=== PATIENT | male | born 1945 | race Caucasian/White ===

== ENCOUNTER → 2016-09-07 | Outpatient (CLI) | payer BC ==
[2016-09-07 10:56] LABS: Basophils # (auto) 0 uL; Basophils % (auto) 0.5 % (0.0-2.0); Eosinophils # (auto) 0.2 uL; Eosinophils % (auto) 2.1 % (0.0-7.0); Hematocrit 34.3 % (41.0-53.0); Hemoglobin 10.9 g/dL (13.5-17.5); Lymphocytes # (auto) 1.2 uL; Lymphocytes % (auto) 13.6 % (10.0-50.0); Mean Corpuscular Hemoglobin 29.8 pg (28.0-32.0); Mean Corpuscular Hgb Conc. 31.8 g/dL (32.0-36.0); Mean Corpuscular Volume 93.5 fL (80.0-100.0); Monocytes # (auto) 0.5 uL; Monocytes % (auto) 5.3 % (0.0-12.0); Neutrophils # (auto) 6.8 uL; Neutrophils % (auto) 78.5 % (37.0-80.0); Platelet Count (auto) 260 10^3/uL (140-450); Red Cell Distribution Width 14.1 % (11.6-16.0); White Blood Cell 8.6 10^3/uL (4.4-10.8)
[2016-09-07 11:59] LABS: Urine Bilirubin Negative (Negative); Urine Blood Negative /uL (Negative); Urine Color Yellow (Yellow); Urine Ketone Negative (Negative); Urine Nitrite Negative (Negative); Urine RBC <1 /hpf (0 - 3); Urine Squamous Epithelial Cell FEW /hpf (<5); Urine Urobilinogen Normal (Negative)
[2016-09-07 12:01] LABS: Urine Glucose 4+ mg/dL (Normal)
[2016-09-07 14:17] LABS: Cholesterol 160 mg/dL (<200); HDL Cholesterol 39 mg/dL (40-59); LDL Cholesterol 118 mg/dL (<100); Triglycerides 103 mg/dL (<150)
[2016-09-07 14:48] LABS: Albumin 3.8 g/dL (3.4-5.0); BUN/Creatinine Ratio 21.4; Bilirubin, Total 0.4 mg/dL (0.2-1.0); Calcium 9.1 mg/dL (8.5-10.1); Potassium 4.3 mmol/L (3.5-5.1); Total Protein 8.1 g/dL (6.4-8.2)
== END | disposition home or self-care (01) ==
LOC: LAB 08:57
DX: E11.21 Type 2 diabetes mellitus with diabetic nephropathy (principal); Z12.5 Encounter for screening for malignant neoplasm of prostate; E55.9 Vitamin D deficiency, unspecified
CPT/HCPCS: 36415; 80053; 80061; 81001; 82043; 82270; 82306; 83036; 84153; 84443; 85025

== ENCOUNTER → 2016-12-20 | Outpatient (CLI) | payer BC ==
[2016-12-20 10:07] LABS: Basophils # (auto) 0 uL; Basophils % (auto) 0.5 % (0.0-2.0); Eosinophils # (auto) 0.2 uL; Eosinophils % (auto) 2.2 % (0.0-7.0); Hematocrit 33.2 % (41.0-53.0); Hemoglobin 11.1 g/dL (13.5-17.5); Lymphocytes # (auto) 1.1 uL; Lymphocytes % (auto) 13.8 % (10.0-50.0); Mean Corpuscular Hemoglobin 31.4 pg (28.0-32.0); Mean Corpuscular Hgb Conc. 33.3 g/dL (32.0-36.0); Mean Corpuscular Volume 94.2 fL (80.0-100.0); Mean Platelet Volume 9.1 fL (7.4-10.4); Monocytes # (auto) 0.4 uL; Monocytes % (auto) 5.4 % (0.0-12.0); Neutrophils # (auto) 6.5 uL; Neutrophils % (auto) 78.1 % (37.0-80.0); Platelet Count (auto) 298 10^3/uL (140-450); Red Cell Distribution Width 13.7 % (11.6-16.0); White Blood Cell 8.3 10^3/uL (4.4-10.8)
[2016-12-20 10:34] LABS: Albumin 3.5 g/dL (3.4-5.0); BUN/Creatinine Ratio 17.5; Bilirubin, Total 0.5 mg/dL (0.2-1.0); Calcium 8.5 mg/dL (8.5-10.1); Magnesium 2.3 mg/dL (1.6-2.6); Phosphorus 3.1 mg/dL (2.5-4.90); Potassium 3.7 mmol/L (3.5-5.1); Total Protein 7.9 g/dL (6.4-8.2); Uric Acid 8.2 mg/dL (3.5-7.2)
[2016-12-20 11:42] LABS: Urine Bilirubin Negative (Negative); Urine Blood Negative /uL (Negative); Urine Color Yellow (Yellow); Urine Granular Cast FEW /lpf (0); Urine Ketone Negative (Negative); Urine Nitrite Negative (Negative); Urine RBC <1 /hpf (0 - 3); Urine Squamous Epithelial Cell FEW /hpf (<5); Urine Urobilinogen Normal (Negative); Urine pH 5.5 (5.0-8.0)
[2016-12-20 11:45] LABS: Urine Glucose 4+ mg/dL (Normal)
[2016-12-20 11:48] LABS: Urine Protein/Creatinine Ratio 0.61
== END | disposition home or self-care (01) ==
LOC: LAB 09:18
PROVIDERS: ATTEND Internal Medicine Nephrology
DX: N18.3 Chronic kidney disease, stage 3 (moderate) (principal); E83.39 Other disorders of phosphorus metabolism; E27.3 Drug-induced adrenocortical insufficiency; E83.2 Disorders of zinc metabolism; M10.9 Gout, unspecified; R97.20 Elevated prostate specific antigen [PSA]; R80.9 Proteinuria, unspecified; E55.9 Vitamin D deficiency, unspecified; E11.21 Type 2 diabetes mellitus with diabetic nephropathy
CPT/HCPCS: 36415; 80053; 80061; 81001; 82043; 82306; 82570; 83036; 83735; 83970; 84100; 84153; 84156; 84443; 84550; 85025

== ENCOUNTER 2017-02-06 07:47 | Day surgery (SDC) | payer BC ==
[2017-02-02 09:42] LABS: Basophils # (auto) 0 uL; CONDITION Y; Eosinophils # (auto) 0.2 uL; Eosinophils % (auto) 1.8 % (0.0-7.0); Hematocrit 32.7 % (41.0-53.0); Hemoglobin 10.8 g/dL (13.5-17.5); Lymphocytes % (auto) 11.3 % (10.0-50.0); Mean Platelet Volume 8.2 fL (7.4-10.4); Monocytes # (auto) 0.6 uL; Neutrophils # (auto) 7.3 uL; Neutrophils % (auto) 79.9 % (37.0-80.0); Platelet Count (auto) 275 10^3/uL (140-450); Red Cell Distribution Width 13.9 % (11.6-16.0); White Blood Cell 9.1 10^3/uL (4.4-10.8)
[2017-02-02 09:57] LABS: Urine Bilirubin Negative (Negative); Urine Blood Negative /uL (Negative); Urine Color Yellow (Yellow); Urine Ketone Negative (Negative); Urine Nitrite Negative (Negative); Urine RBC <1 /hpf (0 - 3); Urine Squamous Epithelial Cell FEW /hpf (<5); Urine Urobilinogen Normal (Negative); Urine pH 5.5 (5.0-8.0)
[2017-02-02 10:04] LABS: Urine Glucose 4+ mg/dL (Normal)
[2017-02-02 10:06] LABS: Albumin 3.4 g/dL (3.4-5.0); BUN/Creatinine Ratio 19.1; Bilirubin, Total 0.3 mg/dL (0.2-1.0); Calcium 8.5 mg/dL (8.5-10.1); Potassium 4.2 mmol/L (3.5-5.1); Total Protein 7.3 g/dL (6.4-8.2)
[2017-02-02 10:07] LABS: INR 0.92 (0.9-1.15); Partial Thromboplastin Time 26.6 sec (22.64-33.71)
[~2017-02-06] VITALS: Ht 167.6 cm; Wt 93.0 kg
[~2017-02-06 07:47] MED LIST: CANA300T OR; EXENINJ SC; GLIP-115 PO; TERA5CAP42 PO
[2017-02-06] MEDS ORDERED: ceFAZolin 1GM/50ML D5W 50 ML IV ONE (08:58)
[2017-02-06] MEDS ORDERED: PROPOFOL 10 MG/ML 20 ML IV ONE (09:55)
[2017-02-06] MEDS ORDERED: fentaNYL CITRATE 100 MCG/2 ML VL ONE (09:55)
[2017-02-06] MEDS ORDERED: HYDROCORTISONE SOD SUCC 100 MG/2ML INJ VIAL ONE (10:18)
[2017-02-06] MEDS ORDERED: ePHEDrine SULFATE 50 MG/ML AMP IV PRN (11:00)
[2017-02-06] MEDS ORDERED: ONDANSETRON HCL 4 MG/2 ML VIAL IV ONE (11:00)
[2017-02-06] MEDS ORDERED: hydrALAZINE HCL 20 MG/ML VL IV PRN (11:00)
[2017-02-06] MEDS ORDERED: fentaNYL CITRATE 100 MCG/2 ML VL IV ONE (11:00)
[2017-02-06 12:00] VITALS: BP 168/78
== END 2017-02-06 12:00 | disposition home or self-care (01) ==
LOC: SUR 07:47
PROVIDERS: ATTEND Urology
DX: N20.0 Calculus of kidney (principal); E11.22 Type 2 diabetes mellitus with diabetic chronic kidney disease; N18.3 Chronic kidney disease, stage 3 (moderate); E66.9 Obesity, unspecified
CPT/HCPCS: 36415; 50590; 80053; 81001; 82962; 85025; 85610; 85730; J0690; J1720; J2704; J3010

== ENCOUNTER → 2017-04-10 | Outpatient (CLI) | payer BC ==
[2017-04-10 17:16] LABS: BUN/Creatinine Ratio 20.7; Calcium 8.5 mg/dL (8.5-10.1); Potassium 3.9 mmol/L (3.5-5.1)
== END | disposition home or self-care (01) ==
LOC: LAB 15:44
PROVIDERS: ATTEND Family Medicine
DX: E11.22 Type 2 diabetes mellitus with diabetic chronic kidney disease (principal); N18.3 Chronic kidney disease, stage 3 (moderate)
CPT/HCPCS: 36415; 80048; 83036

== ENCOUNTER → 2017-10-17 | Outpatient (CLI) | payer BC | END | disposition home or self-care (01) | LOC: LAB 07:52 | PROVIDERS: ATTEND Family Medicine | DX: E11.22 Type 2 diabetes mellitus with diabetic chronic kidney disease (principal); N18.3 Chronic kidney disease, stage 3 (moderate) | CPT/HCPCS: 36415; 83036 ==

== ENCOUNTER → 2018-01-24 | Outpatient (CLI) | payer BC ==
[2018-01-24 09:08] LABS: Basophils # (auto) 0.1 uL; Basophils % (auto) 0.7 % (0.0-2.0); Eosinophils # (auto) 0.1 uL; Hematocrit 32.8 % (41.0-53.0); Hemoglobin 10.6 g/dL (13.5-17.5); Lymphocytes % (auto) 13.4 % (10.0-50.0); Mean Corpuscular Hemoglobin 30.5 pg (28.0-32.0); Mean Corpuscular Hgb Conc. 32.5 g/dL (32.0-36.0); Monocytes # (auto) 0.5 uL; Monocytes % (auto) 6.5 % (0.0-12.0); Neutrophils # (auto) 5.7 uL; Neutrophils % (auto) 77.4 % (37.0-80.0); Platelet Count (auto) 218 10^3/uL (140-450); Red Blood Cells 3.48 10^6/uL (4.5-5.90); Red Cell Distribution Width 14.9 % (11.8-14.3); White Blood Cell 7.3 10^3/uL (4.4-10.8)
[2018-01-24 09:17] LABS: Urine Bacteria NONE SEEN /hpf (None Seen); Urine Blood TRACE /uL (Negative); Urine Specific Gravity 1.023 (1.001-1.035); Urine WBC 3 /hpf (0 - 3)
[2018-01-24 09:41] LABS: Albumin 3.3 g/dL (3.4-5.0); BUN/Creatinine Ratio 20.5; Bilirubin, Total 0.4 mg/dL (0.2-1.0); Calcium 8.4 mg/dL (8.5-10.1); Potassium 4.5 mmol/L (3.5-5.1); Total Protein 7.4 g/dL (6.4-8.2)
== END | disposition home or self-care (01) ==
LOC: LAB 08:54
PROVIDERS: ATTEND Family Medicine
DX: I12.9 Hypertensive chronic kidney disease with stage 1 through stage 4 chronic kidney disease, or unspecified chronic kidney disease (principal); E11.22 Type 2 diabetes mellitus with diabetic chronic kidney disease; N18.3 Chronic kidney disease, stage 3 (moderate); E11.21 Type 2 diabetes mellitus with diabetic nephropathy; E78.00 Pure hypercholesterolemia, unspecified
CPT/HCPCS: 36415; 80053; 80061; 81001; 82043; 82306; 83036; 84153; 85025

== ENCOUNTER → 2019-02-20 | Outpatient (CLI) | payer BC ==
[~2019-02-20] MED LIST changes: -GLIP-115 PO; +GLIP5TAB12 PO
[2019-02-20 09:03] LABS: Basophils # (auto) 0.1 uL; Basophils % (auto) 0.5 % (0.0-2.0); Eosinophils # (auto) 0.2 uL; Eosinophils % (auto) 2.2 % (0.0-7.0); Hematocrit 29.4 % (41.0-53.0); Hemoglobin 9.5 g/dL (13.5-17.5); Lymphocytes # (auto) 1.2 uL; Mean Corpuscular Hemoglobin 31.1 pg (28.0-32.0); Mean Corpuscular Hgb Conc. 32.4 g/dL (32.0-36.0); Mean Corpuscular Volume 95.9 fL (80.0-100.0); Monocytes # (auto) 0.6 uL; Monocytes % (auto) 6.2 % (0.0-12.0); Neutrophils # (auto) 7.8 uL; Neutrophils % (auto) 79.1 % (37.0-80.0); Nucleated Red Blood Cells % 0.1 %; Platelet Count (auto) 263 10^3/uL (140-450); Red Blood Cells 3.07 10^6/uL (4.5-5.90); Red Cell Distribution Width 14.5 % (11.8-14.3); White Blood Cell 9.9 10^3/uL (4.4-10.8)
[2019-02-20 09:07] LABS: Urine Bacteria NONE SEEN /hpf (None Seen); Urine Blood Negative /uL (Negative); Urine Specific Gravity 1.015 (1.001-1.035); Urine WBC 1 /hpf (0 - 3)
[2019-02-20 10:25] LABS: Potassium 4.3 mmol/L (3.5-5.1)
[2019-02-20 10:36] LABS: Albumin 3.1 g/dL (3.4-5.0); BUN/Creatinine Ratio 25.3; Bilirubin, Total 0.2 mg/dL (0.2-1.0); Total Protein 7.7 g/dL (6.4-8.2); Uric Acid 9.2 mg/dL (3.5-7.2)
== END | disposition home or self-care (01) ==
LOC: LAB 08:39
PROVIDERS: ATTEND Nurse Practitioner
DX: E78.5 Hyperlipidemia, unspecified (principal); E11.9 Type 2 diabetes mellitus without complications
CPT/HCPCS: 36415; 80053; 80061; 81001; 82306; 83036; 84153; 84443; 84550; 85025

== ENCOUNTER → 2019-07-29 | Outpatient (CLI) | payer BC ==
[2019-07-29 10:48] LABS: Albumin 2.6 g/dL (3.4-5.0); Calcium 8.3 mg/dL (8.5-10.1); Potassium 3.9 mmol/L (3.5-5.1)
[2019-07-29 10:50] LABS: Urine Bacteria NONE SEEN /hpf (None Seen); Urine Blood Negative /uL (Negative); Urine Specific Gravity 1.016 (1.001-1.035); Urine WBC 2 /hpf (0 - 3)
[2019-07-29 10:54] LABS: Bilirubin, Total 0.2 mg/dL (0.2-1.0); Total Protein 6.8 g/dL (6.4-8.2)
== END | disposition home or self-care (01) ==
LOC: LAB 09:49
PROVIDERS: ATTEND Nurse Practitioner
DX: Z00.00 Encounter for general adult medical examination without abnormal findings (principal); E78.5 Hyperlipidemia, unspecified; E11.9 Type 2 diabetes mellitus without complications
CPT/HCPCS: 36415; 80053; 80061; 81001; 82043; 83036; 84443

== ENCOUNTER → 2019-08-21 | Outpatient (CLI) | payer BC | END | disposition home or self-care (01) | LOC: LAB 07:06 | PROVIDERS: ATTEND Nurse Practitioner | DX: L03.311 Cellulitis of abdominal wall (principal) | CPT/HCPCS: 87077; 87186; 87205 ==

== ENCOUNTER → 2019-09-02 | Day surgery (SDC) | payer BC ==
[2019-08-29 10:58] LABS: Basophils # (auto) 0 uL; Eosinophils # (auto) 0.1 uL; Mean Corpuscular Volume 88.8 fL (80.0-100.0); Monocytes # (auto) 0.5 uL; Monocytes % (auto) 4.3 % (0.0-12.0)
[2019-08-29 11:00] LABS: Basophils % (auto) 0.4 % (0.0-2.0); Eosinophils % (auto) 0.6 % (0.0-7.0); Hematocrit 25.9 % (41.0-53.0); Hemoglobin 8.1 g/dL (13.5-17.5); Lymphocytes % (auto) 8.9 % (10.0-50.0); Mean Corpuscular Hemoglobin 27.7 pg (28.0-32.0); Mean Corpuscular Hgb Conc. 31.2 g/dL (32.0-36.0); Neutrophils # (auto) 9.4 uL; Neutrophils % (auto) 85.8 % (37.0-80.0); Platelet Count (auto) 374 10^3/uL (140-450); Red Blood Cells 2.92 10^6/uL (4.5-5.90); Red Cell Distribution Width 15.2 % (11.8-14.3); White Blood Cell 10.9 10^3/uL (4.4-10.8)
[2019-08-29 11:12] LABS: INR 0.99 (0.9-1.15); Partial Thromboplastin Time 27.2 sec (23.64-32.05)
[~2019-09-02] VITALS: Ht 167.6 cm; Wt 90.7 kg
[~2019-09-02] MED LIST changes: -CANA300T OR; -EXENINJ SC; +METF-370 PO; +SODIUM CHLORIDE LOCK 10 ML ONE; -TERA5CAP42 PO; +diphenhdrAMINE HCL 50 MG/1 ML VL ONE
[2019-09-02] MEDS: MIDAZOLAM HCL 5 MG/ML-1ML VIAL ONE ×2 (12:37→12:41)
[2019-09-02] MEDS: fentaNYL CITRATE 100 MCG/2 ML VL ONE ×2 (12:37→12:41)
[2019-09-02 13:29] VITALS: BP 144/59
== END | disposition home or self-care (01) ==
LOC: GI 11:07
PROVIDERS: ATTEND Internal Medicine Gastroenterology
DX: Z12.11 Encounter for screening for malignant neoplasm of colon (principal); K63.89 Other specified diseases of intestine; K52.89 Other specified noninfective gastroenteritis and colitis; K57.30 Diverticulosis of large intestine without perforation or abscess without bleeding; E11.9 Type 2 diabetes mellitus without complications; Z79.899 Other long term (current) drug therapy; Z79.84 Long term (current) use of oral hypoglycemic drugs
CPT/HCPCS: 36415; 45380; 82962; 85025; 85610; 85730; 88305; J1200; J2250; J3010; J7030; 99152; 99153

== ENCOUNTER → 2019-11-06 | Outpatient (CLI) | payer BC ==
[~2019-11-06] MED LIST changes: -SODIUM CHLORIDE LOCK 10 ML ONE; -diphenhdrAMINE HCL 50 MG/1 ML VL ONE
[2019-11-06 11:06] LABS: Basophils # (auto) 0 10 ^3/uL (0-0.2); Monocytes # (auto) 0.5 10 ^3/uL (0-1.3); Platelet Count (auto) 297 10^3/uL (140-450)
[2019-11-06 11:08] LABS: Basophils % (auto) 0.4 % (0.0-2.0); Eosinophils # (auto) 0.2 10 ^3/uL (0-0.8); Eosinophils % (auto) 2.1 % (0.0-7.0); Hematocrit 21.3 % (41.0-53.0); Lymphocytes # (auto) 0.9 10 ^3/uL (0.4-5.4); Lymphocytes % (auto) 10.6 % (10.0-50.0); Mean Corpuscular Hemoglobin 28.3 pg (28.0-32.0); Mean Corpuscular Hgb Conc. 32.3 g/dL (32.0-36.0); Mean Corpuscular Volume 87.7 fL (80.0-100.0); Neutrophils # (auto) 6.9 10 ^3/uL (1.6-8.6); Neutrophils % (auto) 80.9 % (37.0-80.0); Red Blood Cells 2.42 10^6/uL (4.5-5.90); White Blood Cell 8.5 10^3/uL (4.4-10.8)
[2019-11-06 11:20] LABS: Hemoglobin 6.9 g/dL (13.5-17.5)
[2019-11-06 11:24] LABS: Albumin 2.4 g/dL (3.4-5.0); Calcium 7.6 mg/dL (8.5-10.1)
[2019-11-06 11:31] LABS: BUN/Creatinine Ratio 14.4; Bilirubin, Total 0.1 mg/dL (0.2-1.0); Total Protein 6.3 g/dL (6.4-8.2)
[2019-11-06 11:38] LABS: Urine Bacteria NONE SEEN /hpf (None Seen); Urine Blood Negative /uL (Negative); Urine Mucus FEW (None Seen); Urine Specific Gravity 1.018 (1.001-1.035); Urine WBC 16 /hpf (0 - 3)
== END | disposition home or self-care (01) ==
LOC: LAB 10:50
PROVIDERS: ATTEND Nurse Practitioner
DX: E11.9 Type 2 diabetes mellitus without complications (principal); E78.5 Hyperlipidemia, unspecified
CPT/HCPCS: 36415; 80053; 80061; 81001; 83036; 85025

== ENCOUNTER → 2019-11-11 | Outpatient (CLI) | payer BC ==
[2019-11-11 10:41] LABS: Eosinophils # (auto) 0.1 10 ^3/uL (0-0.8); Hemoglobin 7.5 g/dL (13.5-17.5); Lymphocytes # (auto) 0.9 10 ^3/uL (0.4-5.4); Mean Corpuscular Volume 88.5 fL (80.0-100.0); Monocytes # (auto) 0.5 10 ^3/uL (0-1.3); Monocytes % (auto) 5.1 % (0.0-12.0); Neutrophils # (auto) 8.8 10 ^3/uL (1.6-8.6)
[2019-11-11 10:43] LABS: Basophils # (auto) 0.1 10 ^3/uL (0-0.2); Basophils % (auto) 0.6 % (0.0-2.0); Eosinophils % (auto) 0.8 % (0.0-7.0); Hematocrit 24.1 % (41.0-53.0); Mean Corpuscular Hemoglobin 27.7 pg (28.0-32.0); Mean Corpuscular Hgb Conc. 31.3 g/dL (32.0-36.0); Neutrophils % (auto) 84.5 % (37.0-80.0); Platelet Count (auto) 366 10^3/uL (140-450); Red Blood Cells 2.72 10^6/uL (4.5-5.90); Red Cell Distribution Width 17.7 % (11.8-14.3); White Blood Cell 10.5 10^3/uL (4.4-10.8)
[2019-11-11 11:00] LABS: INR 1.01 (0.9-1.15)
[2019-11-11 11:43] LABS: % Iron Saturation 5.3 % (20-55)
== END | disposition home or self-care (01) ==
LOC: LAB 10:29
PROVIDERS: ATTEND Nurse Practitioner
DX: D64.9 Anemia, unspecified (principal)
CPT/HCPCS: 36415; 82270; 83540; 83550; 85025; 85610; 85730

== ENCOUNTER 2019-12-12 13:21 | Inpatient (IN) | payer BC ==
[~2019-12-12] VITALS: Ht 167.6 cm; Wt 85.2 kg
[2019-12-12 20:00] VITALS: BP 167/68
--- NOTE | 2019-12-12 20:00 | NUR ---
PT HERE FROM [facility];DIRECT ADMIT.
[2019-12-12] MEDS: SODIUM CHLORIDE 0.9% 1,000 ML IV SCH (20:42)
[2019-12-12] MEDS ORDERED: DEXTROSE (50%) 50ML SYRG IV PRN (20:45)
[2019-12-12] MEDS ORDERED: ONDANSETRON HCL 4 MG/2 ML VIAL IV PRN (20:45)
[2019-12-12] MEDS ORDERED: HYDROcodone-ACET 5/325MG TAB PO PRN (20:45)
[2019-12-12] MEDS ORDERED: MORPHINE SULF INJ 2 MG/ML SYRINGE 1ML IV PRN (20:45)
[2019-12-12] MEDS ORDERED: DOCUSATE SOD 100 MG CAP PO PRN (20:45)
--- NOTE | 2019-12-12 21:30 | NUR ---
PATIENT UNABLE TO PROVIDE COMPLETE MEDICATION RECONCILIATION. PATIENT DID NOT BRING LIST. WILL INFORM RN.
[2019-12-12 22:00] VITALS: BP 167/68
[2019-12-12 22:00] LABS: Basophils # (auto) 0 10 ^3/uL (0-0.2); Basophils % (auto) 0.5 % (0.0-2.0); Eosinophils # (auto) 0.2 10 ^3/uL (0-0.8); Lymphocytes # (auto) 0.9 10 ^3/uL (0.4-5.4); Monocytes # (auto) 0.8 10 ^3/uL (0-1.3); Monocytes % (auto) 8.8 % (0.0-12.0); Neutrophils # (auto) 7.1 10 ^3/uL (1.6-8.6); Red Cell Distribution Width 16.2 % (11.8-14.3); White Blood Cell 9.1 10^3/uL (4.4-10.8)
[2019-12-12 22:01] LABS: Eosinophils % (auto) 1.8 % (0.0-7.0); Hematocrit 26.4 % (41.0-53.0); Hemoglobin 8.4 g/dL (13.5-17.5); Lymphocytes % (auto) 10.4 % (10.0-50.0); Mean Corpuscular Hgb Conc. 31.8 g/dL (32.0-36.0); Mean Corpuscular Volume 87.9 fL (80.0-100.0); Neutrophils % (auto) 78.5 % (37.0-80.0); Platelet Count (auto) 375 10^3/uL (140-450)
--- NOTE | 2019-12-12 22:03 | NUR ---
PT BACK FROM RADIOLOGY.
[2019-12-12] MEDS ORDERED: VANCOMYCIN 1GM/250ML 250 ML IV ONE (22:30)
--- NOTE | 2019-12-12 23:09 | NUR ---
PT MEDICATED WITH TYLENOL FOR HEADACHE-PAIN OF 4.
[2019-12-12] MEDS: CLINDAMYCIN 600MG IV 50 ML IV SCH (23:18)
[2019-12-12] MEDS: ACETAMINOPHEN 325 MG TAB PO PRN (23:19)
--- NOTE | 2019-12-12 23:38 | NUR ---
PHOTOS TAKEN OF UPPER CHEST INFECTED FASCIA AND LOWER ABDOMINAL CELLULITIS.
[2019-12-12 23:40] LABS: BUN/Creatinine Ratio 18.8; Calcium 7.8 mg/dL (8.5-10.1)
[2019-12-13] MEDS: InsuLIN REG 1unit/0.01ml Soln (100units/ml) SC SCH ×6 (04:00→22:18)
[2019-12-13] MEDS: ACCU-CHEK COMFORT CURVE STRIP VI SCH ×6 (04:00→22:17)
[2019-12-13 05:00] VITALS: BP 134/62
[2019-12-13] MEDS: CLINDAMYCIN 600MG IV 50 ML IV SCH (05:07)
--- NOTE | 2019-12-13 05:45 | NUR ---
IV LEFT HAND LEAKING;20 GAUGE INSERTED IN LEFT RADIAL AREA-LEFT WRIST. PT TOLERATED WELL.
[2019-12-13] MEDS: SODIUM CHLORIDE 0.9% 1,000 ML IV SCH ×2 (06:42→16:42)
--- NOTE | 2019-12-13 07:41 | NUR ---
RE: MRSA MRSA collected by CECY RINCON.
--- NOTE | 2019-12-13 08:00 | NUR ---
Morning note Patient resting in bed with even and unlabored respirations, no distress noted. Patient denies blood in the stool, black stool, blood in the urine or sputum with blood in it. Patient states "Just a few days okay the doctor told me my kidney function was about 30% and that it may not be producing the stuff to make the blood." Instructed patient on POC, fall precautions and to call for assistance as needed. patient verbalized understanding. Fall precautions in place with call light within reach.
[2019-12-13 08:41] VITALS: BP 141/73
--- NOTE | 2019-12-13 09:00 | NUR ---
RE: Insulin administration Medication held due to patient having a low POC glucose reading after administration of previous dose of insulin per sliding scale order. Patient to be reassessed at next scheduled time.
--- NOTE | 2019-12-13 09:47 | NUR ---
RE: surgical consult - spoke with Dr. Burrows Hospitalist to determine reason for anemia and then reconsult surgical after, if needed, per Dr. Burrows.
[2019-12-13] MEDS ORDERED: VANCOMYCIN 1GM/250ML 250 ML IV SCH (11:00)
--- NOTE | 2019-12-13 11:00 | NUR ---
WOUND CARE NOTE: Wound care in to see patient per wound care request regarding wounds that are noted present on admission. Bedside nurse took photograph of patient's wounds upon admission for reference. Patient is 74 years old male with admitting diagnosis of CVA, Anemia. Patient is resting in bed in Rm. 216B. Patient is awake, alert and oriented. He's denies any pain at this time. He's self turning and repositioning and his Jay score is 21. Noted patient's upper chest (5x4.5x0.3cm) and lower abdomen (7x28x1.5cm) has open full thickness wound. Wound beds are red with pink and bright red genaro wound. Chest wound has minimal serosanguineous drainage. Lower abdominal wound has moderate serous drainage. No odor noted on wounds. Patient reported he has had the wounds "for over six months". He added that abdominal wounds started with "insulin injections". He continues further that some pocket of pus developed, opened and drain. Wound culture specimen taken and sent to lab for processing. Cleansed wounds with wound cleanser, patted dry with gauze. Fill open wound cavity to Rt lateral aspect of abdominal wound with alginate rope. Covered wound beds with Thera honey gauze. Covered chest wound with Opti foam gentle dressing. Covered abdominal wound with abd pads and secured with Medipore tape per MD order. Patent tolerated well and denies any other wound. RECOMMENDATION: Nursing to continue with dressing changes to chest and lower abdominal wounds per MD order, Dietary consult, surgical consult, redistribute pressure points with pillows, continue monitoring by wound care while patient is hospitalized. Addendum: 12/13/19 at 1530 by Kristy Correa RN Amended: Links added.
[2019-12-13] MEDS: ACETAMINOPHEN 325 MG TAB PO PRN ×2 (11:09→22:05)
[2019-12-13] MEDS ORDERED: DEXTROSE (50%) 50ML SYRG IV PRN (12:15)
[2019-12-13] MEDS ORDERED: VANCOMYCIN PER PHARMACY 0 MG IV SCH (12:15)
--- NOTE | 2019-12-13 12:15 | NUR ---
MD was at bedside - notified MD RE: BP Dr. Ryan Huffman was at bedside. POC discussed with the patient and this RN. Notified MD of elevated BP. MD verbalized understanding. Home medications refilled from external me history. Orders received and read back to verify.
[2019-12-13 12:24] VITALS: BP_SYST 147; BP_SYST 159; BP_DIAS 59; BP_DIAS 73
[2019-12-13] MEDS: PIPERACILLIN-TAZOB 2.25GM 50 ML IV SCH ×2 (13:56→18:26)
[2019-12-13] MEDS ORDERED: PIPERACILLIN-TAZOB 3.375GM 100 ML IV SCH (14:00)
[2019-12-13 16:22] VITALS: BP 130/59
[2019-12-13] MEDS: FERROUS SULFATE 325 MG TAB PO SCH (18:26)
--- NOTE | 2019-12-13 18:35 | NUR ---
Closing note patient resting in bed with even and unlabored respirations, no distress noted. Fall precautions in place with call light within reach.
--- NOTE | 2019-12-13 19:29 | NUR ---
Care endorsed SERGEY Samuels.
--- NOTE | 2019-12-13 19:30 | NUR ---
Opening Shift Note Assumed care of patient, awake and alert watching TV. No S/S of distress/SOB or pain. Instructed on POC and pt VU; he will call for assist PRN. This RN will continue to monitor for changes Q1hr and PRN. Bed is in low position with HOB in Woodard's position. Nurse call light at pt's side.
[2019-12-13 22:00] VITALS: BP 129/63
[2019-12-13] MEDS: ATORVASTATIN 20 MG TAB PO SCH (22:00)
[2019-12-13] MEDS: TERAZOSIN HCL 5 MG CAP PO SCH (22:01)
[2019-12-13 23:36] LABS: Urine Bacteria FEW /hpf (None Seen); Urine Blood TRACE /uL (Negative); Urine Specific Gravity 1.015 (1.001-1.035); Urine Sperm PRESENT /hpf (None Seen); Urine WBC 10 /hpf (0 - 3)
[2019-12-14 05:00] VITALS: BP 126/60
[2019-12-14 05:57] LABS: Basophils # (auto) 0.1 10 ^3/uL (0-0.2); Basophils % (auto) 0.6 % (0.0-2.0); Eosinophils # (auto) 0.3 10 ^3/uL (0-0.8); Eosinophils % (auto) 2.7 % (0.0-7.0); Hematocrit 27.1 % (41.0-53.0); Hemoglobin 8.7 g/dL (13.5-17.5); Lymphocytes % (auto) 9.5 % (10.0-50.0); Mean Corpuscular Hemoglobin 28.4 pg (28.0-32.0); Mean Corpuscular Hgb Conc. 32.2 g/dL (32.0-36.0); Monocytes # (auto) 0.8 10 ^3/uL (0-1.3); Neutrophils # (auto) 8.2 10 ^3/uL (1.6-8.6); Neutrophils % (auto) 79.2 % (37.0-80.0); Nucleated Red Blood Cells % 0.1 %; Platelet Count (auto) 349 10^3/uL (140-450); Red Blood Cells 3.08 10^6/uL (4.5-5.90); Red Cell Distribution Width 16.4 % (11.8-14.3); White Blood Cell 10.3 10^3/uL (4.4-10.8)
[2019-12-14] MEDS: ACCU-CHEK COMFORT CURVE STRIP VI SCH ×4 (06:07→21:13)
[2019-12-14] MEDS: InsuLIN REG 1unit/0.01ml Soln (100units/ml) SC SCH ×4 (06:08→21:17)
[2019-12-14] MEDS: PIPERACILLIN-TAZOB 2.25GM 50 ML IV SCH ×5 (06:09→23:58)
[2019-12-14 06:16] LABS: INR 1.03 (0.9-1.15); Partial Thromboplastin Time 28.3 sec (23.64-32.05)
[2019-12-14 06:26] LABS: Potassium 3.9 mmol/L (3.5-5.1)
[2019-12-14 06:31] LABS: Calcium 7.8 mg/dL (8.5-10.1)
[2019-12-14 08:51] VITALS: BP 126/76
[2019-12-14] MEDS ORDERED: HCTZ 25 MG TAB PO SCH (10:00)
[2019-12-14] MEDS: SODIUM CHLORIDE 0.9% 1,000 ML IV SCH ×3 (11:15→22:42)
[2019-12-14] MEDS: PANTOPRAZOLE 40 MG/10 ML VIAL INJ IV SCH (11:40)
[2019-12-14] MEDS: FERROUS SULFATE 325 MG TAB PO SCH ×2 (11:40→17:54)
[2019-12-14] MEDS: CITALOPRAM HYDROBR 20 MG TAB PO SCH (11:41)
[2019-12-14 12:25] VITALS: BP 165/69
--- NOTE | 2019-12-14 12:42 | NUR ---
Nutrition Assessment Notes Please refer to link for full assessment notes. Est Energy needs: [address] kcals (20-23 kcal/kgBW) Est Protein needs: 66-74 gms/day (0.8-0.9 gm/kgBW) d/t GFR (Stg 4) Will continue to monitor and reassess prn. Addendum: 12/14/19 at [address] Amended: Links added.
[2019-12-14] MEDS ORDERED: VANCOMYCIN 500 MG in D5W 5% 100 ML IV ONE (16:00)
[2019-12-14 16:33] VITALS: BP 154/59
--- NOTE | 2019-12-14 19:30 | NUR ---
Opening Shift Note Assumed care of patient, AOX4. No S/S of distress/SOB. Fall and safety precautions in place. Call light within reach and able to use. Instructed on plan of care and to call for assist PRN, patient verbalized understanding and in agreement. Will continue to monitor for changes Q1hr and PRN.
[2019-12-14] MEDS: ACETAMINOPHEN 325 MG TAB PO PRN (20:34)
[2019-12-14] MEDS: ATORVASTATIN 20 MG TAB PO SCH (21:13)
[2019-12-14] MEDS: TERAZOSIN HCL 5 MG CAP PO SCH (21:13)
[2019-12-14 22:45] VITALS: BP 124/51
[2019-12-14 22:50] VITALS: BP 156/71
--- NOTE | 2019-12-15 | NUR ---
NPO Explained to patient purpose/indication of NPO status for procedure. Patient verbalized understanding and in agreement. Will continue to monitor.
--- NOTE | 2019-12-15 01:34 | NUR ---
EKG OBTAINED AND PLACED IN CHART
[2019-12-15 05:15] LABS: Basophils # (auto) 0.1 10 ^3/uL (0-0.2); Basophils % (auto) 0.5 % (0.0-2.0); Eosinophils # (auto) 0.3 10 ^3/uL (0-0.8); Eosinophils % (auto) 2.7 % (0.0-7.0); Hematocrit 27.6 % (41.0-53.0); Hemoglobin 8.9 g/dL (13.5-17.5); Lymphocytes # (auto) 0.9 10 ^3/uL (0.4-5.4); Lymphocytes % (auto) 8.7 % (10.0-50.0); Mean Corpuscular Hemoglobin 27.8 pg (28.0-32.0); Mean Corpuscular Hgb Conc. 32.1 g/dL (32.0-36.0); Mean Corpuscular Volume 86.7 fL (80.0-100.0); Monocytes # (auto) 0.7 10 ^3/uL (0-1.3); Monocytes % (auto) 7.4 % (0.0-12.0); Neutrophils # (auto) 8.1 10 ^3/uL (1.6-8.6); Neutrophils % (auto) 80.7 % (37.0-80.0); Platelet Count (auto) 344 10^3/uL (140-450); Red Blood Cells 3.18 10^6/uL (4.5-5.90); Red Cell Distribution Width 16.2 % (11.8-14.3); White Blood Cell 10.1 10^3/uL (4.4-10.8)
[2019-12-15] MEDS: PIPERACILLIN-TAZOB 2.25GM 50 ML IV SCH ×3 (05:32→17:28)
[2019-12-15 05:33] LABS: BUN/Creatinine Ratio 18.5; Calcium 7.8 mg/dL (8.5-10.1); Potassium 4.3 mmol/L (3.5-5.1)
[2019-12-15 05:36] VITALS: BP 143/69
[2019-12-15] MEDS: ACCU-CHEK COMFORT CURVE STRIP VI SCH ×4 (06:19→21:13)
[2019-12-15] MEDS: InsuLIN REG 1unit/0.01ml Soln (100units/ml) SC SCH ×4 (06:20→21:15)
--- NOTE | 2019-12-15 07:21 | NUR ---
Opening Shift Note Assumed care of patient, awake and alert. No S/S of distress/SOB or pain. Instructed on POC and to call for assist PRN, will continue to monitor for changes Q1hr and PRN. Bed is set in lowest locked position with side rails up x 2 for safety and call light is within reach.
[2019-12-15 08:00] VITALS: BP 122/71
[2019-12-15] MEDS: FERROUS SULFATE 325 MG TAB PO SCH ×3 (08:00→17:29)
[2019-12-15 08:37] VITALS: BP 122/71
[2019-12-15] MEDS: SODIUM CHLORIDE 0.9% 1,000 ML IV SCH ×2 (09:10→17:48)
[2019-12-15] MEDS: CITALOPRAM HYDROBR 20 MG TAB PO SCH (10:00)
[2019-12-15] MEDS: PANTOPRAZOLE 40 MG/10 ML VIAL INJ IV SCH ×2 (10:07→21:13)
--- NOTE | 2019-12-15 10:57 | NUR ---
MD Sanchez at bedside for hematology consultation
--- NOTE | 2019-12-15 11:05 | NUR ---
Patient off unit Taken down to pre-op for procedure. IV flushed and is intact/patent. No distress noted upon departure.
[2019-12-15] MEDS ORDERED: LIDOCAINE VISCOUS 2% 15ML UD ONE (11:09)
[2019-12-15] MEDS ORDERED: SODIUM CHLORIDE LOCK 10 ML ONE (11:09)
[2019-12-15] MEDS: MIDAZOLAM HCL 5 MG/ML-1ML VIAL ONE ×2 (11:30→11:33)
[2019-12-15] MEDS: fentaNYL CITRATE 100 MCG/2 ML VL ONE ×3 (11:30→11:35)
[2019-12-15 13:00] VITALS: BP 146/61
--- NOTE | 2019-12-15 13:00 | NUR ---
Patient returned to unit Patient is currently resting in bed with eyes closed, no distress noted, breaths are even and unlabored. Will continue to monitor.
--- NOTE | 2019-12-15 15:00 | NUR ---
Wound care performed per orders Patient tolerated well. Will continue to monitor site.
[2019-12-15 17:00] VITALS: BP 149/64
[2019-12-15] MEDS: SUCRALFATE 1 GM/10 ML ORAL SUSP PO SCH ×2 (17:28→21:13)
--- NOTE | 2019-12-15 19:13 | NUR ---
Care endorsed to NOC RN.
[2019-12-15] MEDS: TERAZOSIN HCL 5 MG CAP PO SCH (21:13)
[2019-12-15] MEDS: ATORVASTATIN 20 MG TAB PO SCH (21:14)
[2019-12-15 22:00] VITALS: BP 155/74
[2019-12-16] MEDS: PIPERACILLIN-TAZOB 2.25GM 50 ML IV SCH ×5 (00:23→23:47)
[2019-12-16] MEDS: SODIUM CHLORIDE 0.9% 1,000 ML IV SCH ×2 (04:42→15:05)
[2019-12-16 05:00] VITALS: BP 140/56
--- NOTE | 2019-12-16 05:20 | NUR ---
PAIN PATIENT SPECIFICALLY REQUESTS TYLENOL FOR ACHING 7/10 PAIN TO HEAD. SEE EMAR FOR ADMINISTRATION. WILL CONTINUE TO MONITOR.
[2019-12-16] MEDS: ACETAMINOPHEN 325 MG TAB PO PRN ×2 (05:28→21:45)
[2019-12-16] MEDS: SUCRALFATE 1 GM/10 ML ORAL SUSP PO SCH ×4 (06:09→21:32)
[2019-12-16] MEDS: ACCU-CHEK COMFORT CURVE STRIP VI SCH ×4 (06:10→21:33)
[2019-12-16] MEDS: InsuLIN REG 1unit/0.01ml Soln (100units/ml) SC SCH ×4 (06:12→21:43)
[2019-12-16 06:27] LABS: Basophils # (auto) 0.1 10 ^3/uL (0-0.2); Basophils % (auto) 0.8 % (0.0-2.0); Eosinophils # (auto) 0.3 10 ^3/uL (0-0.8); Eosinophils % (auto) 2.7 % (0.0-7.0); Hematocrit 28.5 % (41.0-53.0); Hemoglobin 9.1 g/dL (13.5-17.5); Lymphocytes % (auto) 10.1 % (10.0-50.0); Mean Corpuscular Hemoglobin 28.1 pg (28.0-32.0); Mean Corpuscular Volume 87.6 fL (80.0-100.0); Monocytes # (auto) 0.8 10 ^3/uL (0-1.3); Monocytes % (auto) 7.8 % (0.0-12.0); Neutrophils # (auto) 7.6 10 ^3/uL (1.6-8.6); Neutrophils % (auto) 78.6 % (37.0-80.0); Platelet Count (auto) 347 10^3/uL (140-450); Red Blood Cells 3.25 10^6/uL (4.5-5.90); Red Cell Distribution Width 16.2 % (11.8-14.3); White Blood Cell 9.7 10^3/uL (4.4-10.8)
[2019-12-16 06:38] LABS: Potassium 4.3 mmol/L (3.5-5.1)
[2019-12-16 06:40] LABS: BUN/Creatinine Ratio 14.7
--- NOTE | 2019-12-16 07:15 | NUR ---
Opening Shift Note Assumed care of patient, resting in bed with eyes closed. No S/S of distress/SOB or pain. Will continue to monitor for changes Q1hr and PRN. Bed is set in lowest locked position with side rails up x 2 for safety and call light is within reach.
[2019-12-16 08:00] VITALS: BP 148/75
--- NOTE | 2019-12-16 08:04 | NUR ---
Pagekalpana Acevedo in regards to patient's diet Awaiting call back.
[2019-12-16 09:00] VITALS: BP 148/75
[2019-12-16] MEDS: CITALOPRAM HYDROBR 20 MG TAB PO SCH (09:22)
[2019-12-16] MEDS: PANTOPRAZOLE 40 MG/10 ML VIAL INJ IV SCH ×2 (09:22→21:31)
[2019-12-16] MEDS: FERROUS SULFATE 325 MG TAB PO SCH ×4 (09:22→17:33)
--- NOTE | 2019-12-16 11:25 | NUR ---
Consents obtained and placed in patient's hard chart
[2019-12-16 13:00] VITALS: BP 137/55
[2019-12-16 16:39] VITALS: BP 154/71
--- NOTE | 2019-12-16 17:30 | NUR ---
Wound care performed per orders Patient tolerated well. Will continue to monitor site.
[2019-12-16 21:30] VITALS: BP 156/70
[2019-12-16] MEDS: TERAZOSIN HCL 5 MG CAP PO SCH (21:32)
[2019-12-16] MEDS: ATORVASTATIN 20 MG TAB PO SCH (21:32)
[2019-12-17] MEDS: SODIUM CHLORIDE 0.9% 1,000 ML IV SCH ×3 (00:42→20:42)
--- NOTE | 2019-12-17 04:34 | NUR ---
PATIENT WAS COMPLAINING THAT IV SITE FELT WET. UPON INSPECTION THE IV WAS STILL INSERTED BUT PART OF CATHETER WAS HANGING OUT. I INSERTED CATHETER FULLY AND REDRESSED THE IV SITE. IV SITE FLUSHED WELL WITH NO PAIN OR DISCOMFORT NOTED.
[2019-12-17 05:00] VITALS: BP 154/64
[2019-12-17] MEDS: SUCRALFATE 1 GM/10 ML ORAL SUSP PO SCH ×4 (05:36→21:43)
[2019-12-17] MEDS: PIPERACILLIN-TAZOB 2.25GM 50 ML IV SCH (05:38)
[2019-12-17 05:43] LABS: Basophils # (auto) 0.1 10 ^3/uL (0-0.2); Basophils % (auto) 0.8 % (0.0-2.0); Eosinophils # (auto) 0.2 10 ^3/uL (0-0.8); Eosinophils % (auto) 2.6 % (0.0-7.0); Hemoglobin 8.5 g/dL (13.5-17.5); Lymphocytes % (auto) 12.2 % (10.0-50.0); Mean Corpuscular Hemoglobin 28.7 pg (28.0-32.0); Mean Corpuscular Hgb Conc. 32.8 g/dL (32.0-36.0); Mean Corpuscular Volume 87.4 fL (80.0-100.0); Monocytes # (auto) 0.7 10 ^3/uL (0-1.3); Monocytes % (auto) 8.5 % (0.0-12.0); Neutrophils # (auto) 6.2 10 ^3/uL (1.6-8.6); Neutrophils % (auto) 75.9 % (37.0-80.0); Nucleated Red Blood Cells % 0.1 %; Platelet Count (auto) 315 10^3/uL (140-450); Red Blood Cells 2.97 10^6/uL (4.5-5.90); Red Cell Distribution Width 15.8 % (11.8-14.3); White Blood Cell 8.2 10^3/uL (4.4-10.8)
[2019-12-17 06:00] LABS: INR 1.07 (0.9-1.15); Partial Thromboplastin Time 29.5 sec (23.64-32.05)
[2019-12-17 06:03] LABS: Potassium 4.1 mmol/L (3.5-5.1)
[2019-12-17 06:08] LABS: BUN/Creatinine Ratio 14.2; Calcium 7.9 mg/dL (8.5-10.1)
[2019-12-17] MEDS: InsuLIN REG 1unit/0.01ml Soln (100units/ml) SC SCH ×4 (06:46→21:45)
[2019-12-17] MEDS: ACCU-CHEK COMFORT CURVE STRIP VI SCH ×4 (06:46→21:44)
--- NOTE | 2019-12-17 07:30 | NUR ---
Opening Shift Note Assumed care of patient, awake and alert. No S/S of distress/SOB or pain. Instructed on POC and to call for assist PRN, will continue to monitor for changes Q1hr and PRN.
[2019-12-17] MEDS: FERROUS SULFATE 325 MG TAB PO SCH ×4 (08:00→18:00)
[2019-12-17 08:29] VITALS: BP 142/59
[2019-12-17] MEDS: CITALOPRAM HYDROBR 20 MG TAB PO SCH (10:00)
[2019-12-17] MEDS: LINEZOLID 600MG/300ML 300 ML IV SCH ×2 (10:00→21:43)
[2019-12-17] MEDS: PANTOPRAZOLE 40 MG/10 ML VIAL INJ IV SCH ×2 (10:00→21:43)
--- NOTE | 2019-12-17 12:23 | NUR ---
Assessment Patient is a 74-year-old male who is alert and oriented. Prior to admission patient lived with family and functioned independently. Patient can care for his own ADLs. Patient informed me he does not have any medical equipment and does not need any now. Per patient he will return to his prior living arrangements post discharge and family will transport patient home. Advised patient there is a Social Service consult for home health wound care. Per patient he has been receiving wound care and physical therapy as an outpatient at [facility] three times a week address: [facility] [place] . [address] [place] [phone] and would like to continue going to facility as an outpatient. Informed patient I will notify provider. Informed patient he has the right to participate in all discharge planning. Patient verbalized understanding and agreed to discharge plan home. Addendum: 12/17/19 at 1223 by BRENDAN BUSCH SS Amended: Links added.
[2019-12-17 12:30] VITALS: BP 147/91
[2019-12-17] MEDS ORDERED: ceFAZolin 1GM VL ONE (13:06)
[2019-12-17] MEDS ORDERED: LIDOCAINE 1% (LOCAL ANESTH.) PF 5ml SDV ONE (13:15)
[2019-12-17] MEDS ORDERED: PROPOFOL 10 MG/ML 20 ML IV ONE (13:15)
[2019-12-17] MEDS ORDERED: MIDAZOLAM HCL 1MG/1ML-2 ML VIAL ONE (13:15)
[2019-12-17] MEDS ORDERED: diphenhdrAMINE HCL 50 MG/1 ML VL ONE (13:17)
[2019-12-17] MEDS ORDERED: METOCLOPRAMIDE HCL 5MG/ml INJ 2ml VIAL ONE (13:17)
[2019-12-17] MEDS ORDERED: GLYCOPYRROLATE 0.2 MG/ML 1ML VIAL ONE (13:17)
[2019-12-17] MEDS ORDERED: NALOXONE HCL 0.4 MG/ML VIAL IV PRN (13:30)
[2019-12-17] MEDS ORDERED: ONDANSETRON HCL 4 MG/2 ML VIAL IV PRN (13:30)
[2019-12-17] MEDS ORDERED: hydrALAZINE HCL 20 MG/ML VL IV PRN (13:30)
[2019-12-17] MEDS ORDERED: ACCU-CHEK COMFORT CURVE STRIP VI ONE (13:30)
[2019-12-17] MEDS ORDERED: HYDROmorphone HCL 2 MG/ML VL IV PRN ×2 (13:30)
--- NOTE | 2019-12-17 14:24 | NUR ---
Nutrition Followup Notes WT: 84.7 kg Pt was off the floor when rounded this am. per RN pt in sx for abdominal wound. pt is currently NPO for procedure Est Energy needs: [address] kcals (20-23 kcal/kgBW), Est Protein needs: 66-74 gms/day (0.8-0.9 gm/kgBW) d/t GFR (Stg 4). Will continue to monitor and reassess prn. LABS: GLU 123 H, CA 7.9 L, BUN 37 H, CREAT 2.6 H GI: Pt had 1 BM today per RN doc. BS: 21 low risk. Please refer to wound assessment report for full details. PES: Altered nutrition related lab values r.t current chronic medical condition aeb hyperchloremia, elev RFTs, hyperglycemia, hypocalcemia Rec: 1) resume diet as medically feiasble.. 2) Consider a daily MVI with 500 mg Vit C BID 30 Continue current plan of care. 4) F/u high 2-3 days
--- NOTE | 2019-12-17 16:32 | NUR ---
WOUND CARE NOTE: Wound care in to see patient per Dr. Burrows's order to apply wound vac to patient's abdominal wound. Patient is resting in bed in Rm. 216B. Patient is awake, alert and oriented. He's denies any pain at this time. Patient is s/p Debridement of Abdominal wall panniculitis by Dr. Burrows. Patient's nurse, SERGEY Reynoso at bedside assisted with abdominal wound dressing. Removed patient's abdominal wound dressing. Patient's Lt abdominal wound measuring 1.5x5.5x1cm and to his Rt abdomen, wound measuring [id number]. Wound bed is red with yellow adipose tissue. Livia wound is pink, moderate amount of sanguinous drainage noted. SERGEY Reynoso is applying sterile NS moistened gauze and abd pad for pressure dressing . Unable to apply Ulta vac effectively as wound has moderate sanguinous drainage, unable to maintain seal even after trouble shooting. About 50mL sanguinous drainage noted in canister within 30 minute period since wound vac started and also leaking at side, unable to maintain seal. Removed wound vacc dressing. Cleansed wounds wit NS, packed wound cavity with one piece Betadine moistened sterile gauze roll, covered with two large abd pad, secured with foam tape, applied abdominal binder. Patient tolerated well. SERGEY Reynoso at bedside.
--- NOTE | 2019-12-17 16:40 | NUR ---
CALL: Call Dr. Burrows, no answer, message left and call back number given. Addendum: 12/17/19 at 1709 by Kristy Correa RN [phone] Burrows again. made aware the attempt to apply wound vac and failure to maintain seal, inform of bleeding and intervention as ordered. Per , "try again tomorrow". MD also order to place social service consult for home wound vac and abdominal wound vac dressing change Q 3 days while patient is in hospital. Order noted and carried out.
[2019-12-17 17:00] VITALS: BP 87/36
--- NOTE | 2019-12-17 17:23 | NUR ---
HOME WOUND VAC REQUEST FORM: Paper works for home wound vac request filled up and placed in chart for MD's signature
[2019-12-17 18:52] LABS: Hemoglobin 7.9 g/dL (13.5-17.5)
[2019-12-17] MEDS: TERAZOSIN HCL 5 MG CAP PO SCH (21:43)
[2019-12-17 22:00] VITALS: BP 133/95
[2019-12-17] MEDS: ATORVASTATIN 20 MG TAB PO SCH (22:06)
--- NOTE | 2019-12-18 00:15 | NUR ---
IV removal IV DC'd with sterile technique, catheter fully intact. Pressure dressing applied to site. Patient tolerated procedure well.
--- NOTE | 2019-12-18 00:20 | NUR ---
IV insertion IV access obtained, via clean sterile technique by inserting 20 gauge catheter at left wrist after 1 attempt. IV secured properly. No trauma to site. Patient tolerated procedure well.
[2019-12-18] MEDS: SODIUM CHLORIDE 0.9% 1,000 ML IV SCH (00:46)
[2019-12-18 05:00] VITALS: BP 132/74
[2019-12-18] MEDS: SUCRALFATE 1 GM/10 ML ORAL SUSP PO SCH ×2 (06:43→11:21)
[2019-12-18] MEDS: InsuLIN REG 1unit/0.01ml Soln (100units/ml) SC SCH ×2 (06:43→11:30)
[2019-12-18] MEDS: ACCU-CHEK COMFORT CURVE STRIP VI SCH ×2 (06:43→11:30)
[2019-12-18] MEDS ORDERED: SODIUM CHLORIDE 0.9% 1,000 ML IV SCH (08:15)
[2019-12-18] MEDS: FERROUS SULFATE 325 MG TAB PO SCH (08:44)
--- NOTE | 2019-12-18 08:58 | NUR ---
WOUND CARE NOTE: Wound care in to see patient. Patient is resting in bed in Rm. 216B. Patient is awake, alert and oriented. He's denies any pain at this time. Patient's abdominal dressing is intact. Patient reported "I did well during the night" no sign of active bleeding. "My BP is fine" Patient informed of Dr. Burrows's order to try applying wound vac again. Reeducated patient with NPWT. Patient address concerns and "inconvenience of having machine attached to me". Informed patient of benefits and other's concerns, trouble shooting and resources available for help in trouble shooting. Patient verbalized understanding but states he still prefers the traditional dressing changes of packing the wounds. SERGEY mccoy made aware of conversation and patient's concern, will inform MD.
[2019-12-18 09:00] VITALS: BP 146/61
[2019-12-18 09:31] LABS: BUN/Creatinine Ratio 13.3; Calcium 7.8 mg/dL (8.5-10.1); Potassium 4.1 mmol/L (3.5-5.1)
[2019-12-18] MEDS: PANTOPRAZOLE 40 MG/10 ML VIAL INJ IV SCH (09:50)
[2019-12-18] MEDS: CITALOPRAM HYDROBR 20 MG TAB PO SCH (09:51)
[2019-12-18] MEDS: LINEZOLID 600MG/300ML 300 ML IV SCH (10:10)
--- NOTE | 2019-12-18 10:12 | NUR ---
MD CALL: Called Dr. Burrows at [phone], No answer, left message and return number given. Called [facility].R. Spoke with Dr Cam Hobbs in OR having procedure, will follow up later. Addendum: 12/18/19 at 1106 by Kristy Correa RN [phone] Received call back from Dr. Burrows, made aware of patient's refusal of wound vac application. Per Dr. Burrows's he has no other wound care recommendation but wound vac, he states "He doesn't like it, have him sign AMA for wound vac". SEREGY Patterson made aware of telephone conversation with Dr. Burrows.
[2019-12-18 13:00] VITALS: BP 154/73
--- NOTE | 2019-12-18 14:48 | NUR ---
INFORMED PT THAT HIS PRIMARY PHYSICIAN WILL NEED TO REFER HIM TO THE GI CLINIC SO HE CAN FOLLOW-UP WITH DR Luisana ALMEIDA, PER DR Javier ALMEIDA'S LAST MODEL MAKER.
[2019-12-18 17:00] VITALS: BP 141/56
--- NOTE | 2019-12-18 17:00 | NUR ---
AMA FOR WOUND VAC REFUSAL SIGNED.
--- NOTE | 2019-12-18 17:30 | NUR ---
ABDOMINAL DRESSING PRESSURE DRESSING IN PLACE. NO BLEEDING NOTED. DRESSING CLEAN, DRY AND INTACT. PT VERBALIZED THAT DRESSING FEELS COMFORTABLE AND SECURE.
[2019-12-18] MEDS ORDERED: LINEZOLID 600MG TABLET PO SCH (22:00)
== END 2019-12-18 17:30 | disposition left against medical advice (07) | DRG 853 ==
LOC: TELE-CENTR 20:15 → CENTRAL 12-13 11:38
PROVIDERS: ADMIT Internal Medicine; ATTEND Family Medicine
PROC: 0DB88ZX Excision of Small Intestine, Via Natural or Artificial Opening Endoscopic, Diagnostic (ICD-10-PCS; 2019-12-15)
PROC: 0DB68ZX Excision of Stomach, Via Natural or Artificial Opening Endoscopic, Diagnostic (ICD-10-PCS; principal; 2019-12-15 11:27)
PROC: 0JB80ZZ Excision of Abdomen Subcutaneous Tissue and Fascia, Open Approach (ICD-10-PCS; 2019-12-17)
DX: A41.9 Sepsis, unspecified organism (principal); K25.4 Chronic or unspecified gastric ulcer with hemorrhage; K26.4 Chronic or unspecified duodenal ulcer with hemorrhage; N17.9 Acute kidney failure, unspecified; L03.311 Cellulitis of abdominal wall; N18.4 Chronic kidney disease, stage 4 (severe); D50.0 Iron deficiency anemia secondary to blood loss (chronic); E11.22 Type 2 diabetes mellitus with diabetic chronic kidney disease; E78.00 Pure hypercholesterolemia, unspecified; F32.9 Major depressive disorder, single episode, unspecified; I12.9 Hypertensive chronic kidney disease with stage 1 through stage 4 chronic kidney disease, or unspecified chronic kidney disease; K29.70 Gastritis, unspecified, without bleeding; K29.80 Duodenitis without bleeding; K44.9 Diaphragmatic hernia without obstruction or gangrene; F41.9 Anxiety disorder, unspecified; M79.3 Panniculitis, unspecified; D63.8 Anemia in other chronic diseases classified elsewhere; N40.0 Benign prostatic hyperplasia without lower urinary tract symptoms; Z80.1 Family history of malignant neoplasm of trachea, bronchus and lung; Z82.5 Family history of asthma and other chronic lower respiratory diseases; Z79.899 Other long term (current) drug therapy; Z53.29 Procedure and treatment not carried out because of patient's decision for other reasons; E11.51 Type 2 diabetes mellitus with diabetic peripheral angiopathy without gangrene; K21.9 Gastro-esophageal reflux disease without esophagitis; I25.10 Atherosclerotic heart disease of native coronary artery without angina pectoris
CPT/HCPCS: 36415; 43239; 71045; 71250; 74176; 80048; 80061; 80202; 81001; 82270; 82962; 83036; 83615; 85014; 85018; 85025; 85045; 85610; 85730; 86850; 86880; 86900; 86901; 87077; 87081; 87186; 87205; C9113; G0378; J0690; J1815; J2250; J2543; J2704; J3490; J7060

== ENCOUNTER → 2019-12-29 | Outpatient (CLI) | payer BC ==
[2019-12-29 10:24] LABS: Basophils # (auto) 0.1 10 ^3/uL (0-0.2); Eosinophils # (auto) 0.1 10 ^3/uL (0-0.8); Lymphocytes # (auto) 0.9 10 ^3/uL (0.4-5.4); Neutrophils # (auto) 6.5 10 ^3/uL (1.6-8.6)
[2019-12-29 10:26] LABS: Basophils % (auto) 0.9 % (0.0-2.0); Eosinophils % (auto) 1.5 % (0.0-7.0); Hemoglobin 7.4 g/dL (13.5-17.5); Mean Corpuscular Hemoglobin 30.1 pg (28.0-32.0); Mean Corpuscular Hgb Conc. 33.8 g/dL (32.0-36.0); Monocytes # (auto) 0.4 10 ^3/uL (0-1.3); Monocytes % (auto) 5.3 % (0.0-12.0); Neutrophils % (auto) 81.3 % (37.0-80.0); Platelet Count (auto) 355 10^3/uL (140-450); Red Blood Cells 2.47 10^6/uL (4.5-5.90)
[2019-12-29 10:51] LABS: BUN/Creatinine Ratio 16.3; Calcium 8.2 mg/dL (8.5-10.1); Potassium 4.4 mmol/L (3.5-5.1)
== END | disposition home or self-care (01) ==
LOC: LAB 09:54
PROVIDERS: ATTEND Internal Medicine Gastroenterology
DX: D64.9 Anemia, unspecified (principal); K26.3 Acute duodenal ulcer without hemorrhage or perforation
CPT/HCPCS: 36415; 80048; 82784; 83516; 85025; 86255

== ENCOUNTER 2020-01-08 12:41 | Inpatient (IN) | payer BC ==
[~2020-01-08] VITALS: Ht 167.6 cm; Wt 38.4 kg
[2020-01-08 13:20] LABS: Eosinophils # (auto) 0.1 10 ^3/uL (0-0.8); Eosinophils % (auto) 1.3 % (0.0-7.0); Neutrophils # (auto) 6.3 10 ^3/uL (1.6-8.6); White Blood Cell 7.9 10^3/uL (4.4-10.8)
[2020-01-08 13:22] LABS: Basophils # (auto) 0.1 10 ^3/uL (0-0.2); Basophils % (auto) 0.7 % (0.0-2.0); Hematocrit 19.7 % (41.0-53.0); Lymphocytes % (auto) 12.6 % (10.0-50.0); Mean Corpuscular Hemoglobin 28.3 pg (28.0-32.0); Mean Corpuscular Hgb Conc. 32.1 g/dL (32.0-36.0); Monocytes # (auto) 0.4 10 ^3/uL (0-1.3); Monocytes % (auto) 5.4 % (0.0-12.0); Platelet Count (auto) 168 10^3/uL (140-450); Red Blood Cells 2.24 10^6/uL (4.5-5.90); Red Cell Distribution Width 15.8 % (11.8-14.3)
[2020-01-08 13:29] LABS: Hemoglobin 6.3 g/dL (13.5-17.5)
[2020-01-08 13:38] LABS: Alanine Aminotransferase 25 U/L (16-61); Albumin 2.6 g/dL (3.4-5.0); Anion Gap 7 (5-15); Aspartate Aminotransferase 14 U/L (15-37); BUN/Creatinine Ratio 19.4; Blood Urea Nitrogen 62 mg/dL (7-18); Calcium 7.8 mg/dL (8.5-10.1); Carbon Dioxide 19 mmol/L (21-32); Chloride 113 mmol/L (98-107); GFR African American 25 mL/min; GFR Non-African American 20 mL/min; Glucose 77 mg/dL (74-106); Magnesium 2.2 mg/dL (1.6-2.6); Potassium 4.3 mmol/L (3.5-5.1); Sodium 139 mmol/L (136-145)
[2020-01-08 13:44] LABS: Alkaline Phosphatase 86 U/L (45-117); Bilirubin, Total 0.2 mg/dL (0.2-1.0)
[2020-01-08] MEDS ORDERED: SODIUM CHLORIDE 0.9% 500 ML IV ONE (13:59)
[2020-01-08] MEDS: SODIUM CHLORIDE 0.9% 1,000 ML IV SCH ×2 (14:26→22:28)
[2020-01-08] MEDS ORDERED: NITROGLYCERIN 0.4 MG SL TAB SL PRN (14:30)
[2020-01-08] MEDS ORDERED: DEXTROSE (50%) 50ML SYRG IV PRN (14:30)
[2020-01-08] MEDS ORDERED: traMADol HCL 50 MG TAB PO PRN ×2 (14:30→15:00)
[2020-01-08] MEDS ORDERED: MORPHINE SULF INJ 2 MG/ML SYRINGE 1ML IV PRN (14:30)
[2020-01-08] MEDS ORDERED: TEMAZEPAM 15 MG CAP PO PRN (14:30)
[2020-01-08] MEDS ORDERED: PROMETHAZINE HCL 25 MG/ML 1ML IV PRN (14:30)
[2020-01-08] MEDS ORDERED: PANTOPRAZOLE 40 MG/10 ML VIAL INJ IV ONE (14:30)
[2020-01-08 15:30] LABS: INR 1.02 (0.9-1.15); Partial Thromboplastin Time 34.8 sec (23.64-32.05)
[2020-01-08] MEDS: ACETAMINOPHEN 500 MG TAB PO PRN ×2 (16:08→22:38)
[2020-01-08 16:45] VITALS: BP 164/64
[2020-01-08 17:00] VITALS: BP 148/65
[2020-01-08] MEDS: InsuLIN REG 1unit/0.01ml Soln (100units/ml) SC SCH ×2 (17:00→22:00)
[2020-01-08] MEDS: ACCU-CHEK COMFORT CURVE STRIP VI SCH ×2 (17:00→22:28)
[2020-01-08 18:05] VITALS: BP 160/77
--- NOTE | 2020-01-08 18:05 | NUR ---
Telemetry admit from ER KING DAVIS admitted to Telemetry unit after SBAR received. Patient oriented to Monica De La Rosa, primary RN, unit, room, bed, and unit policies regarding patient care and visiting hours. Patient now on continuous telemetry monitoring, tele box # 22 and telemetry reading on arrival to unit is . Patient placed on bedside oxygen, weighed by bedscale and encouraged to call if they need something. All questions and concerns addressed, patient verbalized understanding. Note:
--- NOTE | 2020-01-08 18:10 | NUR ---
ASSESSMENT NOTE PT IS ALERT ORIENTED X4, ARRIVED FROM ER VIA GURNEY TO ROOM 250A, BLOOD TRANSFUSION CONTINUE INFUSING, NO SHORTNESS OF BREATH NOTED, PAIN 0/10, WAS ABLE TO AMBULATE TO HIS BED, AND GET IN, SKIN IS WARM TO TOUCH, NO DEFICIT NOTED, OXYGEN 2 L NC, PT HAS LARGE WOUND AT THE LOWER PART OF THE ABDOMEN AREA, WOUND BED IS PINK, NO FOUL ODOR NOTED, NO SIGNS OR SYMPTOMS OF INFECTION NOTED, ROOM ORIENTATION GIVEN TO PT, CALL LIGHT WITHIN REACH
[2020-01-08 18:15] VITALS: BP 160/77
--- NOTE | 2020-01-08 18:30 | NUR ---
PT IS EATING CLEAR LIQUID DIET, BLOOD SUGAR IS 45, REPEATED AGAIN WAS 65, PT CONTINUE STABLE, NO DISTRESS NOTED
--- NOTE | 2020-01-08 19:05 | NUR ---
PT TOLERATED BLOOD TRANSFUSION WELL, NO REACTION NOTED, VS ARE STABLE
[2020-01-08 19:10] VITALS: BP 152/74
--- NOTE | 2020-01-08 19:30 | NUR ---
REPORT GIVEN TO KISHORE RINCON, CONTINUE CARE
--- NOTE | 2020-01-08 19:50 | NUR ---
Opening Shift Note Assumed care of patient, awake and alert. No S/S of distress/SOB or pain. Instructed on POC and to call for assist PRN, will continue to monitor for changes. Patient in semi fowlers position, bed in lowest locked position, bed rails up x2, call light within reach. All questions and concerns answered, patient verbalized understanding.
[2020-01-08 21:30] VITALS: BP 166/70
[2020-01-08 22:17] LABS: Hematocrit 21.4 % (41.0-53.0)
[2020-01-08 22:20] LABS: Hemoglobin 7.6 g/dL (13.5-17.5)
[2020-01-08] MEDS: PANTOPRAZOLE 40 MG TAB PO SCH (22:27)
[2020-01-08] MEDS: SUCRALFATE 1 GM/10 ML ORAL SUSP PO SCH (22:27)
[2020-01-09 01:12] LABS: Hematocrit 21.5 % (41.0-53.0)
--- NOTE | 2020-01-09 02:01 | NUR ---
Received critical lab Hgb 7.0, hospitalist paged regarding lab.
--- NOTE | 2020-01-09 02:26 | NUR ---
Hospitalist returned page. Hospitalist was made aware of hbg 7.0. No new orders received, states to wait for 0600 H&H draw.
[2020-01-09 04:30] VITALS: BP 155/75
[2020-01-09] MEDS: ACETAMINOPHEN 500 MG TAB PO PRN ×3 (05:55→21:52)
[2020-01-09] MEDS: ACCU-CHEK COMFORT CURVE STRIP VI SCH ×4 (06:11→21:51)
[2020-01-09] MEDS: InsuLIN REG 1unit/0.01ml Soln (100units/ml) SC SCH ×4 (06:11→21:54)
[2020-01-09] MEDS: SUCRALFATE 1 GM/10 ML ORAL SUSP PO SCH ×4 (06:24→21:51)
[2020-01-09] MEDS: SODIUM CHLORIDE 0.9% 1,000 ML IV SCH ×3 (06:25→23:18)
[2020-01-09 06:35] LABS: Hematocrit 23.5 % (41.0-53.0); Hemoglobin 7.6 g/dL (13.5-17.5)
--- NOTE | 2020-01-09 07:00 | NUR ---
Opening Shift Note Received report on the patient. Awake laying in bed. Patient shows no signs of distress at this time. Discussed plan of care with the patient. Bed in lowest position, side rails up x2, and the call light is within reach.
[2020-01-09 09:00] VITALS: BP 159/68
--- NOTE | 2020-01-09 11:15 | NUR ---
WOUND CARE NOTE: IN TO SEE PATIENT AT THIS TIME PER WOUND CARE CONSULT REQUEST. PATIENT RECENTLY ADMITTED TO [facility] WITH DIAGNOSIS OF SEVERE ANEMIA. PATIENT HAS CURRENT GIGI SCORE OF 21. PATIENT IS FULLY AMBULATORY. HE STATES THAT HE UNDERWENT AN EXCISIONAL DEBRIDEMENT OF ABDOMINAL ABSCESS APPROXIMATELY [address] FITCH. HE HAS BEEN RECEIVING HOME HEALTHCARE FOR DRESSING CHANGE. WOUND IS CLEAN, WITH RED GRANULATION NOTED IN 100 PERCENT OF THE WOUND BED. THERE IS A LIGHT GREEN DRAINAGE NOTED ON DRESSING, WITH NO ODOR DETECTED. WOUND CULTURE TAKEN AT THIS TIME UTILIZING FALL TECHNIQUE, SENT OFF TO LAB FOR PROCESSING. CLEANSED WOUND WITH WOUND CLEANSER, PATTED DRY WITH STERILE GAUZE. APPLIED THERAHONEY GAUZE. COVERED WITH ABD PAD, MEDIPORE TAPE. PATIENT TOLERATED DRESSING CHANGE WELL, NOTING NO PAIN BY PATIENT. RECOMMEND: DAILY DRESSING CHANGE PER MD ORDER, DIETARY CONSULT, SKIN/WOUND CARE PLAN FOR WOUND, CONTINUED MONITORING BY WOUND CARE TEAM. Addendum: 01/09/20 at 1519 by Gissel Owusu RN Amended: Links added.
[2020-01-09] MEDS: PANTOPRAZOLE 40 MG TAB PO SCH ×2 (11:31→21:51)
[2020-01-09 13:00] VITALS: BP 161/68
[2020-01-09] MEDS ORDERED: HCTZ 25 MG TAB PO ONE (13:15)
--- NOTE | 2020-01-09 16:38 | NUR ---
Paged Dr. Huffman regarding the patient's blood pressure of 166/79. New orders received.
[2020-01-09 17:00] VITALS: BP 166/79
[2020-01-09] MEDS: cloNIDine HCL 0.1 MG TAB PO PRN (17:00)
--- NOTE | 2020-01-09 19:12 | NUR ---
Closing Shift Note Endorsed care to RN Stephen. Patient shows no signs of distress at this time.
[2020-01-09] MEDS: HCTZ 25 MG TAB PO SCH (21:53)
[2020-01-09 22:00] VITALS: BP 148/68
--- NOTE | 2020-01-09 22:00 | NUR ---
Patient stated he wants to receive Tylenol for headache pain 5/10.
[2020-01-10] VITALS (8 sets, daily range): BP systolic 132–193; BP diastolic 65–83
[2020-01-10] MEDS: ACETAMINOPHEN 500 MG TAB PO PRN (06:02)
[2020-01-10 06:03] LABS: Basophils # (auto) 0 10 ^3/uL (0-0.2); Basophils % (auto) 0.4 % (0.0-2.0); Eosinophils # (auto) 0.2 10 ^3/uL (0-0.8); Hemoglobin 7.5 g/dL (13.5-17.5); Lymphocytes # (auto) 0.8 10 ^3/uL (0.4-5.4); Monocytes # (auto) 0.6 10 ^3/uL (0-1.3); White Blood Cell 8.4 10^3/uL (4.4-10.8)
[2020-01-10 06:05] LABS: Eosinophils % (auto) 2.2 % (0.0-7.0); Hematocrit 22.6 % (41.0-53.0); Lymphocytes % (auto) 9.9 % (10.0-50.0); Mean Corpuscular Hemoglobin 29.4 pg (28.0-32.0); Mean Corpuscular Hgb Conc. 33.2 g/dL (32.0-36.0); Mean Corpuscular Volume 88.5 fL (80.0-100.0); Monocytes % (auto) 7.2 % (0.0-12.0); Neutrophils # (auto) 6.8 10 ^3/uL (1.6-8.6); Neutrophils % (auto) 80.3 % (37.0-80.0); Platelet Count (auto) 149 10^3/uL (140-450); Red Blood Cells 2.55 10^6/uL (4.5-5.90); Red Cell Distribution Width 15.3 % (11.8-14.3)
[2020-01-10] MEDS: SUCRALFATE 1 GM/10 ML ORAL SUSP PO SCH ×3 (06:05→17:41)
[2020-01-10] MEDS: ACCU-CHEK COMFORT CURVE STRIP VI SCH ×3 (06:06→17:41)
[2020-01-10] MEDS: InsuLIN REG 1unit/0.01ml Soln (100units/ml) SC SCH ×3 (06:06→17:00)
[2020-01-10] MEDS: SODIUM CHLORIDE 0.9% 1,000 ML IV SCH ×2 (06:06→14:26)
--- NOTE | 2020-01-10 07:30 | NUR ---
Opening Shift Note Assumed care of patient, awake and alert. No S/S of distress/SOB or pain. Instructed on POC and to call for assist PRN, will continue to monitor for changes Q1hr and PRN.
[2020-01-10] MEDS ORDERED: HCTZ 25 MG TAB PO SCH (10:00)
[2020-01-10] MEDS: PANTOPRAZOLE 40 MG TAB PO SCH (10:03)
[2020-01-10] MEDS: HCTZ 25 MG TAB PO SCH (10:03)
--- NOTE | 2020-01-10 11:28 | NUR ---
Blood Transfusion begin. starting rate is at 50ml/hr baseline vital signs at 98.5 temp, 67 hr, 16 rr, 152/83 patient is resting comfortably and not experiencing any distress.
--- NOTE | 2020-01-10 11:43 | NUR ---
15min Post Blood transfusion start. Patient is tolerating transfusion well. no signs of any reactions. vital signs within baseline. will continue to monitor blood transfusion.
[2020-01-10] MEDS: cloNIDine HCL 0.1 MG TAB PO PRN (13:46)
--- NOTE | 2020-01-10 15:14 | NUR ---
Blood Transfusion end. patient tolerated transfusion without complication. no signs of transfusion reactions. vital signs within baseline.
[2020-01-10] MEDS ORDERED: traMADol HCL 50 MG TAB PO PRN (15:30)
[2020-01-10 16:59] LABS: Basophils # (auto) 0 10 ^3/uL (0-0.2); Basophils % (auto) 0.5 % (0.0-2.0); Eosinophils # (auto) 0.2 10 ^3/uL (0-0.8); Hematocrit 27.4 % (41.0-53.0); Hemoglobin 9.1 g/dL (13.5-17.5); Lymphocytes # (auto) 0.7 10 ^3/uL (0.4-5.4); Lymphocytes % (auto) 7.5 % (10.0-50.0); Mean Corpuscular Hemoglobin 29.4 pg (28.0-32.0); Mean Corpuscular Hgb Conc. 33.3 g/dL (32.0-36.0); Mean Corpuscular Volume 88.1 fL (80.0-100.0); Monocytes # (auto) 0.7 10 ^3/uL (0-1.3); Monocytes % (auto) 7.7 % (0.0-12.0); Neutrophils % (auto) 82.3 % (37.0-80.0); Platelet Count (auto) 163 10^3/uL (140-450); Red Blood Cells 3.11 10^6/uL (4.5-5.90); Red Cell Distribution Width 15.3 % (11.8-14.3); White Blood Cell 9.7 10^3/uL (4.4-10.8)
--- NOTE | 2020-01-10 17:50 | NUR ---
Discharge instructions given as ordered. Encourage to follow up with PMD as instructed. All questions and concerns addressed. Patient verbalized understanding. IV removed with catheter intact, pressure dressing applied and wound photos taken. Telemetry unit returned to ICU. Patient ambulated to vehicle via with all personal belongings. No distress noted at time of departure.
== END 2020-01-10 17:50 | disposition home or self-care (01) | DRG 811 ==
LOC: ER 12:41 → TELE 12:42 → TELE-EAST 18:14
PROVIDERS: ADMIT Internal Medicine; ATTEND Family Medicine
PROC: 30230N1 Transfusion of Nonautologous Red Blood Cells into Peripheral Vein, Open Approach (ICD-10-PCS; principal; 2020-01-08)
DX: D64.9 Anemia, unspecified (principal); N18.6 End stage renal disease; I12.0 Hypertensive chronic kidney disease with stage 5 chronic kidney disease or end stage renal disease; K57.90 Diverticulosis of intestine, part unspecified, without perforation or abscess without bleeding; E79.0 Hyperuricemia without signs of inflammatory arthritis and tophaceous disease; E11.22 Type 2 diabetes mellitus with diabetic chronic kidney disease; E78.00 Pure hypercholesterolemia, unspecified; F32.9 Major depressive disorder, single episode, unspecified; N40.0 Benign prostatic hyperplasia without lower urinary tract symptoms; Z87.11 Personal history of peptic ulcer disease
CPT/HCPCS: 36415; 80053; 82378; 82565; 82962; 83036; 83735; 84484; 85014; 85018; 85025; 85045; 85610; 85652; 85730; 86141; 86850; 86900; 86901; 86920; 87077; 87081; 87186; 87205; 93005; C9113; G0378

== ENCOUNTER → 2020-01-08 | Outpatient (CLI) | payer BC ==
[2020-01-08 10:22] LABS: Basophils # (auto) 0 10 ^3/uL (0-0.2); Eosinophils # (auto) 0.1 10 ^3/uL (0-0.8); Monocytes # (auto) 0.4 10 ^3/uL (0-1.3); Platelet Count (auto) 156 10^3/uL (140-450); Red Blood Cells 2.22 10^6/uL (4.5-5.90)
[2020-01-08 10:23] LABS: Basophils % (auto) 0.6 % (0.0-2.0); Eosinophils % (auto) 1.1 % (0.0-7.0); Hematocrit 19.7 % (41.0-53.0); Lymphocytes # (auto) 0.8 10 ^3/uL (0.4-5.4); Lymphocytes % (auto) 9.2 % (10.0-50.0); Mean Corpuscular Hemoglobin 28.7 pg (28.0-32.0); Mean Corpuscular Hgb Conc. 32.3 g/dL (32.0-36.0); Mean Corpuscular Volume 88.8 fL (80.0-100.0); Monocytes % (auto) 4.7 % (0.0-12.0); Neutrophils # (auto) 7.1 10 ^3/uL (1.6-8.6); Neutrophils % (auto) 84.4 % (37.0-80.0); Red Cell Distribution Width 16.2 % (11.8-14.3); White Blood Cell 8.4 10^3/uL (4.4-10.8)
[2020-01-08 10:32] LABS: Hemoglobin 6.4 g/dL (13.5-17.5)
[2020-01-08 11:08] LABS: Albumin 2.5 g/dL (3.4-5.0)
[2020-01-08 11:10] LABS: BUN/Creatinine Ratio 19.3
[2020-01-08 11:15] LABS: Bilirubin, Total 0.1 mg/dL (0.2-1.0); Potassium 4.7 mmol/L (3.5-5.1); Total Protein 6.7 g/dL (6.4-8.2)
== END | disposition home or self-care (01) ==
LOC: LAB 09:54
PROVIDERS: ATTEND Nurse Practitioner
DX: D64.9 Anemia, unspecified (principal)
CPT/HCPCS: 36415; 80053; 85025

== ENCOUNTER → 2020-01-27 | Outpatient (CLI) | payer BC ==
[2020-01-27 10:48] LABS: Hematocrit 27.6 % (41.0-53.0); Hemoglobin 8.6 g/dL (13.5-17.5); Mean Corpuscular Hemoglobin 28.1 pg (28.0-32.0); Mean Corpuscular Hgb Conc. 31.1 g/dL (32.0-36.0); Mean Corpuscular Volume 90.2 fL (80.0-100.0); Platelet Count (auto) 375 10^3/uL (140-450); Red Blood Cells 3.06 10^6/uL (4.5-5.90); White Blood Cell 9.8 10^3/uL (4.4-10.8)
[2020-01-27 10:53] LABS: Basophils % (manual) 0 (0.0-2.0); Blast Cells 0; Eosinophils % (manual) 0 (0-7); Metamyelocytes % 0; Promyelocytes % 0; Reactive Lymphocytes 0
[2020-01-27 11:17] LABS: Band Neutrophils % (manual) 1; Lymphocytes % (manual) 9 (10.0-50.0); Monocytes % (manual) 6 (0-12); Myelocytes % 3
[2020-01-27 13:29] LABS: % Iron Saturation 14.9 % (20-55)
== END | disposition home or self-care (01) ==
LOC: LAB 10:24
PROVIDERS: ATTEND Nurse Practitioner
DX: E11.21 Type 2 diabetes mellitus with diabetic nephropathy (principal); D64.9 Anemia, unspecified
CPT/HCPCS: 36415; 82270; 83540; 83550; 85007; 85027

== ENCOUNTER 2020-02-10 09:39 | Emergency (ER) | payer BC, OTHER ==
[~2020-02-10] VITALS: Ht 167.6 cm; Wt 77.1 kg
[2020-02-10] MEDS ORDERED: SODIUM CHLORIDE 0.9% 1,000 ML IV ONE ×2 (09:49)
[2020-02-10] MEDS ORDERED: FERROUS SULFATE 325 MG TAB PO ONE (10:00)
[2020-02-10 10:09] LABS: Hemoglobin 8.3 g/dL (13.5-17.5); Mean Corpuscular Hemoglobin 28.6 pg (28.0-32.0)
[2020-02-10 10:12] LABS: Hematocrit 26.1 % (41.0-53.0); Mean Corpuscular Hgb Conc. 31.6 g/dL (32.0-36.0); Mean Corpuscular Volume 90.5 fL (80.0-100.0); Platelet Count (auto) 380 10^3/uL (140-450); Red Blood Cells 2.88 10^6/uL (4.5-5.90); Red Cell Distribution Width 17.1 % (11.8-14.3); White Blood Cell 13.1 10^3/uL (4.4-10.8)
[2020-02-10 10:15] LABS: Basophils % (manual) 0 (0.0-2.0); Blast Cells 0; Eosinophils % (manual) 0 (0-7); Metamyelocytes % 0; Myelocytes % 0; Promyelocytes % 0; Reactive Lymphocytes 0
[2020-02-10 10:23] LABS: Chloride 114 mmol/L (98-107); Potassium 4.5 mmol/L (3.5-5.1); Sodium 140 mmol/L (136-145)
[2020-02-10 10:32] LABS: Alanine Aminotransferase 14 U/L (16-61); Albumin 2.3 g/dL (3.4-5.0); Alkaline Phosphatase 87 U/L (45-117); Anion Gap 7 (5-15); Aspartate Aminotransferase 7 U/L (15-37); BUN/Creatinine Ratio 23.5; Bilirubin, Total 0.3 mg/dL (0.2-1.0); Blood Urea Nitrogen 69 mg/dL (7-18); Calcium 8.3 mg/dL (8.5-10.1); Carbon Dioxide 19 mmol/L (21-32); GFR African American 27 mL/min; GFR Non-African American 23 mL/min; Glucose 244 mg/dL (74-106); Magnesium 2.5 mg/dL (1.6-2.6)
[2020-02-10 10:33] LABS: Band Neutrophils % (manual) 1; Lymphocytes % (manual) 4 (10.0-50.0); Monocytes % (manual) 2 (0-12)
[2020-02-10 13:21] VITALS: BP 148/72
== END 2020-02-10 13:30 | disposition home or self-care (01) ==
LOC: EDBD 09:39 → ER 09:39
DX: E86.0 Dehydration (principal); D72.829 Elevated white blood cell count, unspecified; E43 Unspecified severe protein-calorie malnutrition; D64.9 Anemia, unspecified
CPT/HCPCS: 36415; 70450; 71045; 80053; 83735; 84484; 85007; 85027; 96360; 96361; 99285; J7030

== ENCOUNTER → 2020-03-16 | Outpatient (CLI) | payer BC ==
[2020-03-16 14:23] LABS: Eosinophils # (auto) 0.3 10 ^3/uL (0-0.8); Eosinophils % (auto) 2.5 % (0.0-7.0); Hemoglobin 7.8 g/dL (13.5-17.5); Lymphocytes # (auto) 1.7 10 ^3/uL (0.4-5.4); Lymphocytes % (auto) 12.7 % (10.0-50.0)
[2020-03-16 14:25] LABS: Basophils # (auto) 0 10 ^3/uL (0-0.2); Basophils % (auto) 0.3 % (0.0-2.0); Mean Corpuscular Hemoglobin 30.1 pg (28.0-32.0); Mean Corpuscular Hgb Conc. 32.4 g/dL (32.0-36.0); Mean Corpuscular Volume 92.9 fL (80.0-100.0); Monocytes # (auto) 0.8 10 ^3/uL (0-1.3); Monocytes % (auto) 6.1 % (0.0-12.0); Neutrophils # (auto) 10.5 10 ^3/uL (1.6-8.6); Neutrophils % (auto) 78.4 % (37.0-80.0); Platelet Count (auto) 479 10^3/uL (140-450); Red Blood Cells 2.58 10^6/uL (4.5-5.90); Red Cell Distribution Width 17.8 % (11.8-14.3); White Blood Cell 13.4 10^3/uL (4.4-10.8)
[2020-03-16 14:34] LABS: Albumin 2.4 g/dL (3.4-5.0); Calcium 7.9 mg/dL (8.5-10.1); Potassium 4.7 mmol/L (3.5-5.1)
[2020-03-16 14:39] LABS: BUN/Creatinine Ratio 19.2; Bilirubin, Total 0.1 mg/dL (0.2-1.0); Total Protein 6.4 g/dL (6.4-8.2)
== END | disposition home or self-care (01) ==
LOC: LAB 14:05
PROVIDERS: ATTEND Nurse Practitioner
DX: D64.9 Anemia, unspecified (principal)
CPT/HCPCS: 36415; 80053; 85025

== ENCOUNTER 2020-03-24 10:19 | Inpatient (IN) | payer BC ==
[~2020-03-24] VITALS: Ht 167.6 cm; Wt 75.6 kg
[2020-03-24] VITALS (9 sets, daily range): BP systolic 129–166; BP diastolic 57–67
[~2020-03-24 10:19] MED LIST changes: -AMPI500C8 PO; -CANA100T PO; -CITA10TA70 PO; -CYAN100T7 PO; -FERR-7 PO; -LEVO750T8 PO; -LISI-646 PO; -MULT-928 PO; -PANT40TA2 PO; -TAM04C PO
[2020-03-24 10:46] LABS: Basophils # (auto) 0.1 10 ^3/uL (0-0.2); Eosinophils # (auto) 0 10 ^3/uL (0-0.8); Mean Corpuscular Hgb Conc. 31.9 g/dL (32.0-36.0); Monocytes # (auto) 0.3 10 ^3/uL (0-1.3)
[2020-03-24 10:48] LABS: Basophils % (auto) 0.5 % (0.0-2.0); Eosinophils % (auto) 0.2 % (0.0-7.0); Hematocrit 19.8 % (41.0-53.0); Lymphocytes # (auto) 0.9 10 ^3/uL (0.4-5.4); Lymphocytes % (auto) 5.4 % (10.0-50.0); Mean Corpuscular Hemoglobin 30.1 pg (28.0-32.0); Mean Corpuscular Volume 94.5 fL (80.0-100.0); Monocytes % (auto) 1.7 % (0.0-12.0); Neutrophils # (auto) 14.8 10 ^3/uL (1.6-8.6); Neutrophils % (auto) 92.2 % (37.0-80.0); Platelet Count (auto) 433 10^3/uL (140-450); Red Cell Distribution Width 18.2 % (11.8-14.3); White Blood Cell 16.1 10^3/uL (4.4-10.8)
[2020-03-24 10:51] LABS: Hemoglobin 6.3 g/dL (13.5-17.5)
[2020-03-24 11:06] LABS: Albumin 2.5 g/dL (3.4-5.0); Calcium 8.4 mg/dL (8.5-10.1)
[2020-03-24 11:10] LABS: Bilirubin, Total 0.2 mg/dL (0.2-1.0); Total Protein 6.7 g/dL (6.4-8.2)
[2020-03-24 11:46] LABS: Potassium 5.9 mmol/L (3.5-5.1)
[2020-03-24] MEDS ORDERED: InsuLIN REG 1unit/0.01ml Soln (100units/ml) IV ONE ×3 (13:30→14:30)
[2020-03-24] MEDS ORDERED: SODIUM CHLORIDE 0.9% 1,000 ML IV SCH (14:18)
[2020-03-24] MEDS ORDERED: HYDROcodone-ACET 5/325MG TAB PO PRN (14:30)
[2020-03-24] MEDS ORDERED: ONDANSETRON HCL 4 MG/2 ML VIAL IV PRN (14:30)
[2020-03-24] MEDS ORDERED: DOCUSATE SOD 100 MG CAP PO PRN (14:30)
[2020-03-24] MEDS ORDERED: ALBUTEROL SULF 2.5 MG/0.5ML(0.5%) NEB SOLN NEB ONE (14:30)
[2020-03-24] MEDS ORDERED: SODIUM ZIRCONIUM CYCL 10 GM PAK PO ONE (14:30)
[2020-03-24] MEDS ORDERED: FUROSEMIDE 100 MG/10ML VIAL IV ONE (14:30)
[2020-03-24] MEDS ORDERED: SODIUM BICARBONATE 8.4% INJ 50ML SYRINGE IV ONE (14:30)
[2020-03-24] MEDS ORDERED: NITROGLYCERIN 0.4 MG SL TAB SL PRN (14:30)
[2020-03-24] MEDS ORDERED: ALUM & MAG HYDROX-SIMETH LIQ(MAALOX) 30 ML PO ONE (14:30)
[2020-03-24] MEDS ORDERED: LORazepam 0.5 MG TAB PO PRN (14:30)
[2020-03-24] MEDS ORDERED: FAMOTIDINE 20 MG TAB PO ONE (14:30)
[2020-03-24] MEDS ORDERED: DONNATAL 5ml ORAL Elix (BELLADONNA ALK-PHENOBARB) PO ONE (14:30)
[2020-03-24] MEDS ORDERED: DEXTROSE (50%) 50ML SYRG IV PRN (14:30)
[2020-03-24] MEDS ORDERED: DEXTROSE (50%) 50ML SYRG IV ONE (14:30)
[2020-03-24] MEDS ORDERED: CALCIUM CHL 100MG/ML 1,000 MG in D5W 5% 100 ML IV ONE (14:30)
[2020-03-24] MEDS ORDERED: MORPHINE SULF INJ 2 MG/ML SYRINGE 1ML IV PRN ×2 (14:30)
[2020-03-24] MEDS ORDERED: ALUM & MAG HYDROX-SIMETH LIQ(MAALOX) 30 ML PO PRN (14:30)
[2020-03-24] MEDS ORDERED: CITA10TA70 PO (14:59)
[2020-03-24] MEDS ORDERED: LISI-646 PO (14:59)
[2020-03-24] MEDS ORDERED: CANA100T PO (14:59)
[2020-03-24] MEDS ORDERED: MULT-928 PO (15:00)
[2020-03-24] MEDS ORDERED: CYAN100T7 PO (15:01)
[2020-03-24] MEDS ORDERED: FERR-7 PO (15:03)
[2020-03-24 15:34] LABS: Cholesterol 110 mg/dL (< 200); HDL Cholesterol 29 mg/dL (40-59); LDL Cholesterol 59 mg/dL (< 100); Triglycerides 183 mg/dL (< 150)
[2020-03-24] MEDS: InsuLIN REG 1unit/0.01ml Soln (100units/ml) SC SCH ×2 (17:00→22:54)
[2020-03-24] MEDS: ACCU-CHEK COMFORT CURVE STRIP VI SCH ×2 (17:11→22:53)
[2020-03-24] MEDS ORDERED: FUROSEMIDE 40 MG/4 ML VIAL IV SCH (18:00)
--- NOTE | 2020-03-24 21:00 | NUR ---
pt got to floor with 1 unit of PRBC at bedside
--- NOTE | 2020-03-24 21:18 | NUR ---
started Blood transfusion,VS stable
[2020-03-24] MEDS: SODIUM ZIRCONIUM CYCL 10 GM PAK PO SCH (22:53)
--- NOTE | 2020-03-24 23:35 | NUR ---
ended blood transfusion, tolerated well. stable VS, denies distress
[2020-03-24] MEDS: ACETAMINOPHEN 325 MG TAB PO PRN (23:38)
[2020-03-25] VITALS (8 sets, daily range): BP systolic 105–171; BP diastolic 49–80
[2020-03-25] MEDS ORDERED: PANTOPRAZOLE 40 MG/10 ML VIAL INJ IV ONE (00:45)
[2020-03-25] MEDS ORDERED: SUCRALFATE 1 GM TAB PO ONE (00:45)
[2020-03-25] MEDS ORDERED: SODIUM FERR GLUC 62.5MG/5ML 125 MG in SODIUM CHL 0.9% 100 ML IV ONE (00:45)
[2020-03-25] MEDS ORDERED: hydrALAZINE HCL 25 MG TAB PO PRN (01:15)
[2020-03-25] MEDS: FUROSEMIDE 40 MG/4 ML VIAL IV SCH ×3 (01:25→17:45)
[2020-03-25] MEDS: SODIUM CHLORIDE 0.9% 1,000 ML IV SCH ×3 (01:25→21:00)
--- NOTE | 2020-03-25 01:30 | NUR ---
Ferrlicet IV not available even in ICU. Charge nurse made aware.will inform
[2020-03-25 01:55] LABS: Basophils # (auto) 0 10 ^3/uL (0-0.2); Basophils % (auto) 0.4 % (0.0-2.0); Eosinophils # (auto) 0 10 ^3/uL (0-0.8); Hematocrit 21.7 % (41.0-53.0); Hemoglobin 7.4 g/dL (13.5-17.5); Mean Corpuscular Hemoglobin 29.9 pg (28.0-32.0); Neutrophils # (auto) 7.8 10 ^3/uL (1.6-8.6); Neutrophils % (auto) 80.8 % (37.0-80.0); White Blood Cell 9.6 10^3/uL (4.4-10.8)
[2020-03-25 01:56] LABS: Eosinophils % (auto) 0.3 % (0.0-7.0); Lymphocytes # (auto) 1.2 10 ^3/uL (0.4-5.4); Mean Corpuscular Hgb Conc. 33.8 g/dL (32.0-36.0); Mean Corpuscular Volume 88.5 fL (80.0-100.0); Monocytes # (auto) 0.6 10 ^3/uL (0-1.3); Monocytes % (auto) 6.5 % (0.0-12.0); Platelet Count (auto) 339 10^3/uL (140-450); Red Blood Cells 2.46 10^6/uL (4.5-5.90); Red Cell Distribution Width 19.5 % (11.8-14.3)
--- NOTE | 2020-03-25 02:00 | NUR ---
paged hospitalist regarding Ferrlicet unavailability. will call pharmacy in the morning
[2020-03-25 02:14] LABS: BUN/Creatinine Ratio 23.3; Calcium 8.2 mg/dL (8.5-10.1); Potassium 4.3 mmol/L (3.5-5.1)
--- NOTE | 2020-03-25 03:14 | NUR ---
spoke with the hospitalist (dr. wall) informing unavailability of Ferrlicet IV, will call pharmacy in AM
[2020-03-25] MEDS: SUCRALFATE 1 GM TAB PO SCH ×4 (06:29→21:56)
[2020-03-25] MEDS: SODIUM ZIRCONIUM CYCL 10 GM PAK PO SCH ×3 (06:29→21:56)
--- NOTE | 2020-03-25 06:35 | NUR ---
spoke with the pharmacist regarding pt's Ferrlicet stated its not available and will change the brand and send it up
[2020-03-25] MEDS: ACCU-CHEK COMFORT CURVE STRIP VI SCH ×4 (06:43→21:56)
[2020-03-25] MEDS: InsuLIN REG 1unit/0.01ml Soln (100units/ml) SC SCH ×4 (06:43→22:00)
--- NOTE | 2020-03-25 06:45 | NUR ---
took pictures of wounds and changed dressing
[2020-03-25] MEDS: ACETAMINOPHEN 325 MG TAB PO PRN (06:59)
--- NOTE | 2020-03-25 08:43 | NUR ---
Opening Shift Note Assumed care of patient, awake and alert A/O x 4. No S/S of distress/SOB or pain. IV to Left AC intact and patent. No S/Sx of hyper/hypoglysemia noted. Lungs clear to bases. Instructed on POC and to call for assist PRN, will continue to monitor for changes Q1hr and PRN.
[2020-03-25] MEDS: cefTRIAXone 1GM/50ML D5W 50 ML IV SCH (09:32)
[2020-03-25] MEDS: PANTOPRAZOLE 40 MG/10 ML VIAL INJ IV SCH ×2 (09:32→21:55)
[2020-03-25] MEDS: CITALOPRAM HYDROBR 20 MG TAB PO SCH (09:33)
--- NOTE | 2020-03-25 11:16 | NUR ---
DR LEY AT BEDSIDE. NEW ORDERS RECEIVED.
[2020-03-25] MEDS: SODIUM FERR GLUC 125 MG in NS 100 ML IV SCH (11:56)
[2020-03-25] MEDS: CYANOCOBALAMIN 500 MCG TAB PO SCH (11:58)
[2020-03-25] MEDS ORDERED: IRON SUCROSE COMPLEX 200 MG in SODIUM CHL 0.9% 100 ML IV SCH (12:00)
--- NOTE | 2020-03-25 12:01 | NUR ---
DR TRAN AT BEDSIDE. PATIENT REFUSED EGD. NO NEW ORDERS RECEIVED.
--- NOTE | 2020-03-25 12:45 | NUR ---
WOUND CARE NOTE: IN TO SEE PATIENT AT THIS TIME PER WOUND CARE CONSULT REQUEST. PATIENT ADMITTED TO [facility] WITH DIAGNOSIS OF SEVERE ANEMIA, HYPERKALEMIA, CKD 4; CURRENT GIGI SCORE IS 18. PATIENT STATES HE UNDERWENT AN I&D ABSCESS TO THE ABDOMEN A FEW MONTHS AGO. WOUND WAS LEFT OPEN TO HEAL BY SECONDARY INTENTION. SURGEON WANTED PATIENT TO HAVE WOUND VAC, PATIENT REFUSED. WOUND REMAINS OPEN, WITH LARGE 5 X 25 X 0.3 CM FULL THICKNESS WOUND WOUND CULTURE DONE AT THIS TIME, SENT OFF TO LAB FOR PROCESSING. NO OVERT SIGNS OF INFECTION NOTED. APPLIED SILVASORB, THERAHONEY GAUZE, ABD PADS, MEDIPORE TAPE APPLIED. PATIENT ALSO HAS MULTIPLE SCABBED AND SCARRED AREAS TO THE CHEST, GROIN, AND LEFT UPPER THIGH. LEFT ALL OPEN TO AIR. ALL WOUNDS WERE PHOTOGRAPHED FOR REFERENCE BY BEDSIDE NURSE AT TIME OF ADMIT. SURGICAL CONSULT PENDING. RECOMMEND: DAILY/PRN DRESSING CHANGE TO ABD WOUND, SKIN/WOUND CARE PLAN, DIETARY CONSULT. WILL DEFER ALL OTHER WOUND RECOMMENDATIONS TO SURGEON AT THIS POINT. WOUND CARE TEAM WILL CONTINUE TO MONITOR. Addendum: 03/25/20 at 2058 by Gissel Owusu RN Amended: Links added.
--- NOTE | 2020-03-25 14:12 | NUR ---
Started blood transfusion patient tolerating well shows no signs of distress at this time. Will continue to monitor. Call light in reach.
--- NOTE | 2020-03-25 14:52 | NUR ---
Blood transfusion ended. Patient tolerated well. Patient shows no signs of distress at this time.
--- NOTE | 2020-03-25 17:19 | NUR ---
IV removal IV DC'd with clean sterile technique, catheter fully intact. Pressure dressing applied to site. Patient tolerated well. NOTE:
--- NOTE | 2020-03-25 19:30 | NUR ---
Opening Shift Note Assumed care of patient, awake and alert. No S/S of distress/SOB or pain. Instructed on POC and to call for assist PRN, will continue to monitor for changes Q1hr and PRN.
--- NOTE | 2020-03-25 19:39 | NUR ---
ENDORSED CARE TO SERGEY DRISCOLL. PATIENT SHOWS NO SIGNS OF DISTRESS AT THIS TIME.
[2020-03-25 20:23] LABS: Urine Bacteria NONE SEEN /hpf (None Seen); Urine Blood 1+ /uL (Negative); Urine Specific Gravity 1.013 (1.001-1.035); Urine WBC 1 /hpf (0 - 3)
[2020-03-25 20:32] LABS: Alcohol, Urine < 3.0 mg/dL (0-10); Amphetamine Screen, Urine NEGATIVE (NEGATIVE); Barbiturate Scree,Urine NEGATIVE (NEGATIVE); Benzodiazephine Screen, Urine NEGATIVE (NEGATIVE); Cannabinoid Screen, Urine NEGATIVE (NEGATIVE); Cocaine Screen, Urine NEGATIVE (NEGATIVE); Opiate Scree,Urine NEGATIVE (NEGATIVE); Phencyclidine Screen, Urine NEGATIVE (NEGATIVE)
[2020-03-26] MEDS: SODIUM CHLORIDE 0.9% 1,000 ML IV SCH (04:51)
[2020-03-26 05:03] VITALS: BP 147/65
[2020-03-26 05:55] LABS: Eosinophils # (auto) 0.2 10 ^3/uL (0-0.8); Lymphocytes # (auto) 1.2 10 ^3/uL (0.4-5.4); Monocytes # (auto) 0.5 10 ^3/uL (0-1.3); Neutrophils # (auto) 5.2 10 ^3/uL (1.6-8.6)
[2020-03-26 05:57] LABS: Basophils # (auto) 0.1 10 ^3/uL (0-0.2); Eosinophils % (auto) 3.2 % (0.0-7.0); Hematocrit 23.9 % (41.0-53.0); Hemoglobin 8.2 g/dL (13.5-17.5); Lymphocytes % (auto) 16.3 % (10.0-50.0); Mean Corpuscular Hemoglobin 29.9 pg (28.0-32.0); Mean Corpuscular Hgb Conc. 34.2 g/dL (32.0-36.0); Mean Corpuscular Volume 87.4 fL (80.0-100.0); Monocytes % (auto) 7.4 % (0.0-12.0); Neutrophils % (auto) 72.1 % (37.0-80.0); Platelet Count (auto) 318 10^3/uL (140-450); Red Blood Cells 2.74 10^6/uL (4.5-5.90); Red Cell Distribution Width 18.4 % (11.8-14.3); White Blood Cell 7.2 10^3/uL (4.4-10.8)
[2020-03-26] MEDS: SODIUM ZIRCONIUM CYCL 10 GM PAK PO SCH ×2 (06:12→11:43)
[2020-03-26] MEDS: SUCRALFATE 1 GM TAB PO SCH ×2 (06:12→12:16)
[2020-03-26] MEDS: FUROSEMIDE 40 MG/4 ML VIAL IV SCH (06:13)
[2020-03-26] MEDS: ACCU-CHEK COMFORT CURVE STRIP VI SCH ×2 (06:13→12:17)
[2020-03-26 06:17] LABS: Potassium 3.7 mmol/L (3.5-5.1)
[2020-03-26 06:23] LABS: Calcium 7.9 mg/dL (8.5-10.1); Magnesium 2.2 mg/dL (1.6-2.6)
[2020-03-26] MEDS: InsuLIN REG 1unit/0.01ml Soln (100units/ml) SC SCH ×2 (06:51→11:30)
--- NOTE | 2020-03-26 07:00 | NUR ---
OPENING SHIFT NOTE RECEIVED REPORT ON THE PATIENT. AWAKE LYING IN BED. PATIENT SHOWS NO SIGNS OF DISTRESS AT THIS TIME. DISCUSSED THE PLAN OF CARE WITH THE PATIENT. BED IN LOWEST POSITION, SIDE RAILS UP X2, AND THE CALL LIGHT IS WITHIN REACH.
[2020-03-26 09:00] VITALS: BP 163/75
--- NOTE | 2020-03-26 09:33 | NUR ---
DR LEY AT BEDSIDE. INFORMED MD OF RENAL US RESULTS AND STILL WAITING FOR SURGICAL CONSULT. NEW ORDERS RECEIVED.
[2020-03-26] MEDS: PANTOPRAZOLE 40 MG/10 ML VIAL INJ IV SCH (10:30)
[2020-03-26] MEDS: cefTRIAXone 1GM/50ML D5W 50 ML IV SCH (10:30)
[2020-03-26] MEDS: CYANOCOBALAMIN 500 MCG TAB PO SCH (10:30)
[2020-03-26] MEDS: CITALOPRAM HYDROBR 20 MG TAB PO SCH (10:30)
[2020-03-26 10:44] LABS: Phosphorus 3.4 mg/dL (2.5-4.90); Uric Acid 10.2 mg/dL (3.5-7.2)
--- NOTE | 2020-03-26 11:01 | NUR ---
DR FITCH AT BEDSIDE. NO NEW ORDERS RECEIVED.
--- NOTE | 2020-03-26 11:05 | NUR ---
DR FITCH AT BEDSIDE. NO NEW ORDERS RECEIVED.
--- NOTE | 2020-03-26 11:12 | NUR ---
DR TRAN AT BEDSIDE. NEW ORDERS RECEIVED.
--- NOTE | 2020-03-26 11:47 | NUR ---
Nutrition Assessment Notes please see attached link for complete assessment Est Energy needs BW 75 [id number] kcal (23-25kcal/kg BW), Est protein needs: 75-82 g (1.0-1.1g/kg BW r/t elev RFT wounds). Will reassess prn. Addendum: 03/26/20 at [address] Amended: Links added.
[2020-03-26] MEDS: SODIUM FERR GLUC 125 MG in NS 100 ML IV SCH (12:18)
[2020-03-26 13:00] VITALS: BP 154/68
[2020-03-26 13:23] VITALS: BP 161/72
[2020-03-26] MEDS ORDERED: PANTOPRAZOLE 40 MG TAB PO SCH (22:00)
== END 2020-03-26 15:11 | disposition home or self-care (01) | DRG 811 ==
LOC: ER 10:19 → TELE 10:20 → TELE-WESTW 20:35
PROVIDERS: ADMIT Hospitalist; ATTEND Internal Medicine
PROC: 30233N1 Transfusion of Nonautologous Red Blood Cells into Peripheral Vein, Percutaneous Approach (ICD-10-PCS; principal; 2020-03-24)
DX: D62 Acute posthemorrhagic anemia (principal); N18.6 End stage renal disease; E44.0 Moderate protein-calorie malnutrition; E87.2 Acidosis; I12.0 Hypertensive chronic kidney disease with stage 5 chronic kidney disease or end stage renal disease; N17.9 Acute kidney failure, unspecified; E11.22 Type 2 diabetes mellitus with diabetic chronic kidney disease; E78.5 Hyperlipidemia, unspecified; E87.5 Hyperkalemia; F32.9 Major depressive disorder, single episode, unspecified; K52.9 Noninfective gastroenteritis and colitis, unspecified; Z79.84 Long term (current) use of oral hypoglycemic drugs; Z79.899 Other long term (current) drug therapy; Z80.1 Family history of malignant neoplasm of trachea, bronchus and lung; Z82.5 Family history of asthma and other chronic lower respiratory diseases; Z85.118 Personal history of other malignant neoplasm of bronchus and lung; Z87.11 Personal history of peptic ulcer disease; Z68.26 Body mass index [BMI] 26.0-26.9, adult
CPT/HCPCS: 36415; 36430; 71046; 76775; 80048; 80053; 80061; 80307; 81001; 82306; 82962; 83036; 83735; 83970; 84100; 84484; 84550; 85025; 86850; 86900; 86901; 86920; 87040; 87077; 87086; 87186; 87205; 93005; 93306; 94644; 96361; 96365; 96375; C9113; G0378; J0696; J1756; J1815; J7060

== ENCOUNTER → 2020-03-24 | Outpatient (CLI) | payer BC ==
[~2020-03-24] MED LIST changes: +AMPI500C8 PO; +CANA100T PO; +CITA10TA70 PO; +CYAN100T7 PO; +FERR-7 PO; +LEVO750T8 PO; +LISI-646 PO; +MULT-928 PO; +PANT40TA2 PO; +TAM04C PO
[2020-03-24 08:41] LABS: Red Cell Distribution Width 17.8 % (11.8-14.3)
[2020-03-24 08:43] LABS: Hematocrit 20.9 % (41.0-53.0); Mean Corpuscular Hemoglobin 29.1 pg (28.0-32.0); Mean Corpuscular Hgb Conc. 30.5 g/dL (32.0-36.0); Mean Corpuscular Volume 95.5 fL (80.0-100.0); Platelet Count (auto) 480 10^3/uL (140-450); Red Blood Cells 2.19 10^6/uL (4.5-5.90); White Blood Cell 15.4 10^3/uL (4.4-10.8)
[2020-03-24 08:50] LABS: Albumin 2.5 g/dL (3.4-5.0); Calcium 8.2 mg/dL (8.5-10.1)
[2020-03-24 08:53] LABS: Bilirubin, Total 0.2 mg/dL (0.2-1.0); Total Protein 6.7 g/dL (6.4-8.2)
[2020-03-24 09:19] LABS: Hemoglobin 6.4 g/dL (13.5-17.5); Potassium 5.6 mmol/L (3.5-5.1)
[2020-03-24 09:21] LABS: Band Neutrophils % (manual) 0; Basophils % (manual) 0 (0.0-2.0); Blast Cells 0; Eosinophils % (manual) 0 (0-7); Monocytes % (manual) 0 (0-12); Myelocytes % 0; Promyelocytes % 0; Reactive Lymphocytes 0
[2020-03-24 09:53] LABS: Lymphocytes % (manual) 14 (10.0-50.0); Metamyelocytes % 1
== END | disposition home or self-care (01) ==
LOC: LAB 08:23
PROVIDERS: ATTEND Internal Medicine Gastroenterology
DX: D64.9 Anemia, unspecified (principal); R93.3 Abnormal findings on diagnostic imaging of other parts of digestive tract
CPT/HCPCS: 36415; 80053; 85007; 85027

== ENCOUNTER 2020-04-02 08:15 | Inpatient (IN) | payer BC ==
[~2020-04-02] VITALS: Ht 167.6 cm; Wt 79.4 kg
[~2020-04-02 08:15] MED LIST changes: -PANT40TA2 PO
[2020-04-02] MEDS ORDERED: SODIUM CHLORIDE 0.9% 1,000 ML IV ONE ×2 (08:43)
[2020-04-02] MEDS ORDERED: PIPERACILLIN-TAZOB 3.375GM 100 ML IV ONE (08:45)
[2020-04-02 09:34] LABS: Basophils # (auto) 0.1 10 ^3/uL (0-0.2); Basophils % (auto) 0.4 % (0.0-2.0); Eosinophils # (auto) 0 10 ^3/uL (0-0.8); Hemoglobin 8.7 g/dL (13.5-17.5); Neutrophils # (auto) 14.9 10 ^3/uL (1.6-8.6)
[2020-04-02 09:36] LABS: Eosinophils % (auto) 0.1 % (0.0-7.0); Hematocrit 26.4 % (41.0-53.0); Lymphocytes # (auto) 0.4 10 ^3/uL (0.4-5.4); Lymphocytes % (auto) 2.5 % (10.0-50.0); Mean Corpuscular Hemoglobin 29.9 pg (28.0-32.0); Mean Corpuscular Volume 90.8 fL (80.0-100.0); Monocytes # (auto) 0.5 10 ^3/uL (0-1.3); Monocytes % (auto) 2.9 % (0.0-12.0); Neutrophils % (auto) 94.1 % (37.0-80.0); Nucleated Red Blood Cells % 0.1 %; Platelet Count (auto) 489 10^3/uL (140-450); Red Blood Cells 2.91 10^6/uL (4.5-5.90); Red Cell Distribution Width 19.8 % (11.8-14.3); White Blood Cell 15.8 10^3/uL (4.4-10.8)
[2020-04-02 09:57] LABS: Albumin 2.2 g/dL (3.4-5.0); Anion Gap 12 (5-15); Blood Urea Nitrogen 58 mg/dL (7-18); Calcium 8.4 mg/dL (8.5-10.1); Carbon Dioxide 13 mmol/L (21-32); Chloride 116 mmol/L (98-107); Glucose 190 mg/dL (74-106); Potassium 4.1 mmol/L (3.5-5.1); Sodium 141 mmol/L (136-145)
[2020-04-02 10:06] LABS: Alanine Aminotransferase 14 U/L (16-61); Alkaline Phosphatase 92 U/L (45-117); Aspartate Aminotransferase 8 U/L (15-37); BUN/Creatinine Ratio 12.3; Bilirubin, Total 0.2 mg/dL (0.2-1.0); GFR African American 16 mL/min; GFR Non-African American 13 mL/min; INR 1.03 (0.9-1.15); Partial Thromboplastin Time 29.9 sec (23.0-31.2); Total Protein 6.7 g/dL (6.4-8.2)
[2020-04-02 12:28] LABS: Urine Bacteria NONE SEEN /hpf (None Seen); Urine Blood Negative /uL (Negative); Urine WBC 3 /hpf (0 - 3)
[2020-04-02] MEDS ORDERED: LORazepam 2MG/ML-1ML VIAL IV PRN (13:15)
[2020-04-02] MEDS ORDERED: DEXTROSE (50%) 50ML SYRG IV PRN (13:15)
[2020-04-02] MEDS ORDERED: KETOROLAC TROMETH 30 MG/ML 1ML VIAL IV ONE (13:15)
[2020-04-02] MEDS ORDERED: MORPHINE SULF INJ 2 MG/ML SYRINGE 1ML IV PRN ×2 (13:15)
[2020-04-02] MEDS ORDERED: NITROGLYCERIN 0.4 MG SL TAB SL PRN (13:15)
[2020-04-02] MEDS ORDERED: hydrALAZINE HCL 20 MG/ML VL IV PRN (13:15)
[2020-04-02] MEDS: D5W/SOD CHLO 0.9% 1,000 ML IV SCH (13:15)
[2020-04-02] MEDS ORDERED: PANT40TA2 PO (15:04)
[2020-04-02] MEDS ORDERED: fentaNYL CITRATE 100 MCG/2 ML VL ONE (17:47)
[2020-04-02] MEDS ORDERED: MIDAZOLAM HCL 1MG/1ML-2 ML VIAL ONE (17:48)
[2020-04-02] MEDS ORDERED: LIDOCAINE 2%HCL (LOCAL ANESTH.) INJ 20ML MDV ONE (18:00)
[2020-04-02] MEDS: InsuLIN REG 1unit/0.01ml Soln (100units/ml) SC SCH (18:00)
[2020-04-02] MEDS: ACCU-CHEK COMFORT CURVE STRIP VI SCH (18:00)
[2020-04-02] MEDS ORDERED: IOHEXOL 350 MG/ML 100ML IJ ONE (18:00)
--- NOTE | 2020-04-02 19:32 | NUR ---
Telemetry admit from procedure Patient admitted to Telemetry unit. Patient oriented to primary RN, unit, room, bed, and unit policies regarding patient care and visiting hours. Patient now on continuous telemetry monitoring, tele box # 25 and telemetry reading on arrival to unit is sinus rhythm. Patient weighed by bedscale and encouraged to call if they need something. All questions and concerns addressed, patient verbalized understanding. Patient has no s/s of distress or SOB.
[2020-04-02] MEDS ORDERED: PNEUMOCOCCAL VACC POLYS 25 MCG/0.5 ML VIAL IM ONE (20:15)
[2020-04-02 22:00] VITALS: BP 161/64
[2020-04-02] MEDS ORDERED: PIPERACILLIN-TAZOB 2.25GM 50 ML IV SCH (22:00)
[2020-04-02] MEDS: CLINDAMYCIN 300MG IV 50 ML IV SCH (22:00)
[2020-04-03] MEDS: ACCU-CHEK COMFORT CURVE STRIP VI SCH ×5 (00:16→23:37)
[2020-04-03] MEDS: InsuLIN REG 1unit/0.01ml Soln (100units/ml) SC SCH ×5 (00:19→23:31)
[2020-04-03 05:00] VITALS: BP 153/69
[2020-04-03] MEDS: CLINDAMYCIN 300MG IV 50 ML IV SCH ×3 (07:01→21:34)
[2020-04-03 07:19] LABS: Eosinophils # (auto) 0.2 10 ^3/uL (0-0.8); Hemoglobin 8.3 g/dL (13.5-17.5); Neutrophils # (auto) 7.6 10 ^3/uL (1.6-8.6); Red Blood Cells 2.73 10^6/uL (4.5-5.90)
[2020-04-03 07:21] LABS: Basophils # (auto) 0.1 10 ^3/uL (0-0.2); Basophils % (auto) 0.6 % (0.0-2.0); Hematocrit 24.8 % (41.0-53.0); Lymphocytes # (auto) 0.8 10 ^3/uL (0.4-5.4); Lymphocytes % (auto) 8.9 % (10.0-50.0); Mean Corpuscular Hemoglobin 30.4 pg (28.0-32.0); Mean Corpuscular Hgb Conc. 33.4 g/dL (32.0-36.0); Monocytes # (auto) 0.4 10 ^3/uL (0-1.3); Monocytes % (auto) 4.6 % (0.0-12.0); Neutrophils % (auto) 83.9 % (37.0-80.0); Platelet Count (auto) 440 10^3/uL (140-450); Red Cell Distribution Width 19.2 % (11.8-14.3); White Blood Cell 9.1 10^3/uL (4.4-10.8)
--- NOTE | 2020-04-03 07:23 | NUR ---
End of Shift Note Endorsed care to dayshift RN. At this time patient has no s/s of distress or SOB.
[2020-04-03 07:32] LABS: Albumin 1.9 g/dL (3.4-5.0); Calcium 8.3 mg/dL (8.5-10.1); Potassium 4.1 mmol/L (3.5-5.1)
[2020-04-03 07:34] LABS: INR 1.02 (0.9-1.15)
[2020-04-03 07:37] LABS: BUN/Creatinine Ratio 14.6; Bilirubin, Total 0.2 mg/dL (0.2-1.0); Total Protein 5.9 g/dL (6.4-8.2)
[2020-04-03 08:43] VITALS: BP 151/68
[2020-04-03] MEDS: PANTOPRAZOLE 40 MG/10 ML VIAL INJ IV SCH (09:11)
[2020-04-03] MEDS: CITALOPRAM HYDROBR 20 MG TAB PO SCH (09:11)
[2020-04-03] MEDS: cefTRIAXone 1GM/50ML D5W 50 ML IV SCH (09:11)
[2020-04-03] MEDS: NIFEdipine ER 30 MG TAB PO SCH (09:12)
[2020-04-03] MEDS: KETOROLAC TROMETH 30 MG/ML 1ML VIAL IV PRN (09:13)
[2020-04-03] MEDS: ENOXAPARIN SOD 30 MG/0.3 ML SYRINGE SC SCH (09:14)
[2020-04-03] MEDS: D5W/SOD CHLO 0.9% 1,000 ML IV SCH ×2 (09:16→16:31)
--- NOTE | 2020-04-03 09:20 | NUR ---
DRAINED 275 ML OF LIGHT RED FLUID FROM PERCUTANEOUS NEPHROSTOMY TUBE.
[2020-04-03] MEDS ORDERED: levoFLOXacin 500MG 100 ML IV SCH (10:00)
--- NOTE | 2020-04-03 11:00 | NUR ---
WOUND CARE NOTE: Wound care int o see patient per wound care request regarding non-healing wounds to abdomen, chest and pubic area that are noted on admission. Bedside nurse took photograph of patient's wounds upon admission for reference. Patient is 74 y/o male with admitting diagnosis of Hydronephrosis, Rt. Pyelonephritis, Suspect urosepsis. Patient is resting in bed in Rm. 221B. Patient is awake, alert and oriented. He's ambulatory and self turning and repositioning. His Jay score is 18. Patient came in with multiple full thickness wounds to Rt chest, distal to R breast area(1x3x0.5cm). His medial chest has pink scarr tissue with two open wounds to proximal (1.2c2cm) and distal (2x0.8cm) area. His Rt upper abdomen has 2x4cm open ulceration, lower abdomen area is much bigger wound measuring 4.5x25x0.8cm; and to pubis area (2.2x7.5x0.5cm). Wounds are red with granulation tissue,genaro wound is pink, minimal serous drainage noted, no odor noted. Patient reported that he has history of abscess wounds to chest and abdominal area which he thinks from injecting insulin/medication, underwent I&D few months ago. He added that surgeon recommended wound vac but he refused and so wounds are left open to heal by secondary intention. Patient reported that he's receiving wound care "once a week" at Wound care/PT clinic in [place] and he do his daily dressing change at home. Cleansed wounds with NS,patted dry, applied Calcium alginate over wound bed, covered with absorbent pad and secured with Medipore tape. Patient tolerated well and denies any other wound. RECOMMENDATION: Nursing to continue with DAILY/PRN dressing change to multiple wounds per MD order, Dietary consult, continue monitoring by wound care while patient is hospitalized. Addendum: 04/03/20 at 1506 by Kristy Correa RN Amended: Links added.
[2020-04-03 12:43] VITALS: BP 143/65
--- NOTE | 2020-04-03 15:10 | NUR ---
Doctor Nathanael informed patient is positive for MRSA in naras. New orders received see EMR for orders.
[2020-04-03 16:49] VITALS: BP 136/57
[2020-04-03 18:24] LABS: Urine Bacteria NONE SEEN /hpf (None Seen); Urine Blood 3+ /uL (Negative); Urine Specific Gravity 1.016 (1.001-1.035); Urine WBC 26 /hpf (0 - 3)
--- NOTE | 2020-04-03 19:30 | NUR ---
Opening Shift Note Assumed care of patient, awake and alert. A&Ox4. No S/S of distress/SOB or pain. Safety measures maintained by keeping the bed locked in lowest position, 2 side rails up, personal items and call light within reach. Instructed on POC and to call for assist PRN, will continue to monitor for changes Q1hr and PRN.
[2020-04-03] MEDS: MUPIROCIN 2% OINT 15gm or 22gm EACHNOSTRI SCH (21:34)
[2020-04-03 21:46] VITALS: BP 141/65
[2020-04-04] MEDS: D5W/SOD CHLO 0.9% 1,000 ML IV SCH ×2 (02:00→11:45)
[2020-04-04 05:00] VITALS: BP 148/63
[2020-04-04] MEDS: ACCU-CHEK COMFORT CURVE STRIP VI SCH ×3 (05:28→17:35)
[2020-04-04] MEDS: InsuLIN REG 1unit/0.01ml Soln (100units/ml) SC SCH ×3 (05:28→17:49)
[2020-04-04] MEDS: CLINDAMYCIN 300MG IV 50 ML IV SCH ×3 (05:42→22:18)
--- NOTE | 2020-04-04 06:07 | NUR ---
Drained 180 mL of light red fluid from percutaneous nephrostomy tube
[2020-04-04 06:26] LABS: BUN/Creatinine Ratio 15.1
--- NOTE | 2020-04-04 08:24 | NUR ---
PATIENT C/O HEADACHE AND REQUESTING TYLENOL. INFORMED DOCTOR RICCI OF PATIENTS COMPLAINT AND MEDICATION REQUEST. NEW ORDERS RECEIVED, SEE EMR FOR ORDERS.
[2020-04-04 08:35] VITALS: BP 161/77
[2020-04-04] MEDS: ENOXAPARIN SOD 30 MG/0.3 ML SYRINGE SC SCH (08:48)
[2020-04-04] MEDS: ACETAMINOPHEN 325 MG TAB PO PRN ×3 (08:48→22:19)
[2020-04-04] MEDS: CITALOPRAM HYDROBR 20 MG TAB PO SCH (08:49)
[2020-04-04] MEDS: NIFEdipine ER 30 MG TAB PO SCH (08:49)
[2020-04-04] MEDS: MUPIROCIN 2% OINT 15gm or 22gm EACHNOSTRI SCH ×2 (08:50→22:18)
[2020-04-04] MEDS: cefTRIAXone 1GM/50ML D5W 50 ML IV SCH (08:50)
[2020-04-04] MEDS: PANTOPRAZOLE 40 MG/10 ML VIAL INJ IV SCH (08:50)
--- NOTE | 2020-04-04 11:42 | NUR ---
Nutrition Consult Consider adding Nephrovite and Vitamin C 500 mg bid Consider changing diet to CCHO 60g, Renal Specific 2g Na, 2g K Est energy needs [id number] kcal (20-25 kcal/kg BW 78.3kg) Est protein needs 50-63g (0.6-0.8g/kg BW d/t ESRD no HD) Will reassess prn. Addendum: 04/04/20 at [address] Amended: Links added.
--- NOTE | 2020-04-04 12:02 | NUR ---
Morning Tele EKG showed peaked t wave. EKG performed, notified doctor Huffman of EKG. No new orders received.
[2020-04-04 12:46] VITALS: BP 150/69
[2020-04-04 17:01] VITALS: BP 184/81
[2020-04-04] MEDS: cloNIDine HCL 0.1 MG TAB PO PRN (17:22)
--- NOTE | 2020-04-04 19:30 | NUR ---
Opening Shift Note Assumed care of patient, awake and alert. No S/S of distress/SOB or pain. Instructed on POC and to call for assist PRN, will continue to monitor for changes Q1hr and PRN.
[2020-04-04 22:00] VITALS: BP 129/72
[2020-04-05] VITALS (10 sets, daily range): BP systolic 135–166; BP diastolic 64–91
[2020-04-05] MEDS: ACCU-CHEK COMFORT CURVE STRIP VI SCH ×4 (00:03→17:49)
[2020-04-05] MEDS: D5W/SOD CHLO 0.9% 1,000 ML IV SCH ×3 (05:47→16:52)
[2020-04-05] MEDS: InsuLIN REG 1unit/0.01ml Soln (100units/ml) SC SCH ×4 (05:55→17:49)
[2020-04-05] MEDS: CLINDAMYCIN 300MG IV 50 ML IV SCH (05:56)
[2020-04-05 06:53] LABS: BUN/Creatinine Ratio 14.5
[2020-04-05] MEDS: CITALOPRAM HYDROBR 20 MG TAB PO SCH (08:14)
[2020-04-05] MEDS: NIFEdipine ER 30 MG TAB PO SCH ×3 (08:14→09:32)
[2020-04-05] MEDS: ENOXAPARIN SOD 30 MG/0.3 ML SYRINGE SC SCH (08:14)
[2020-04-05] MEDS: PANTOPRAZOLE 40 MG/10 ML VIAL INJ IV SCH (09:30)
[2020-04-05] MEDS: cefTRIAXone 1GM/50ML D5W 50 ML IV SCH (09:30)
[2020-04-05] MEDS: MUPIROCIN 2% OINT 15gm or 22gm EACHNOSTRI SCH ×2 (09:30→21:39)
[2020-04-05] MEDS: KETOROLAC TROMETH 30 MG/ML 1ML VIAL IV PRN (09:32)
[2020-04-05 10:15] LABS: Basophils # (auto) 0 10 ^3/uL (0-0.2); Basophils % (auto) 0.6 % (0.0-2.0); Lymphocytes # (auto) 0.7 10 ^3/uL (0.4-5.4); Monocytes # (auto) 0.5 10 ^3/uL (0-1.3)
[2020-04-05 10:16] LABS: Eosinophils # (auto) 0.1 10 ^3/uL (0-0.8); Eosinophils % (auto) 2.1 % (0.0-7.0); Hematocrit 24.1 % (41.0-53.0); Hemoglobin 7.6 g/dL (13.5-17.5); Lymphocytes % (auto) 10.1 % (10.0-50.0); Mean Corpuscular Hemoglobin 29.1 pg (28.0-32.0); Mean Corpuscular Hgb Conc. 31.5 g/dL (32.0-36.0); Mean Corpuscular Volume 92.4 fL (80.0-100.0); Monocytes % (auto) 6.6 % (0.0-12.0); Neutrophils # (auto) 5.6 10 ^3/uL (1.6-8.6); Neutrophils % (auto) 80.6 % (37.0-80.0); Platelet Count (auto) 392 10^3/uL (140-450); Red Blood Cells 2.61 10^6/uL (4.5-5.90); Red Cell Distribution Width 19.2 % (11.8-14.3)
--- NOTE | 2020-04-05 11:28 | NUR ---
ROUNDING MD Dominic LEY AT BEDSIDE. NEW ORDERS RECEIVED. ALL QUESTIONS AND CONCERNS ADDRESSED AT THIS TIME. WILL IMPLEMENT ORDERS PER PROTOCAL
--- NOTE | 2020-04-05 14:41 | NUR ---
PER PRASHANTH PRE-OP RN PATIENT HAS BEEN MOVED AND IS NOW SCHEDULED FOR 1615
--- NOTE | 2020-04-05 15:24 | NUR ---
PRE-OP PER PRASHANTH RINCON THE LITHOTRIPSY MACHINE IS DELAYED AT THIS TIME AND SHE WILL GIVE THE RN A CALL WHEN THEY ARE READY FOR THE PATIENT. PATIENT UPDATED ON POC. PER PRASHANTH RINCON PATIENT DOES NOT NEED [facility] IN-HOUSE. THE PATIENT IS OKAY TO GO DOWN FOR SURGERY WITH THE NEGATIVE RAPID COVID-SHARLENE.
[2020-04-05] MEDS: cloNIDine HCL 0.1 MG TAB PO PRN (16:39)
[2020-04-05] MEDS: TAMSULOSIN HYDROCHLORIDE 0.4 MG CAP PO SCH (16:52)
[2020-04-05] MEDS ORDERED: IOHEXOL 300 MG/ML 100ML BOTTLE IJ ONE (16:54)
--- NOTE | 2020-04-05 18:48 | NUR ---
PT BROUGHT DOWN TO OR FOR PROCEDURE. PT ACCOMPANIED BY STAFF. NO DISTRESS NOTED AT THIS TIME.
--- NOTE | 2020-04-05 19:00 | NUR ---
Opening Shift Note AWAITING PATIENT'S RETURN FROM OR
[2020-04-05] MEDS ORDERED: fentaNYL CITRATE 100 MCG/2 ML VL ONE (19:01)
[2020-04-05] MEDS ORDERED: MIDAZOLAM HCL 1MG/1ML-2 ML VIAL ONE (19:01)
--- NOTE | 2020-04-05 19:09 | NUR ---
OR PER RN PRASHANTH PROCEDURE WILL BE CANCELLED PER RN THERE IS STILL TOO MUCH BLEEDING FROM THE NEPHROSTOMY. PT WILL BE BROUGHT BACK UP TO THE FLOOR AND MAY RESUME DIET
[2020-04-05] MEDS ORDERED: PROPOFOL 10 MG/ML 20 ML IV ONE (19:11)
--- NOTE | 2020-04-05 19:34 | NUR ---
PATIENT RETURNED TO ROOM FROM OR. NO SIGNS OR SYMPTOMS OF DISTRESS AT THIS TIME. BED LOCKED IN LOWEST POSITION, HOB ELEVATED AT LEAST 30 DEGREES, CALL LIGHT IS WITHIN REACH AND SIDE RAILS UP X 2. UPDATED PATIENT ON PLAN OF CARE. WILL CONTINUE TO MONITOR.
[2020-04-06] MEDS: ACCU-CHEK COMFORT CURVE STRIP VI SCH ×4 (00:24→17:33)
[2020-04-06] MEDS: InsuLIN REG 1unit/0.01ml Soln (100units/ml) SC SCH ×4 (00:25→17:33)
--- NOTE | 2020-04-06 01:51 | NUR ---
UA UA collected and sent to lab
[2020-04-06 02:23] LABS: Urine Amorphous Crystal FEW /hpf (None Seen); Urine Bacteria FEW /hpf (None Seen); Urine Blood 3+ /uL (Negative); Urine Hyaline Cast FEW /lpf (0 - 2); Urine Specific Gravity 1.015 (1.001-1.035); Urine WBC 468 /hpf (0 - 3)
[2020-04-06] MEDS: D5W/SOD CHLO 0.9% 1,000 ML IV SCH ×3 (03:44→17:54)
--- NOTE | 2020-04-06 04:58 | NUR ---
NEPHROSTOMY DRAINAGE Drained 140 mL of light red fluid from percutaneous nephrostomy tube
[2020-04-06 05:00] VITALS: BP 154/68
[2020-04-06 06:05] LABS: Basophils # (auto) 0 10 ^3/uL (0-0.2); Basophils % (auto) 0.7 % (0.0-2.0); Eosinophils # (auto) 0.1 10 ^3/uL (0-0.8); Eosinophils % (auto) 1.7 % (0.0-7.0); Hematocrit 25.1 % (41.0-53.0); Hemoglobin 8.5 g/dL (13.5-17.5); Lymphocytes # (auto) 0.7 10 ^3/uL (0.4-5.4); Lymphocytes % (auto) 10.2 % (10.0-50.0); Mean Corpuscular Hemoglobin 30.5 pg (28.0-32.0); Mean Corpuscular Hgb Conc. 33.8 g/dL (32.0-36.0); Mean Corpuscular Volume 90.3 fL (80.0-100.0); Monocytes # (auto) 0.5 10 ^3/uL (0-1.3); Monocytes % (auto) 7.3 % (0.0-12.0); Neutrophils # (auto) 5.7 10 ^3/uL (1.6-8.6); Neutrophils % (auto) 80.1 % (37.0-80.0); Platelet Count (auto) 392 10^3/uL (140-450); Red Blood Cells 2.78 10^6/uL (4.5-5.90); Red Cell Distribution Width 17.6 % (11.8-14.3); White Blood Cell 7.2 10^3/uL (4.4-10.8)
[2020-04-06 06:17] LABS: Potassium 4.1 mmol/L (3.5-5.1)
[2020-04-06 06:26] LABS: BUN/Creatinine Ratio 17.5
[2020-04-06 06:42] LABS: INR 1.04 (0.9-1.15); Partial Thromboplastin Time 31.9 sec (23.0-31.2)
--- NOTE | 2020-04-06 07:28 | NUR ---
CLOSING NOTE ENDORSED CARE TO DAY SHIFT RN
--- NOTE | 2020-04-06 08:00 | NUR ---
OPENING SHIFT NOTE ASSUMED CARE OF PATIENT AWAKE AND ALERT. NO S/S OF DISTRESS NOTED OR COMPLAINTS OF PAIN. PATIENT UPDATED ON POC FOR THE DAY AND ALL QUESTIONS ANSWERED. BED IS IN LOWEST, LOCKED POSITION WITH SIDE RAILS UP X2 AND CALL LIGHT WITHIN REACH. WILL CONTINUE TO MONITOR Q1H AND PRN.
[2020-04-06] MEDS: ACETAMINOPHEN 325 MG TAB PO PRN ×3 (08:49→22:59)
[2020-04-06 09:00] VITALS: BP 149/71
[2020-04-06] MEDS: ENOXAPARIN SOD 30 MG/0.3 ML SYRINGE SC SCH (09:44)
[2020-04-06] MEDS: NIFEdipine ER 30 MG TAB PO SCH (09:44)
[2020-04-06] MEDS: CITALOPRAM HYDROBR 20 MG TAB PO SCH (09:44)
[2020-04-06] MEDS: MUPIROCIN 2% OINT 15gm or 22gm EACHNOSTRI SCH ×2 (09:44→22:14)
[2020-04-06] MEDS: cefTRIAXone 1GM/50ML D5W 50 ML IV SCH (09:44)
[2020-04-06] MEDS: PANTOPRAZOLE 40 MG/10 ML VIAL INJ IV SCH (09:44)
--- NOTE | 2020-04-06 09:51 | NUR ---
AT BEDSIDE DR LEY AT BEDSIDE UPDATING PATIENT ON POC. PATIENT VERBALIZED UNDERSTANDING.
--- NOTE | 2020-04-06 11:16 | NUR ---
WOUND CARE WOUND CARE TO MULTIPLE ANTERIOR ABDOMINAL WOUNDS PROVIDED. PATIENT TOLERATED WELL.
[2020-04-06 13:00] VITALS: BP 139/65
--- NOTE | 2020-04-06 14:24 | NUR ---
assessment Patient has no post discharge needs identified as of now. Addendum: 04/06/20 at 1425 by Maria Luisa FELDMAN Amended: Links added.
[2020-04-06 16:38] VITALS: BP 153/75
--- NOTE | 2020-04-06 16:51 | NUR ---
NEPHROSTOMY DRAINAGE Drained 50 mL of sanguinous fluid from percutaneous nephrostomy tube
[2020-04-06] MEDS: TAMSULOSIN HYDROCHLORIDE 0.4 MG CAP PO SCH (17:33)
--- NOTE | 2020-04-06 19:20 | NUR ---
Opening Shift Note Assumed care of patient, awake and alert. No S/S of distress/SOB or pain. Instructed on POC and to call for assist PRN, will continue to monitor for changes Q1hr and PRN. Bed locked in lowest position, HOB elevated at least 30 degrees, side rails up x 2 and call light is within reach.
[2020-04-06] MEDS: cloNIDine HCL 0.1 MG TAB PO PRN (21:52)
[2020-04-06] MEDS: MEROPENEM 1GM IVPB 100 ML IV SCH (21:54)
[2020-04-06 22:00] VITALS: BP 173/68
--- NOTE | 2020-04-06 23:12 | NUR ---
NEPHROSTOMY DRAINAGE Drained 80 mL of sanguinous fluid from percutaneous nephrostomy tube
--- NOTE | 2020-04-06 23:23 | NUR ---
ENDORSED CARE TO GRACIELA RINCON
--- NOTE | 2020-04-06 23:24 | NUR ---
Assumed care of patient At this time patient is in resting in bed, respirations are even and unlabored, no s/s of distress, and is responsive to voice and touch. Will continue to monitor patient Q1 and PRN.
[2020-04-07] MEDS: ACCU-CHEK COMFORT CURVE STRIP VI SCH ×4 (00:06→17:43)
[2020-04-07] MEDS: InsuLIN REG 1unit/0.01ml Soln (100units/ml) SC SCH ×4 (00:16→17:44)
[2020-04-07 05:06] VITALS: BP 149/55
--- NOTE | 2020-04-07 06:00 | NUR ---
NEPHROSTOMY OUTPUT 50ML SANGUINEOUS
--- NOTE | 2020-04-07 07:20 | NUR ---
END OF SHIFT NOTE ENDORSED CARE TO DAYSHIFT NURSE. AT THIS TIME PATIENT HAS NO S/S OF DISTRESS OR SOB
[2020-04-07 07:21] LABS: Basophils % (auto) 0.7 % (0.0-2.0); Eosinophils # (auto) 0.2 10 ^3/uL (0-0.8); Hemoglobin 8.2 g/dL (13.5-17.5); Monocytes # (auto) 0.6 10 ^3/uL (0-1.3); Monocytes % (auto) 8.4 % (0.0-12.0); Neutrophils # (auto) 5.6 10 ^3/uL (1.6-8.6)
[2020-04-07 07:22] LABS: Basophils # (auto) 0 10 ^3/uL (0-0.2); Eosinophils % (auto) 2.4 % (0.0-7.0); Hematocrit 25.1 % (41.0-53.0); Lymphocytes # (auto) 0.8 10 ^3/uL (0.4-5.4); Lymphocytes % (auto) 10.5 % (10.0-50.0); Mean Corpuscular Hemoglobin 29.4 pg (28.0-32.0); Mean Corpuscular Hgb Conc. 32.6 g/dL (32.0-36.0); Mean Corpuscular Volume 90.3 fL (80.0-100.0); Platelet Count (auto) 368 10^3/uL (140-450); Red Blood Cells 2.78 10^6/uL (4.5-5.90); Red Cell Distribution Width 17.2 % (11.8-14.3); White Blood Cell 7.2 10^3/uL (4.4-10.8)
[2020-04-07 07:33] LABS: Calcium 7.9 mg/dL (8.5-10.1); Potassium 3.8 mmol/L (3.5-5.1)
[2020-04-07 09:00] VITALS: BP 172/64
[2020-04-07] MEDS: ENOXAPARIN SOD 30 MG/0.3 ML SYRINGE SC SCH (10:00)
[2020-04-07] MEDS: MUPIROCIN 2% OINT 15gm or 22gm EACHNOSTRI SCH ×2 (10:05→21:52)
[2020-04-07] MEDS: PANTOPRAZOLE 40 MG/10 ML VIAL INJ IV SCH (10:05)
[2020-04-07] MEDS: CITALOPRAM HYDROBR 20 MG TAB PO SCH (10:06)
[2020-04-07] MEDS: NIFEdipine ER 30 MG TAB PO SCH (10:07)
--- NOTE | 2020-04-07 10:28 | NUR ---
CALLED PHARMACY AND NOTIFIED THEM THAT PATIENTS MEROPENEM WAS NOT IN MEDICATION PIXIS, PER CERTIFIED ORTHOTIC FITTER WILL SEND MEDICATION DOWN.
[2020-04-07] MEDS: D5W/SOD CHLO 0.9% 1,000 ML IV SCH ×2 (10:49→19:45)
[2020-04-07] MEDS: MEROPENEM 1GM IVPB 100 ML IV SCH ×2 (10:49→21:52)
[2020-04-07] MEDS ORDERED: NIFEdipine ER 30 MG TAB PO ONE (11:45)
[2020-04-07 12:33] VITALS: BP 170/70
--- NOTE | 2020-04-07 12:33 | NUR ---
Nutrition Followup Note Wt 78.3 kg Pt`s sleeping when rounded this am. per records pt s/p ESWL. pt with no distress noted currently on renal std diet with adequate PO of 100% x 3 per RN doc Est energy needs [id number] kcal (20-25 kcal/kg BW 78.3kg) Est protein needs 50-63g (0.6-0.8g/kg BW d/t ESRD no HD) Will reassess prn. Labs: BUN 24 H CREAT 1.71 H CA 7.9 L GLU 118 H BM: Pt with 1 BM noted today per RN note Skin: BS 20 low risk, full details in property caretaker note PES: Altered nutrition related lab values r/t current chronic medical condition aeb pt with elevated RFTs, hypoalb Comments: Continue to monitor PO intake, labs, skin F/u high 3-5 days Rec: 1) refer pt to [facility] on DC. 2)Continue current plan of care. 3) Consider adding Nephrovite and Vitamin C 500 mg BID. 4) Consider CCHO 60g, Renal Specific 60g protein 2g Na, 2g K diet
[2020-04-07] MEDS: AMPICILLIN INJ 1 GM in SODIUM CHL 0.9% 50 ML IV SCH ×2 (13:14→18:31)
[2020-04-07 16:30] VITALS: BP 166/63
[2020-04-07] MEDS: ACETAMINOPHEN 325 MG TAB PO PRN ×2 (16:33→22:05)
[2020-04-07] MEDS: TAMSULOSIN HYDROCHLORIDE 0.4 MG CAP PO SCH (17:43)
--- NOTE | 2020-04-07 19:40 | NUR ---
Opening Shift Note Assumed care of patient, awake and alert. No S/S of distress/SOB or pain. Blevins draining to yellow urine output, nephrostomy tube dressing dry and intact with bloody urine output. Discussed on POC. Instructed to be NPO after MN, for Lithotripsy tomorrow, patient verbalized understanding. Instructed to call for assist PRN, safety precaution in place, call light within reach, will continue to monitor for changes Q1hr and PRN.
[2020-04-07 21:00] VITALS: BP 158/71
[2020-04-07] MEDS: cloNIDine HCL 0.1 MG TAB PO PRN (22:14)
[2020-04-08] MEDS: ACCU-CHEK COMFORT CURVE STRIP VI SCH ×3 (00:39→12:36)
[2020-04-08] MEDS: AMPICILLIN INJ 1 GM in SODIUM CHL 0.9% 50 ML IV SCH ×3 (00:41→12:00)
[2020-04-08] MEDS: InsuLIN REG 1unit/0.01ml Soln (100units/ml) SC SCH ×3 (00:41→12:00)
[2020-04-08 05:00] VITALS: BP 118/62
[2020-04-08] MEDS: D5W/SOD CHLO 0.9% 1,000 ML IV SCH (05:50)
[2020-04-08 06:23] LABS: Basophils # (auto) 0 10 ^3/uL (0-0.2); Basophils % (auto) 0.3 % (0.0-2.0); Eosinophils # (auto) 0.1 10 ^3/uL (0-0.8); Eosinophils % (auto) 2.1 % (0.0-7.0); Hematocrit 26.6 % (41.0-53.0); Hemoglobin 8.5 g/dL (13.5-17.5); Lymphocytes # (auto) 0.7 10 ^3/uL (0.4-5.4); Lymphocytes % (auto) 10.4 % (10.0-50.0); Mean Corpuscular Hgb Conc. 31.8 g/dL (32.0-36.0); Mean Corpuscular Volume 91.3 fL (80.0-100.0); Monocytes # (auto) 0.6 10 ^3/uL (0-1.3); Monocytes % (auto) 8.2 % (0.0-12.0); Neutrophils # (auto) 5.3 10 ^3/uL (1.6-8.6); Nucleated Red Blood Cells % 0.1 %; Platelet Count (auto) 385 10^3/uL (140-450); Red Blood Cells 2.91 10^6/uL (4.5-5.90); White Blood Cell 6.7 10^3/uL (4.4-10.8)
[2020-04-08 06:35] LABS: INR 1.05 (0.9-1.15); Partial Thromboplastin Time 30.5 sec (23.0-31.2)
--- NOTE | 2020-04-08 06:38 | NUR ---
Wound dressing changed per wound care recommendation. Linens changed, maintained on NPO, for Lithotripsy today
[2020-04-08 07:10] LABS: Potassium 3.8 mmol/L (3.5-5.1)
[2020-04-08 07:18] LABS: Albumin 1.8 g/dL (3.4-5.0); BUN/Creatinine Ratio 13.6; Bilirubin, Total 0.2 mg/dL (0.2-1.0); Calcium 7.9 mg/dL (8.5-10.1); Total Protein 5.5 g/dL (6.4-8.2)
--- NOTE | 2020-04-08 07:33 | NUR ---
SPOKE TO DENAE IN PRE OP TO SEE IF PATIENT WAS ON LIST TODAY FOR LITHOTRIPSY. SHE SAID NO AND THEY DON'T HAVE THE MACHINE BUT DR TOLENTINO WAS GOING TO DO ONE ON SUNDAY OUTPATIENT BUT NOT SURE FOR WHICH PATIENT. I INFORMED THE PATIENT THAT HE IS NOT ON THE SCHEDULE FOR TODAY.
--- NOTE | 2020-04-08 07:53 | NUR ---
SPOKE TO DR TOLENTINO HE SAID PATIENT IS ON THE SCHEDULE FOR SUNDAY. PATIENT TO BE NPO AFTER MIDNIGHT ON SUNDAY NIGHT AND TO BE AT OR 6 A.M. MAY DISCHARGE HOME TODAY WITH WERNER.
[2020-04-08 09:12] VITALS: BP 153/70
[2020-04-08] MEDS: ENOXAPARIN SOD 30 MG/0.3 ML SYRINGE SC SCH (10:00)
[2020-04-08] MEDS ORDERED: NIFEdipine ER 30 MG TAB PO SCH (10:00)
[2020-04-08] MEDS: CITALOPRAM HYDROBR 20 MG TAB PO SCH (10:03)
[2020-04-08] MEDS: PANTOPRAZOLE 40 MG/10 ML VIAL INJ IV SCH (10:04)
[2020-04-08] MEDS: MUPIROCIN 2% OINT 15gm or 22gm EACHNOSTRI SCH (10:05)
[2020-04-08] MEDS: MEROPENEM 1GM IVPB 100 ML IV SCH (10:05)
[2020-04-08] MEDS ORDERED: LEVO750T8 PO (12:06)
[2020-04-08] MEDS ORDERED: TAM04C PO (12:06)
[2020-04-08] MEDS ORDERED: AMPI500C8 PO (12:06)
--- NOTE | 2020-04-08 12:37 | NUR ---
REFUSED WOUND CARE AND DISCHARGE PHOTOS. HE SAID HE IS GOING TO DO WOUND CARE WHEN HE GETS HOME AND SHOWERS. HE ALSO REFUSED INSULIN FOR BLOOD SUGAR 149.
[2020-04-08 12:49] VITALS: BP 114/72
--- NOTE | 2020-04-08 13:53 | NUR ---
Discharge instructions given as ordered. Encourage to follow up with PMD as instructed. All questions and concerns addressed. Patient verbalized understanding. Medication reconciliation form completed and copy given to patient. IV removed with catheter intact, pressure dressing applied . Telemetry unit returned to ICU. Patient taken to vehicle via wheelchair with all personal belongings, accompanied by staff and family member. No distress noted at time of departure. FOLLOW UP APPOINTMENT MADE WITH DR LEY ON 04/16/20 AT 2:45 LOCATED AT [address] [place], [place] [id number] EXT [phone].
--- NOTE | 2020-04-08 16:15 | NUR ---
Assessment Patient is a 74-year-old male who is alert and oriented. Prior to admission patient lived with family and functioned independently. Patient can care for his own ADLs. Patient informed me he does not have any medical equipment and does not need any now. Per patient he will return to his prior living arrangements post discharge and family will transport patient home. Advised patient there is a Social Service consult for home health wound care, kenney care, and nephrostomy care. Per patient he has been receiving wound care and physical therapy as an outpatient at [facility] three times a week address: [address] [place] [address]. [address] [facility] [address] and would like to continue going to facility as an outpatient. Patient informed me he will care for his own Kenney care and nephrostomy care and will follow up with primary doctor. Informed patient I will notify provider. Informed patient he has the right to participate in all discharge planning. Patient verbalized understanding and agreed to discharge plan home.
== END 2020-04-08 13:50 | disposition home health service (06) | DRG 871 ==
LOC: ER 08:15 → TELE 08:16 → TELE-CENTR 19:30
PROVIDERS: ATTEND Internal Medicine
PROC: 0T9330Z Drainage of Right Kidney Pelvis with Drainage Device, Percutaneous Approach (ICD-10-PCS; principal; 2020-04-05)
PROC: 30233N1 Transfusion of Nonautologous Red Blood Cells into Peripheral Vein, Percutaneous Approach (ICD-10-PCS; 2020-04-05)
PROC: BT1D1ZZ Fluoroscopy of Right Kidney, Ureter and Bladder using Low Osmolar Contrast (ICD-10-PCS; 2020-04-05)
DX: A41.9 Sepsis, unspecified organism (principal); E43 Unspecified severe protein-calorie malnutrition; N13.6 Pyonephrosis; L03.311 Cellulitis of abdominal wall; N17.9 Acute kidney failure, unspecified; N18.4 Chronic kidney disease, stage 4 (severe); D64.9 Anemia, unspecified; D89.9 Disorder involving the immune mechanism, unspecified; E11.22 Type 2 diabetes mellitus with diabetic chronic kidney disease; E11.65 Type 2 diabetes mellitus with hyperglycemia; E78.5 Hyperlipidemia, unspecified; F41.9 Anxiety disorder, unspecified; I70.8 Atherosclerosis of other arteries; K57.30 Diverticulosis of large intestine without perforation or abscess without bleeding; R56.9 Unspecified convulsions; Z79.899 Other long term (current) drug therapy; Z80.1 Family history of malignant neoplasm of trachea, bronchus and lung; Z82.5 Family history of asthma and other chronic lower respiratory diseases; Z87.11 Personal history of peptic ulcer disease; Z87.442 Personal history of urinary calculi; Z93.6 Other artificial openings of urinary tract status; Z83.6 Family history of other diseases of the respiratory system; Z79.4 Long term (current) use of insulin; Z79.84 Long term (current) use of oral hypoglycemic drugs; I12.9 Hypertensive chronic kidney disease with stage 1 through stage 4 chronic kidney disease, or unspecified chronic kidney disease
CPT/HCPCS: 36415; 50432; 71045; 74018; 74176; 76942; 80048; 80053; 80061; 81001; 82962; 83036; 83605; 84484; 85025; 85610; 85730; 86850; 86900; 86901; 86920; 87040; 87077; 87081; 87086; 87186; 87205; 87426; 93005; 96361; 96365; 96375; 99152; C1729; C9113; G0378; J0696; J1815; J1885; J2185; J2250; J2543; J2704; J3490; J7042

== ENCOUNTER → 2020-04-02 | Outpatient (CLI) | payer BC ==
[~2020-04-02] MED LIST changes: +CANA100T PO; +CITA10TA70 PO; +CYAN100T7 PO; +FERR-7 PO; +LISI-646 PO; -METF-370 PO; +MULT-928 PO; +PANT40TA2 PO
[2020-04-02 07:56] LABS: Eosinophils # (auto) 0 10 ^3/uL (0-0.8); Eosinophils % (auto) 0.1 % (0.0-7.0); Monocytes # (auto) 0.5 10 ^3/uL (0-1.3)
[2020-04-02 07:59] LABS: Basophils # (auto) 0 10 ^3/uL (0-0.2); Basophils % (auto) 0.2 % (0.0-2.0); Hematocrit 29.4 % (41.0-53.0); Hemoglobin 9.4 g/dL (13.5-17.5); Lymphocytes # (auto) 0.6 10 ^3/uL (0.4-5.4); Lymphocytes % (auto) 3.7 % (10.0-50.0); Mean Corpuscular Hemoglobin 29.6 pg (28.0-32.0); Mean Corpuscular Volume 92.5 fL (80.0-100.0); Monocytes % (auto) 3.2 % (0.0-12.0); Neutrophils % (auto) 92.8 % (37.0-80.0); Platelet Count (auto) 504 10^3/uL (140-450); Red Blood Cells 3.18 10^6/uL (4.5-5.90); Red Cell Distribution Width 18.9 % (11.8-14.3); White Blood Cell 15.1 10^3/uL (4.4-10.8)
[2020-04-02 08:27] LABS: Potassium 4.4 mmol/L (3.5-5.1)
[2020-04-02 08:36] LABS: Albumin 2.3 g/dL (3.4-5.0); BUN/Creatinine Ratio 12.2; Bilirubin, Total 0.2 mg/dL (0.2-1.0); Calcium 8.7 mg/dL (8.5-10.1)
== END | disposition home or self-care (01) ==
LOC: LAB 07:38
PROVIDERS: ATTEND Nurse Practitioner
DX: D64.9 Anemia, unspecified (principal)
CPT/HCPCS: 36415; 80053; 85025

== ENCOUNTER 2020-04-12 08:50 | Day surgery (SDC) | payer BC ==
[~2020-04-12] VITALS: Ht 177.8 cm; Wt 54.4 kg
[~2020-04-12 08:50] MED LIST changes: +AMPI500C8 PO; +LEVO750T8 PO; +PANT40TA2 PO; +TAM04C PO
[2020-04-12] MEDS ORDERED: ceFAZolin 1GM/50ML 50 ML IV ONE ×2 (10:11→10:54)
[2020-04-12] MEDS ORDERED: MEPERIDINE HCL (25 MG/ML) 1ML VIAL ONE (11:34)
[2020-04-12] MEDS ORDERED: MIDAZOLAM HCL 1MG/1ML-2 ML VIAL ONE (11:34)
[2020-04-12] MEDS ORDERED: fentaNYL CITRATE 100 MCG/2 ML VL ONE (11:34)
[2020-04-12] MEDS ORDERED: PROPOFOL 10 MG/ML 20 ML IV ONE (12:23)
[2020-04-12] MEDS ORDERED: DexAMETHasone SOD PHOS 10MG/1ML VIAL INJ ONE (12:23)
[2020-04-12] MEDS ORDERED: MIDAZOLAM HCL 1MG/1ML-2 ML VIAL IV PRN (12:45)
[2020-04-12] MEDS ORDERED: LABETALOL HCL 5 MG/ML 4ML SYRINGE IV PRN (12:45)
[2020-04-12] MEDS ORDERED: MORPHINE SULFATE 4 MG/ML SYR/VIAL IV PRN (12:45)
[2020-04-12] MEDS ORDERED: ONDANSETRON HCL 4 MG/2 ML VIAL IV PRN (12:45)
[2020-04-12] MEDS ORDERED: HYDROmorphone HCL 2 MG/ML VL IV PRN (12:45)
[2020-04-12] MEDS ORDERED: ACCU-CHEK COMFORT CURVE STRIP VI ONE (12:45)
[2020-04-12] MEDS ORDERED: ePHEDrine SULFATE 50 MG/ML AMP IV PRN (12:45)
[2020-04-12 13:25] VITALS: BP 154/63
[2020-04-12] MEDS ORDERED: IOHEXOL 300 MG/ML 100ML BOTTLE IJ ONE (13:52)
== END 2020-04-12 13:35 | disposition home or self-care (01) ==
LOC: SUR 08:50
PROVIDERS: ATTEND Urology
DX: N20.1 Calculus of ureter (principal); N13.0 Hydronephrosis with ureteropelvic junction obstruction; F41.9 Anxiety disorder, unspecified; I48.91 Unspecified atrial fibrillation; E11.22 Type 2 diabetes mellitus with diabetic chronic kidney disease; I12.9 Hypertensive chronic kidney disease with stage 1 through stage 4 chronic kidney disease, or unspecified chronic kidney disease; N18.3 Chronic kidney disease, stage 3 (moderate); Z79.899 Other long term (current) drug therapy; Z98.890 Other specified postprocedural states
CPT/HCPCS: 50430; 50590; 82962; J0690; J1100; J2175; J2250; J2704; J3010; Q9967

== ENCOUNTER 2020-04-13 19:22 | Inpatient (IN) | payer BC ==
[~2020-04-13] VITALS: Ht 167.6 cm; Wt 82.0 kg
[2020-04-13 20:51] LABS: Hematocrit 14.8 % (41.0-53.0); Mean Corpuscular Hemoglobin 30.7 pg (28.0-32.0); Mean Corpuscular Hgb Conc. 32.4 g/dL (32.0-36.0); Mean Corpuscular Volume 94.5 fL (80.0-100.0); Platelet Count (auto) 397 10^3/uL (140-450); Red Blood Cells 1.57 10^6/uL (4.5-5.90); Red Cell Distribution Width 18.6 % (11.8-14.3); White Blood Cell 17.7 10^3/uL (4.4-10.8)
[2020-04-13 21:02] LABS: Lactic Acid w/Reflex 4.2 mmol/L (0.4-2.0)
[2020-04-13 21:04] LABS: Anion Gap 9 (5-15); Blood Urea Nitrogen 57 mg/dL (7-18); Calcium 7.3 mg/dL (8.5-10.1); Carbon Dioxide 17 mmol/L (21-32); Chloride 113 mmol/L (98-107); Glucose 269 mg/dL (74-106); Hemoglobin 4.8 g/dL (13.5-17.5); Potassium 4.5 mmol/L (3.5-5.1); Sodium 139 mmol/L (136-145)
[2020-04-13 21:05] LABS: Basophils % (manual) 0 (0.0-2.0); Blast Cells 0; Myelocytes % 0; Promyelocytes % 0; Reactive Lymphocytes 0
[2020-04-13 21:06] LABS: INR 1.08 (0.9-1.15); Partial Thromboplastin Time 26.9 sec (23.0-31.2)
[2020-04-13 21:10] LABS: Alanine Aminotransferase 10 U/L (16-61); Alkaline Phosphatase 67 U/L (45-117); Aspartate Aminotransferase 8 U/L (15-37); BUN/Creatinine Ratio 24.1; Bilirubin, Total 0.1 mg/dL (0.2-1.0); GFR African American 35 mL/min; GFR Non-African American 29 mL/min
[2020-04-13] MEDS ORDERED: SODIUM CHLORIDE 0.9% 1,000 ML IV ONE (21:15)
[2020-04-13 21:37] LABS: Band Neutrophils % (manual) 2; Lymphocytes % (manual) 6 (10.0-50.0)
[2020-04-13 21:38] LABS: Eosinophils % (manual) 1 (0-7); Metamyelocytes % 1; Monocytes % (manual) 5 (0-12)
[2020-04-13 22:18] LABS: Urine Bacteria FEW /hpf (None Seen); Urine Blood 2+ /uL (Negative); Urine Budding Yeast LOADED /hpf (None Seen); Urine Hyaline Cast FEW /lpf (0 - 2); Urine Specific Gravity 1.015 (1.001-1.035); Urine WBC 82 /hpf (0 - 3)
[2020-04-13] MEDS ORDERED: PIPERACILLIN-TAZOB 3.375GM 100 ML IV ONE (22:30)
[2020-04-14] VITALS (14 sets, daily range): BP systolic 110–153; BP diastolic 46–82
[2020-04-14] MEDS ORDERED: VANCOMYCIN 1GM/250ML 250 ML IV ONE (02:15)
[2020-04-14] MEDS ORDERED: DEXTROSE (50%) 50ML SYRG IV PRN (02:45)
[2020-04-14] MEDS ORDERED: MORPHINE SULF INJ 2 MG/ML SYRINGE 1ML IV PRN (02:45)
[2020-04-14] MEDS ORDERED: ONDANSETRON HCL 4 MG/2 ML VIAL IV PRN (02:45)
[2020-04-14] MEDS ORDERED: VANCOMYCIN PER PHARMACY 0 MG IV SCH (02:45)
[2020-04-14] MEDS ORDERED: TEMAZEPAM 15 MG CAP PO PRN (02:45)
[2020-04-14] MEDS ORDERED: NITROGLYCERIN 0.4 MG SL TAB SL PRN (02:45)
[2020-04-14] MEDS: PIPERACILLIN-TAZOB 2.25GM 50 ML IV SCH ×3 (06:00→17:35)
[2020-04-14] MEDS: InsuLIN REG 1unit/0.01ml Soln (100units/ml) SC SCH ×3 (06:00→17:35)
[2020-04-14] MEDS: ACCU-CHEK COMFORT CURVE STRIP VI SCH ×3 (06:00→17:35)
--- NOTE | 2020-04-14 07:00 | NUR ---
Opening Shift Note Assumed care of patient, awake and alert. No S/S of distress/SOB or pain. Instructed on POC and to call for assist PRN, will continue to monitor for changes Q1hr and PRN.
--- NOTE | 2020-04-14 07:05 | NUR ---
PATIENT HAD MELENA IN STOOL THIS IS THE FIRST TIME PATIENT HAS HAD MELENA WITH BOWEL MOVEMENT. WILL NOTIFY .
--- NOTE | 2020-04-14 07:56 | NUR ---
Blood Transfusion The first unit of blood ran a little late due to the bag filling with NS. When the patient was transferred from the ER stretcher to the bed in the room the blood bag was left at a lower position than the NS bag and filled about 200ml before it was discovered. Rather than waste the blood ran it at a longer time period. 2nd unit to be started by day shift.
--- NOTE | 2020-04-14 09:03 | NUR ---
TRANSFUSION BLOOD TRANSFUSING
[2020-04-14] MEDS: PANTOPRAZOLE 40 MG/10 ML VIAL INJ IV SCH ×2 (09:17→21:44)
[2020-04-14] MEDS ORDERED: PANTOPRAZOLE 40 MG TAB PO SCH (10:00)
--- NOTE | 2020-04-14 10:30 | NUR ---
WOUND CARE NOTE: IN TO SEE PATIENT AT THIS TIME PER WOUND CARE CONSULT REQUEST. PATIENT WAS NOTED UPON ADMIT, TO HAVE MULTIPLE WOUNDS TO THE TRUNK, RIGHT UPPER THIGH. BEDSIDE NURSE PHOTOGRAPHED WOUNDS AT THAT TIME FOR REFERENCE, WOUND CONSULT ORDERED. PATIENT ADMITTED TO [facility] WITH DIAGNOSIS OF SEPSIS. PATIENT HAS CURRENT GIGI SCORE OF 15. PATIENT IS AMBULATORY AT HOME, CAN SELF TURN/REPOSITION SELF IN HOSPITAL BED. HE HAS A RIGHT NEPHROSTOMY TUBE PLACED RECENTLY. HE HAS GI CONSULT PENDING WITH DR. ALMEIDA FOR GI BLEED. PATIENT STATES THAT HE HAS MULITPLE CHRONIC WOUNDS THAT ARE NON HEALING/SLOW HEALING. PATIENT HAS HAD SOME OF THESE WOUNDS FOR MORE THAN ONE YEAR. PATIENT IS AWAITING AUTHORIZATION FROM HIS INSURANCE FOR FOLLOW UP OF THESE WOUNDS TO PLASTICS FOR SURGICAL INTERVENTION. WOUNDS AREA NOTED TO ABDOMEN (4), CHEST, RIGHT LOWER CHEST/BREAST, LOWER GROIN, RIGHT UPPER MEDIAL THIGH. ALL WOUNDS ARE OPEN WITH EXCEPTION OF RIGHT UPPER MEDIAL THIGH, THAT IS CLOSED/SCABBED. OPEN WOUNDS HAVE COLLAGEN SCARRING WITHIN WOUND BED AREAS, AND PALE RED OPEN FULL THICKNESS WOUND BED AREAS. OPEN WOUNDS ARE DRAINING LIGHT AMOUNTS OF SEROUS DRAINAGE. CLEANSED ALL WOUNDS WITH WOUND CLEANSER, APPLIED OPTIFOAM GENTLE DRESSINGS OR ABD PAD/MEDIPORE TAPE TO WOUNDS. ALL WOUNDS PHOTOGRAPHED AGAIN AT THIS TIME FOR REFERENCE. RECOMMEND: EOD/PRN DRESSING CHANGES TO ALL OPEN WOUNDS, SKIN/WOUND CARE PLAN, DIETARY CONSULT, FOLLOW UP WITH PLASTICS POST DISCHARGE, CONTINUED MONITORING BY WOUND CARE TEAM. Addendum: 04/14/20 at 1526 by Gissel Owusu RN Amended: Links added.
[2020-04-14] MEDS ORDERED: METOCLOPRAMIDE HCL 5MG/ml INJ 2ml VIAL IV ONE (13:15)
[2020-04-14] MEDS: SODIUM CHLORIDE 0.9% 1,000 ML IV SCH ×2 (13:18→15:34)
[2020-04-14 13:31] LABS: Hematocrit 16.8 % (41.0-53.0); Mean Corpuscular Hemoglobin 30.2 pg (28.0-32.0); Mean Corpuscular Hgb Conc. 33.9 g/dL (32.0-36.0); Mean Corpuscular Volume 88.9 fL (80.0-100.0); Platelet Count (auto) 252 10^3/uL (140-450); Red Blood Cells 1.88 10^6/uL (4.5-5.90); Red Cell Distribution Width 16.3 % (11.8-14.3)
[2020-04-14 13:37] LABS: Albumin 1.7 g/dL (3.4-5.0); Calcium 7.3 mg/dL (8.5-10.1); Magnesium 2.1 mg/dL (1.6-2.6); Potassium 4.4 mmol/L (3.5-5.1)
[2020-04-14 13:40] LABS: BUN/Creatinine Ratio 30.5; Bilirubin, Total 0.3 mg/dL (0.2-1.0); Hemoglobin 5.7 g/dL (13.5-17.5); Total Protein 4.3 g/dL (6.4-8.2)
[2020-04-14 13:41] LABS: Basophils % (manual) 0 (0.0-2.0); Blast Cells 0; Eosinophils % (manual) 0 (0-7); Promyelocytes % 0; Reactive Lymphocytes 0
--- NOTE | 2020-04-14 13:55 | NUR ---
NOTIFIED OF CRITICAL LABS
[2020-04-14 14:13] LABS: Band Neutrophils % (manual) 7; Lymphocytes % (manual) 11 (10.0-50.0); Metamyelocytes % 4; Monocytes % (manual) 4 (0-12); Myelocytes % 1
--- NOTE | 2020-04-14 14:16 | NUR ---
PATIENT HAD MELENA WITH BOWEL MOVEMENT. PATIENT HAD ESTIMATED 200 CC OF MELENA.
[2020-04-14] MEDS: SUCRALFATE 1 GM/10 ML ORAL SUSP PO SCH ×2 (17:35→21:43)
--- NOTE | 2020-04-14 20:42 | NUR ---
1st unit of PRBC hooked after verified by 2nd RN Hayley, will monitor for BT reaction
--- NOTE | 2020-04-14 23:43 | NUR ---
Blood transfusion done, flushed tubing with NS, no BT reaction noted
[2020-04-15] VITALS (13 sets, daily range): BP systolic 91–120; BP diastolic 43–55
[2020-04-15] MEDS: PIPERACILLIN-TAZOB 2.25GM 50 ML IV SCH ×5 (00:25→23:47)
[2020-04-15] MEDS: ACCU-CHEK COMFORT CURVE STRIP VI SCH ×5 (00:25→23:47)
[2020-04-15] MEDS: InsuLIN REG 1unit/0.01ml Soln (100units/ml) SC SCH ×4 (00:31→17:55)
--- NOTE | 2020-04-15 00:45 | NUR ---
Patient had a bowel movement of dark tarry stool, lines changed, will continue to monitor
[2020-04-15 00:53] LABS: Hematocrit 16.9 % (41.0-53.0)
[2020-04-15 01:15] LABS: Hemoglobin 5.7 g/dL (13.5-17.5)
--- NOTE | 2020-04-15 01:29 | NUR ---
2nd unit of PRBC hooked after verified by 2nd RN Tonya, will monitor for BT reaction
--- NOTE | 2020-04-15 04:32 | NUR ---
Blood transfusion done, flushed tubing with NS, no BT reaction noted
[2020-04-15] MEDS: SODIUM CHLORIDE 0.9% 1,000 ML IV SCH (06:54)
[2020-04-15] MEDS: SUCRALFATE 1 GM/10 ML ORAL SUSP PO SCH ×4 (06:54→21:57)
[2020-04-15 07:07] LABS: White Blood Cell 13.1 10^3/uL (4.4-10.8)
[2020-04-15 07:09] LABS: Mean Corpuscular Hemoglobin 30.6 pg (28.0-32.0); Mean Corpuscular Hgb Conc. 33.3 g/dL (32.0-36.0); Mean Corpuscular Volume 91.8 fL (80.0-100.0); Platelet Count (auto) 180 10^3/uL (140-450); Red Blood Cells 1.74 10^6/uL (4.5-5.90); Red Cell Distribution Width 16.8 % (11.8-14.3)
[2020-04-15 07:14] LABS: Hemoglobin 5.3 g/dL (13.5-17.5)
[2020-04-15 07:15] LABS: Basophils % (manual) 0 (0.0-2.0); Blast Cells 0; Metamyelocytes % 0; Promyelocytes % 0; Reactive Lymphocytes 0
[2020-04-15 07:24] LABS: Albumin 1.5 g/dL (3.4-5.0); Calcium 7.1 mg/dL (8.5-10.1); Potassium 4.7 mmol/L (3.5-5.1)
[2020-04-15 07:30] LABS: BUN/Creatinine Ratio 34.3; Bilirubin, Total 0.2 mg/dL (0.2-1.0); Total Protein 3.8 g/dL (6.4-8.2)
[2020-04-15 07:59] LABS: Band Neutrophils % (manual) 3; Eosinophils % (manual) 4 (0-7); Lymphocytes % (manual) 11 (10.0-50.0); Monocytes % (manual) 1 (0-12); Myelocytes % 2
--- NOTE | 2020-04-15 08:30 | NUR ---
PAGED Received call from blood bank stating blood orders specify "CMV negative", this type of blood is from outside hospital and will take 3 hours for delivery. O negative available in house. Dr Young paged to clarify orders.
--- NOTE | 2020-04-15 09:45 | NUR ---
Dr Sims gave orders to change blood to O negative. made aware of patients critical lab values and suggestion made for nephrology consult. Call placed to Valery at #[phone] to notify. O negative ordered, not available for pick and shovel man at this time. Valery will call RN once available.
[2020-04-15] MEDS: PANTOPRAZOLE 40 MG/10 ML VIAL INJ IV SCH ×2 (09:56→21:58)
[2020-04-15 10:13] LABS: Hematocrit 15.3 % (41.0-53.0)
[2020-04-15 10:53] LABS: Hemoglobin 4.9 g/dL (13.5-17.5)
--- NOTE | 2020-04-15 11:05 | NUR ---
GLASS FRAME FITTER rounding Gissel GLASS FRAME FITTER rounding on patient for consult. CT ordered. Gissel made aware patient transfusing blood at this time. Per Gissel if CT negative right nephrostomy tube will be d/c.
--- NOTE | 2020-04-15 11:15 | NUR ---
Installer Metal Flooring at bedside.
--- NOTE | 2020-04-15 14:47 | NUR ---
Nutrition Consult/assessment Notes please see attached link for complete assessment Est Energy needs BW 78 [id number] kcals (23-25 kcal/kgBW), Est Protein needs: 62-78 gms/day (0.8-1.0 gm/kgBW r/t elev RFT severe hypoalb). Will continue to monitor and reassess prn. Addendum: 04/15/20 at [address] Amended: Links added.
--- NOTE | 2020-04-15 16:15 | NUR ---
rounding Dr Michael rounding on patient for nephrology consult. MD will enter orders.
--- NOTE | 2020-04-15 16:21 | NUR ---
OFF UNIT Patient left unit via bed with two staff members for CT scan. No distress noted at time of transfer.
[2020-04-15] MEDS: SODIUM BICARBONATE 50ML VIAL 50 ML in SOD CHL 0.45% 1,000 ML IV SCH (20:04)
[2020-04-15 21:30] LABS: Hematocrit 21.3 % (41.0-53.0); Hemoglobin 7.1 g/dL (13.5-17.5)
[2020-04-16] VITALS (15 sets, daily range): BP systolic 101–196; BP diastolic 45–83
[2020-04-16] MEDS: InsuLIN REG 1unit/0.01ml Soln (100units/ml) SC SCH ×4 (00:33→18:48)
[2020-04-16 01:08] LABS: Hematocrit 19.6 % (41.0-53.0)
[2020-04-16 01:10] LABS: Hemoglobin 6.6 g/dL (13.5-17.5)
--- NOTE | 2020-04-16 01:15 | NUR ---
Received a critical Hgb of 6.6, will page hospitalist
--- NOTE | 2020-04-16 01:19 | NUR ---
Spoke to hospitalist He and updated on patient's status and critical Hgb. Received order for transfusion of 2 units PRBC
[2020-04-16] MEDS: SODIUM BICARBONATE 50ML VIAL 50 ML in SOD CHL 0.45% 1,000 ML IV SCH (02:45)
--- NOTE | 2020-04-16 03:05 | NUR ---
1st unit of PRBC hooked after verified by 2nd RN Aman, will monitor for BT reaction
--- NOTE | 2020-04-16 05:40 | NUR ---
Blood transfusion done, no BT reaction noted
--- NOTE | 2020-04-16 06:07 | NUR ---
2nd unit of PRBC hooked after verified by 2nd RN Hayley, will monitor for BT reaction
[2020-04-16] MEDS: PIPERACILLIN-TAZOB 2.25GM 50 ML IV SCH ×3 (06:10→18:00)
[2020-04-16] MEDS: ACCU-CHEK COMFORT CURVE STRIP VI SCH ×3 (06:10→18:49)
[2020-04-16] MEDS: SUCRALFATE 1 GM/10 ML ORAL SUSP PO SCH ×4 (06:10→21:24)
--- NOTE | 2020-04-16 07:30 | NUR ---
Opening Shift Note Assumed patient care from NOC RN. Patient currently laying supine in bed, no signs of distress noted at this time. Patient is currently running one unit of PRBCs at 120ml/hr. Safety precautions in place, no signs of distress at this time. Will continue to monitor.
[2020-04-16] MEDS: SODIUM BICARBONATE 50ML VIAL 50 ML in D5W 5% 1,000 ML IV SCH ×3 (09:30→20:00)
[2020-04-16] MEDS: PANTOPRAZOLE 40 MG/10 ML VIAL INJ IV SCH ×2 (09:47→21:24)
--- NOTE | 2020-04-16 10:19 | NUR ---
at Bedside Dr. Sims at bedside. New orders received at this time.
[2020-04-16 11:08] LABS: Hematocrit 23.1 % (41.0-53.0); Hemoglobin 7.7 g/dL (13.5-17.5)
[2020-04-16 11:10] LABS: Mean Corpuscular Hemoglobin 29.6 pg (28.0-32.0); Mean Corpuscular Hgb Conc. 33.4 g/dL (32.0-36.0); Mean Corpuscular Volume 88.7 fL (80.0-100.0); Platelet Count (auto) 120 10^3/uL (140-450); Red Blood Cells 2.61 10^6/uL (4.5-5.90); Red Cell Distribution Width 15.5 % (11.8-14.3)
--- NOTE | 2020-04-16 11:15 | NUR ---
MD at Bedside. Urology at bedside. Nephrostomy tube removed. Patient tolerated well, no signs of distress at this time.
[2020-04-16 11:17] LABS: Basophils % (manual) 0 (0.0-2.0); Blast Cells 0; Metamyelocytes % 0; Promyelocytes % 0; Reactive Lymphocytes 0
[2020-04-16 11:32] LABS: Albumin 1.4 g/dL (3.4-5.0); Calcium 7.2 mg/dL (8.5-10.1); Potassium 4.8 mmol/L (3.5-5.1)
[2020-04-16 11:36] LABS: BUN/Creatinine Ratio 37.4; Bilirubin, Total 0.5 mg/dL (0.2-1.0); Total Protein 3.5 g/dL (6.4-8.2)
--- NOTE | 2020-04-16 12:10 | NUR ---
Critical Lab Value Dr. Michael aware of BUN.
[2020-04-16 12:41] LABS: Band Neutrophils % (manual) 1; Eosinophils % (manual) 2 (0-7); Lymphocytes % (manual) 6 (10.0-50.0); Monocytes % (manual) 4 (0-12); Myelocytes % 2
--- NOTE | 2020-04-16 14:55 | NUR ---
Midline Placement: Patient educated on need for midline placement. All risks and benefits explained and all questions and concerns addresses prior to procedure. 18g/8cm midline inserted via right brachial vein using Ultrasound. Sterile technique utilized. Blood return obtained from the single lumen and flushed easily with NS using proper technique. Midline secured with saline lock; biodisc and occlusive dressing applied. Primary RN notified. Midline lot # [id number]
--- NOTE | 2020-04-16 14:58 | NUR ---
assessment Patient is a 74 year old male who is alert and oriented. Patients cognitive abilities are intact. Prior to admission patient lived home with his Lynne and functioned independently. Patient informed me he is able to care for his own ADLs. Per patient he will return home to his prior living arrangements post discharge and family will transport him home. Patient informed me he came back to ER due to weakness and abdominal pain. Patient informed me he feels safe returning home on discharge. Patient will continue outpatient wound care at physical therapy on discharge. I informed patient he has a right to speak to a social services regarding all care. I informed patient he has a right to participate in any and all discharge planning. Patient does not have a POA and advanced directive. I have offered patient information on POA and advanced directives. I informed the patient the advantages and benefits of having an Advanced Directive. Patient verbalized understanding and agreed to discharge plan. Addendum: 04/16/20 at 1501 by Maria Luisa FELDMAN Amended: Links added.
--- NOTE | 2020-04-16 15:00 | NUR ---
Called PreOp Spoke with Melinda in pre-op. Per Melinda, plan to take patient for EGD in one hour.
--- NOTE | 2020-04-16 15:01 | NUR ---
at Station Per Dr. Acevedo, hold second unit of blood until after EGD.
--- NOTE | 2020-04-16 16:05 | NUR ---
Patient Off Unit Patient off unit for EGD. No signs of distress at this time. Respirations even and unlabored.
[2020-04-16] MEDS ORDERED: LIDOCAINE VISCOUS 2% 15ML UD ONE (16:30)
[2020-04-16] MEDS ORDERED: SODIUM CHLORIDE LOCK 10 ML ONE (16:30)
[2020-04-16] MEDS ORDERED: fentaNYL CITRATE 100 MCG/2 ML VL ONE (16:31)
[2020-04-16] MEDS ORDERED: diphenhdrAMINE HCL 50 MG/1 ML VL ONE (16:31)
[2020-04-16] MEDS: MIDAZOLAM HCL 5 MG/ML-1ML VIAL ONE ×2 (16:35→16:36)
[2020-04-16] MEDS ORDERED: EPINEPHrine HCL 1 MG/1 ML AMP ONE (16:40)
[2020-04-16] MEDS ORDERED: EPINEPHrine HCL 1 MG/10 ML SYRG ONE (16:42)
[2020-04-16] MEDS ORDERED: ONDANSETRON HCL 4 MG/2 ML VIAL ONE (17:17)
[2020-04-16] MEDS ORDERED: ONDANSETRON HCL 4 MG/2 ML VIAL IV ONE (17:30)
--- NOTE | 2020-04-16 18:32 | NUR ---
Patient Returned Patient returned to unit. Per CLINICAL REVIEW NURSE, Dr. Acevedo aware of patient's blood pressure, no orders at this time, continue to monitor patient's blood pressure.
[2020-04-16 18:37] LABS: Hematocrit 24.6 % (41.0-53.0); Hemoglobin 8.2 g/dL (13.5-17.5)
--- NOTE | 2020-04-16 18:52 | NUR ---
Hospitalist Called Received call back from Dr. Josue. aware of patient's blood pressure and recent procedure. Per , will order PRN blood pressure medication, continue with blood infusion at this time. Addendum: 04/16/20 at 1900 by LYNDA BA RN RN aware of orders for 1 unit of PRBCs.
[2020-04-16] MEDS ORDERED: hydrALAZINE HCL 25 MG TAB PO PRN (19:15)
--- NOTE | 2020-04-16 19:30 | NUR ---
Closing Note Report given to CECY RINCON. Endorsed blood transfusion. SERGEY aware of current blood pressure and pending orders. Addendum: 04/17/20 at 0749 by LYNDA BA RN RN Milla Acevedo regarding pending orders
[2020-04-17] VITALS (17 sets, daily range): BP systolic 104–165; BP diastolic 47–98
[2020-04-17] MEDS: ACCU-CHEK COMFORT CURVE STRIP VI SCH ×5 (00:16→23:22)
[2020-04-17] MEDS: PIPERACILLIN-TAZOB 2.25GM 50 ML IV SCH ×5 (00:16→23:23)
[2020-04-17 01:41] LABS: Hematocrit 18.1 % (41.0-53.0)
[2020-04-17 01:44] LABS: Hemoglobin 6.2 g/dL (13.5-17.5)
[2020-04-17] MEDS: InsuLIN REG 1unit/0.01ml Soln (100units/ml) SC SCH ×5 (06:24→23:23)
[2020-04-17] MEDS: SODIUM BICARBONATE 50ML VIAL 50 ML in D5W 5% 1,000 ML IV SCH ×2 (06:30→18:03)
--- NOTE | 2020-04-17 07:08 | NUR ---
pAGED dR. Pineda ABOUT pROTONIX DRIP.
--- NOTE | 2020-04-17 07:30 | NUR ---
Opening Shift Note Assumed patient care from NOC RN. No signs of distress at this time. Safety precautions in place, will continue to monitor q1hr and PRN.
--- NOTE | 2020-04-17 07:49 | NUR ---
Called Left message with Dr. Acevedo regarding order clarification.
[2020-04-17] MEDS: PANTOPRAZOLE 40 MG/10 ML VIAL INJ IV SCH (10:01)
[2020-04-17] MEDS ORDERED: LABETALOL HCL 5 MG/ML 4ML SYRINGE IV PRN (10:30)
[2020-04-17] MEDS: SUCRALFATE 1 GM/10 ML ORAL SUSP PO SCH ×4 (11:30→23:00)
[2020-04-17 13:24] LABS: Hematocrit 28.5 % (41.0-53.0); Hemoglobin 9.8 g/dL (13.5-17.5); Mean Corpuscular Hemoglobin 30.8 pg (28.0-32.0); Mean Corpuscular Hgb Conc. 34.4 g/dL (32.0-36.0); Mean Corpuscular Volume 89.5 fL (80.0-100.0); Platelet Count (auto) 140 10^3/uL (140-450); Red Blood Cells 3.18 10^6/uL (4.5-5.90); White Blood Cell 14.5 10^3/uL (4.4-10.8)
[2020-04-17 13:28] LABS: Basophils % (manual) 0 (0.0-2.0); Blast Cells 0; Metamyelocytes % 0; Myelocytes % 0; Promyelocytes % 0; Reactive Lymphocytes 0
[2020-04-17 13:42] LABS: Albumin 1.6 g/dL (3.4-5.0); Calcium 7.4 mg/dL (8.5-10.1); Potassium 4.8 mmol/L (3.5-5.1)
[2020-04-17 13:45] LABS: BUN/Creatinine Ratio 42.4; Bilirubin, Total 0.8 mg/dL (0.2-1.0); Total Protein 3.8 g/dL (6.4-8.2)
[2020-04-17 14:09] LABS: Band Neutrophils % (manual) 3; Eosinophils % (manual) 1 (0-7); Lymphocytes % (manual) 5 (10.0-50.0); Monocytes % (manual) 2 (0-12)
[2020-04-17] MEDS: LABETALOL HCL 5 MG/ML 4ML SYRINGE IV PRN (14:19)
--- NOTE | 2020-04-17 15:20 | NUR ---
at Station Dr. Menezes at station. aware of patient blood pressure. New orders received.
--- NOTE | 2020-04-17 16:24 | NUR ---
Paged Paged Dr. Verdugo.
--- NOTE | 2020-04-17 16:31 | NUR ---
Milla WATTS Pagekalpana Acevedo regarding clarification of orders.
[2020-04-17] MEDS ORDERED: cloNIDine 0.1 mg/24hr 7 DAY PATCH TD SCH (17:00)
--- NOTE | 2020-04-17 17:00 | NUR ---
Received return call from Dr. Javier Acevedo. Per MD, proceed with Protonix drip at 8mg/hr for 24hours, patient to be advanced to clear liquid diet, H/H tonight after one more unit of plasma (if H/H less than 7, administer 1 more unit of PRBCs), CBC in AM. MD to see patient tomorrow.
--- NOTE | 2020-04-17 17:03 | NUR ---
MD Dr. Verdugo returned call. aware of patient's head ache, new orders received.
[2020-04-17] MEDS ORDERED: HYDROcodone-ACET 5/325MG TAB PO ONE (17:45)
[2020-04-17] MEDS: PANTOPRAZOLE 40mg/50ML NS AE 50 ML IV SCH ×2 (18:07→23:03)
--- NOTE | 2020-04-17 18:57 | NUR ---
IV Discontinued Left AC IV discontinued. Pulled out by patient upon reaching for his water. Catheter intact. Pressure dressing applied. Will continue to monitor.
--- NOTE | 2020-04-17 19:45 | NUR ---
Closing Shift Note Endorsed care to NOC RN. NOC RN made aware of Dr. Acevedo orders.
--- NOTE | 2020-04-17 21:58 | NUR ---
plasma done, flushed tubing with NS, no reaction noted
[2020-04-18 00:58] LABS: Hematocrit 25.4 % (41.0-53.0)
[2020-04-18] MEDS: ACETAMINOPHEN 325 MG TAB PO PRN ×2 (01:09→09:41)
--- NOTE | 2020-04-18 01:58 | NUR ---
DRESSING CHANGE DRESSING CHANGE DONE AT THIS TIME PER MD ORDER PURULENT FLUID NOTED ON OLD UPPER CHEST DRESSING AND SANGUINEOUS FLUID NOTED ON ABDOMINAL OLD DRESSING. NO ODOR NOTED . PT TOLERATED WELL
[2020-04-18] MEDS: SODIUM BICARBONATE 50ML VIAL 50 ML in D5W 5% 1,000 ML IV SCH ×2 (03:30→16:24)
[2020-04-18 05:02] LABS: Basophils # (auto) 0.1 10 ^3/uL (0-0.2); Basophils % (auto) 0.6 % (0.0-2.0); Eosinophils # (auto) 0.3 10 ^3/uL (0-0.8); Eosinophils % (auto) 3.1 % (0.0-7.0); Hematocrit 24.8 % (41.0-53.0); Hemoglobin 8.6 g/dL (13.5-17.5); Lymphocytes # (auto) 0.8 10 ^3/uL (0.4-5.4); Lymphocytes % (auto) 9.1 % (10.0-50.0); Mean Corpuscular Hemoglobin 31.3 pg (28.0-32.0); Mean Corpuscular Hgb Conc. 34.7 g/dL (32.0-36.0); Mean Corpuscular Volume 90.2 fL (80.0-100.0); Monocytes # (auto) 0.5 10 ^3/uL (0-1.3); Monocytes % (auto) 5.1 % (0.0-12.0); Neutrophils # (auto) 7.6 10 ^3/uL (1.6-8.6); Neutrophils % (auto) 82.1 % (37.0-80.0); Nucleated Red Blood Cells % 0.1 %; Platelet Count (auto) 144 10^3/uL (140-450); Red Blood Cells 2.76 10^6/uL (4.5-5.90); Red Cell Distribution Width 15.5 % (11.8-14.3); White Blood Cell 9.3 10^3/uL (4.4-10.8)
[2020-04-18 05:19] LABS: INR 1.04 (0.9-1.15); Partial Thromboplastin Time 24.7 sec (23.0-31.2)
[2020-04-18 05:27] LABS: Potassium 3.8 mmol/L (3.5-5.1)
[2020-04-18 05:30] VITALS: BP 128/54
[2020-04-18 05:34] LABS: Albumin 1.7 g/dL (3.4-5.0); BUN/Creatinine Ratio 39.3; Bilirubin, Total 1.1 mg/dL (0.2-1.0); Calcium 7.4 mg/dL (8.5-10.1)
[2020-04-18] MEDS: InsuLIN REG 1unit/0.01ml Soln (100units/ml) SC SCH ×3 (05:45→23:09)
[2020-04-18] MEDS: ACCU-CHEK COMFORT CURVE STRIP VI SCH ×4 (05:45→23:15)
[2020-04-18] MEDS: PIPERACILLIN-TAZOB 2.25GM 50 ML IV SCH ×4 (05:46→23:15)
[2020-04-18] MEDS: PANTOPRAZOLE 40mg/50ML NS AE 50 ML IV SCH ×2 (05:46→13:51)
[2020-04-18] MEDS: SUCRALFATE 1 GM/10 ML ORAL SUSP PO SCH ×4 (05:49→22:37)
--- NOTE | 2020-04-18 06:43 | NUR ---
end of shift noted will endorse pt care to day shift RN . pt is a0x4, no s/s of distress or sob
[2020-04-18 09:00] VITALS: BP 145/51
--- NOTE | 2020-04-18 10:30 | NUR ---
Nutrition Followup Note Wt 81.4 kg Pt was sleeping at time of rounds. pt with GI bleed due to duodenal ulcer. pt is currently on clear liq diet with inadequate PO of 50% x 3 per RN doc Est Energy needs BW 78 [id number] kcals (23-25 kcal/kgBW), Est Protein needs: 62-78 gms/day (0.8-1.0 gm/kgBW r/t elev RFT severe hypoalb). Will continue to monitor and reassess prn.. labs: CA 7.4 L, KIM 1.1 H ALB 1.7 L BUN 75 H CREAT 1.91 H GLU 130 H BM: pt with 1 BM today per RN note Skin: BS 19 low risk, wound on hand, full details in child care team lead note PES: Altered nutrition related lab values r/t current chronic medical condition aeb elev RFT hyperglycemia severe hypoalb Comments Will continue to monitor PO intake, skin status, pertinent labs and weight trends. Will f/u in 2-3 days. 1) advance diet as medically feasible. 2) consider prostat 1 packet bid as RFT improv. 3) refer to CDE on dc. 4) consider MVI/C bid 5) continue current plan of care
[2020-04-18 12:27] VITALS: BP 146/62
[2020-04-18] MEDS: Glucerna Carbsteady SHAKE Vanilla 8oz PO SCH ×2 (13:20→18:32)
[2020-04-18 16:36] VITALS: BP 142/54
[2020-04-18 18:31] LABS: Hematocrit 22.8 % (41.0-53.0); Hemoglobin 7.9 g/dL (13.5-17.5)
[2020-04-18 22:00] VITALS: BP 154/61
[2020-04-19] MEDS: ACETAMINOPHEN 325 MG TAB PO PRN ×2 (00:16→17:49)
[2020-04-19] MEDS: PANTOPRAZOLE 40mg/50ML NS AE 50 ML IV SCH ×4 (00:16→19:30)
[2020-04-19 00:29] LABS: Hematocrit 24.4 % (41.0-53.0); Hemoglobin 8.5 g/dL (13.5-17.5)
[2020-04-19] MEDS: SODIUM BICARBONATE 50ML VIAL 50 ML in D5W 5% 1,000 ML IV SCH ×3 (01:24→21:47)
[2020-04-19 05:00] VITALS: BP 138/48
[2020-04-19 05:03] LABS: Lymphocytes # (auto) 0.8 10 ^3/uL (0.4-5.4); Mean Corpuscular Volume 90.2 fL (80.0-100.0); White Blood Cell 7.6 10^3/uL (4.4-10.8)
[2020-04-19 05:04] LABS: Basophils # (auto) 0 10 ^3/uL (0-0.2); Basophils % (auto) 0.3 % (0.0-2.0); Eosinophils # (auto) 0.2 10 ^3/uL (0-0.8); Hematocrit 23.6 % (41.0-53.0); Hemoglobin 8.1 g/dL (13.5-17.5); Mean Corpuscular Hgb Conc. 34.3 g/dL (32.0-36.0); Monocytes # (auto) 0.6 10 ^3/uL (0-1.3); Monocytes % (auto) 7.3 % (0.0-12.0); Neutrophils % (auto) 78.4 % (37.0-80.0); Platelet Count (auto) 138 10^3/uL (140-450); Red Blood Cells 2.62 10^6/uL (4.5-5.90); Red Cell Distribution Width 15.2 % (11.8-14.3)
[2020-04-19 05:22] LABS: Albumin 1.6 g/dL (3.4-5.0); Calcium 7.3 mg/dL (8.5-10.1); Potassium 3.4 mmol/L (3.5-5.1)
[2020-04-19 05:27] LABS: Bilirubin, Total 0.8 mg/dL (0.2-1.0); Total Protein 3.9 g/dL (6.4-8.2)
[2020-04-19 05:28] LABS: BUN/Creatinine Ratio 27.7
[2020-04-19] MEDS: PIPERACILLIN-TAZOB 2.25GM 50 ML IV SCH ×3 (05:34→17:27)
[2020-04-19] MEDS: ACCU-CHEK COMFORT CURVE STRIP VI SCH ×3 (05:34→17:48)
[2020-04-19] MEDS: InsuLIN REG 1unit/0.01ml Soln (100units/ml) SC SCH ×3 (05:35→18:01)
[2020-04-19] MEDS: SUCRALFATE 1 GM/10 ML ORAL SUSP PO SCH ×4 (05:35→21:41)
--- NOTE | 2020-04-19 06:45 | NUR ---
end of shift noted will endorse pt care to day shift RN . pt is a0x4, no s/s of distress or sob
[2020-04-19 09:04] VITALS: BP 161/71
[2020-04-19] MEDS: Glucerna Carbsteady SHAKE Vanilla 8oz PO SCH ×3 (09:59→17:27)
[2020-04-19 14:00] VITALS: BP 152/62
[2020-04-19 17:14] VITALS: BP 162/69
[2020-04-19] MEDS: LABETALOL HCL 5 MG/ML 4ML SYRINGE IV PRN ×2 (17:49→18:15)
[2020-04-19 21:40] VITALS: BP 141/65
[2020-04-20] MEDS: PIPERACILLIN-TAZOB 2.25GM 50 ML IV SCH ×5 (00:29→23:33)
[2020-04-20] MEDS: ACCU-CHEK COMFORT CURVE STRIP VI SCH ×5 (00:44→23:33)
[2020-04-20] MEDS: InsuLIN REG 1unit/0.01ml Soln (100units/ml) SC SCH ×5 (00:45→23:39)
[2020-04-20] MEDS: ACETAMINOPHEN 325 MG TAB PO PRN ×2 (00:48→23:47)
[2020-04-20] MEDS: PANTOPRAZOLE 40mg/50ML NS AE 50 ML IV SCH ×2 (01:40→09:08)
[2020-04-20 04:54] LABS: Hemoglobin 7.5 g/dL (13.5-17.5); Monocytes # (auto) 0.5 10 ^3/uL (0-1.3)
[2020-04-20 04:56] LABS: Basophils # (auto) 0 10 ^3/uL (0-0.2); Basophils % (auto) 0.7 % (0.0-2.0); Eosinophils # (auto) 0.2 10 ^3/uL (0-0.8); Eosinophils % (auto) 2.3 % (0.0-7.0); Hematocrit 21.4 % (41.0-53.0); Lymphocytes # (auto) 0.8 10 ^3/uL (0.4-5.4); Lymphocytes % (auto) 10.9 % (10.0-50.0); Mean Corpuscular Hemoglobin 31.5 pg (28.0-32.0); Mean Corpuscular Hgb Conc. 34.9 g/dL (32.0-36.0); Mean Corpuscular Volume 90.2 fL (80.0-100.0); Monocytes % (auto) 6.9 % (0.0-12.0); Neutrophils # (auto) 5.5 10 ^3/uL (1.6-8.6); Neutrophils % (auto) 79.2 % (37.0-80.0); Platelet Count (auto) 152 10^3/uL (140-450); Red Blood Cells 2.38 10^6/uL (4.5-5.90); Red Cell Distribution Width 15.6 % (11.8-14.3); White Blood Cell 6.9 10^3/uL (4.4-10.8)
[2020-04-20 05:00] VITALS: BP 134/52
[2020-04-20 05:12] LABS: BUN/Creatinine Ratio 19.7; Calcium 6.9 mg/dL (8.5-10.1); Potassium 3.4 mmol/L (3.5-5.1)
[2020-04-20] MEDS: SUCRALFATE 1 GM/10 ML ORAL SUSP PO SCH ×4 (06:34→21:43)
[2020-04-20] MEDS: Glucerna Carbsteady SHAKE Vanilla 8oz PO SCH ×3 (08:00→18:00)
[2020-04-20] MEDS ORDERED: POTASSIUM CHLORIDE 40 MEQ, LIDOCAINE 1% (LOCAL ANESTH.) 4 ML in SODIUM CHL 0.9% 100 ML IV ONE (08:15)
[2020-04-20 09:00] VITALS: BP 157/64
[2020-04-20] MEDS: SODIUM BICARBONATE 50ML VIAL 50 ML in D5W 5% 1,000 ML IV SCH (09:07)
--- NOTE | 2020-04-20 11:04 | NUR ---
Nutrition Followup Note Wt 80.5 kg Pt was up, walking in room at time of rounds. Pt with GI bleed due to duodenal ulcer. Pt is currently with a Pureed diet with inadequate PO of ave 63% x 2 meals per RN doc. Pt reported his appetite is improved and he feels better although still not 100% feeling better. Pt requested Glucerna Shakes to supplement meals. Est Energy needs BW 78 [id number] kcals (23-25 kcal/kgBW), Est Protein needs: 62-78 gms/day (0.8-1.0 gm/kgBW r/t elev RFT severe hypoalb). Will continue to monitor and reassess prn.. 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 Will f/u in 2-3 days. 1) advance diet as medically feasible. 2) consider Prostat 1 packet bid as RFT improve. 3) refer to CDE on dc. 4) consider MVI/C bid 5) continue current plan of care
[2020-04-20] MEDS: SODIUM FERR GLUC 62.5MG/5ML 125 MG in SODIUM CHL 0.9% 100 ML IV SCH (12:30)
[2020-04-20 13:00] VITALS: BP 136/60
[2020-04-20 17:00] VITALS: BP 100/44
--- NOTE | 2020-04-20 19:30 | NUR ---
Opening Shift Note Assumed care of patient, awake and alert. A&Ox4. Patient sitting up in bed. No S/S of distress/SOB or pain. Safety measures maintained by keeping the bed locked in lowest position, 2 side rails up, personal items and call light within reach. Instructed on POC and to call for assist PRN, will continue to monitor for changes Q1hr and PRN.
[2020-04-20 21:18] VITALS: BP 138/61
[2020-04-21 05:00] VITALS: BP 114/67
[2020-04-21] MEDS: ACCU-CHEK COMFORT CURVE STRIP VI SCH ×2 (05:43→12:00)
[2020-04-21] MEDS: InsuLIN REG 1unit/0.01ml Soln (100units/ml) SC SCH ×2 (05:43→12:00)
[2020-04-21 05:55] LABS: Basophils # (auto) 0.1 10 ^3/uL (0-0.2); Eosinophils # (auto) 0.2 10 ^3/uL (0-0.8); Eosinophils % (auto) 2.6 % (0.0-7.0); Hematocrit 22.7 % (41.0-53.0); Hemoglobin 7.8 g/dL (13.5-17.5); Lymphocytes # (auto) 0.8 10 ^3/uL (0.4-5.4); Lymphocytes % (auto) 12.6 % (10.0-50.0); Mean Corpuscular Hemoglobin 31.4 pg (28.0-32.0); Mean Corpuscular Hgb Conc. 34.5 g/dL (32.0-36.0); Mean Corpuscular Volume 91.1 fL (80.0-100.0); Monocytes # (auto) 0.5 10 ^3/uL (0-1.3); Monocytes % (auto) 7.9 % (0.0-12.0); Neutrophils # (auto) 4.8 10 ^3/uL (1.6-8.6); Neutrophils % (auto) 75.9 % (37.0-80.0); Platelet Count (auto) 170 10^3/uL (140-450); Red Cell Distribution Width 15.9 % (11.8-14.3); White Blood Cell 6.4 10^3/uL (4.4-10.8)
[2020-04-21] MEDS: PIPERACILLIN-TAZOB 2.25GM 50 ML IV SCH ×2 (05:57→12:00)
[2020-04-21 06:09] LABS: BUN/Creatinine Ratio 15.8; Calcium 7.2 mg/dL (8.5-10.1); Potassium 3.5 mmol/L (3.5-5.1)
[2020-04-21] MEDS: SUCRALFATE 1 GM/10 ML ORAL SUSP PO SCH ×2 (06:30→11:30)
--- NOTE | 2020-04-21 07:30 | NUR ---
RECEIVED REPORT FROM NIGHT NURSE. PATIENT RESTING IN BED, NO DISTRESS NOTED. WILL CONTINUE TO MONITOR.
[2020-04-21] MEDS: Glucerna Carbsteady SHAKE Vanilla 8oz PO SCH ×2 (08:45→12:00)
[2020-04-21 09:00] VITALS: BP 131/52
--- NOTE | 2020-04-21 11:48 | NUR ---
WOUND CARE NOTE: Wound care in to see patient for reevaluation of multiple wounds. Patient is resting in bed in Rm. 205. Patient is wake, alert and oriented. He's self turning and repositioning. He's in no stated pain at this time. Patient refused wound care and states that he's going home. Patient allow me to take discharge photo of his multiple chronic wounds to chest, abdomen and thigh. Some wounds has wet/soiled dressing and patient allowed me to change those wound dressing. Patient reported that he prefers to go take shower at home and he will change his wound dressing at home after shower. Patient reported that he's been following up with out patient wound care and he does his wound dressing at home. Bedside nurse made aware.
[2020-04-21] MEDS: SODIUM FERR GLUC 62.5MG/5ML 125 MG in SODIUM CHL 0.9% 100 ML IV SCH (12:00)
[2020-04-21 13:15] VITALS: BP 143/56
[2020-04-21 13:29] VITALS: BP 143/56
--- NOTE | 2020-04-21 15:17 | NUR ---
Discharge instructions given as ordered. Encourage to follow up with PMD as instructed. All questions and concerns addressed. Patient verbalized understanding. Medication reconciliation form completed and copy given to patient. IV removed with catheter intact, pressure dressing applied. MIDLINE REMOVED, PRESSURE DRESSING APPLIED. Telemetry unit returned to ICU. Patient taken to [facility] via wheelchair with all personal belongings, accompanied by staff member. No distress noted at time of departure.
== END 2020-04-21 15:09 | disposition home or self-care (01) | DRG 871 ==
LOC: ER 19:22 → TELE 19:23 → TELE-CENTR 04-14 04:10
PROVIDERS: ADMIT Nurse Practitioner; ATTEND Internal Medicine
PROC: 30233N1 Transfusion of Nonautologous Red Blood Cells into Peripheral Vein, Percutaneous Approach (ICD-10-PCS; 2020-04-14)
PROC: 0DB88ZX Excision of Small Intestine, Via Natural or Artificial Opening Endoscopic, Diagnostic (ICD-10-PCS; 2020-04-16)
PROC: 0DB68ZX Excision of Stomach, Via Natural or Artificial Opening Endoscopic, Diagnostic (ICD-10-PCS; principal; 2020-04-16 16:31)
PROC: 30233K1 Transfusion of Nonautologous Frozen Plasma into Peripheral Vein, Percutaneous Approach (ICD-10-PCS; 2020-04-17)
DX: A41.9 Sepsis, unspecified organism (principal); E43 Unspecified severe protein-calorie malnutrition; K26.4 Chronic or unspecified duodenal ulcer with hemorrhage; N17.0 Acute kidney failure with tubular necrosis; E87.0 Hyperosmolality and hypernatremia; N20.2 Calculus of kidney with calculus of ureter; N13.6 Pyonephrosis; L03.311 Cellulitis of abdominal wall; D64.9 Anemia, unspecified; E11.22 Type 2 diabetes mellitus with diabetic chronic kidney disease; E78.5 Hyperlipidemia, unspecified; I12.9 Hypertensive chronic kidney disease with stage 1 through stage 4 chronic kidney disease, or unspecified chronic kidney disease; I80.9 Phlebitis and thrombophlebitis of unspecified site; K29.70 Gastritis, unspecified, without bleeding; N18.3 Chronic kidney disease, stage 3 (moderate); N40.0 Benign prostatic hyperplasia without lower urinary tract symptoms; Z80.1 Family history of malignant neoplasm of trachea, bronchus and lung; Z82.5 Family history of asthma and other chronic lower respiratory diseases; Z85.118 Personal history of other malignant neoplasm of bronchus and lung; Z87.442 Personal history of urinary calculi; Z87.891 Personal history of nicotine dependence; Z83.3 Family history of diabetes mellitus; Z68.29 Body mass index [BMI] 29.0-29.9, adult
CPT/HCPCS: 36415; 71045; 74176; 80048; 80053; 81001; 82270; 82962; 83036; 83605; 83735; 83880; 84100; 84443; 84484; 85007; 85014; 85018; 85025; 85027; 85610; 85730; 86850; 86900; 86901; 86920; 87040; 87081; 87086; 87088; 87186; 93005; 93971; 99291; C9113; G0378; J0171; J1815; J2001; J2250; J2405; J2543; J3490; J7042

== ENCOUNTER → 2020-04-26 | Outpatient (CLI) | payer BC ==
[2020-04-26 08:38] LABS: Basophils # (auto) 0.1 10 ^3/uL (0-0.2); Eosinophils # (auto) 0.1 10 ^3/uL (0-0.8); Lymphocytes # (auto) 0.4 10 ^3/uL (0.4-5.4); Monocytes # (auto) 0.4 10 ^3/uL (0-1.3)
[2020-04-26 08:43] LABS: Basophils % (auto) 0.7 % (0.0-2.0); Eosinophils % (auto) 1.4 % (0.0-7.0); Hematocrit 24.6 % (41.0-53.0); Hemoglobin 8.1 g/dL (13.5-17.5); Lymphocytes % (auto) 5.2 % (10.0-50.0); Mean Corpuscular Hgb Conc. 33.2 g/dL (32.0-36.0); Mean Corpuscular Volume 93.4 fL (80.0-100.0); Monocytes % (auto) 5.1 % (0.0-12.0); Neutrophils # (auto) 7.1 10 ^3/uL (1.6-8.6); Neutrophils % (auto) 87.6 % (37.0-80.0); Platelet Count (auto) 289 10^3/uL (140-450); Red Blood Cells 2.63 10^6/uL (4.5-5.90); Red Cell Distribution Width 16.9 % (11.8-14.3); White Blood Cell 8.1 10^3/uL (4.4-10.8)
[2020-04-26 09:13] LABS: BUN/Creatinine Ratio 14.7; Calcium 7.6 mg/dL (8.5-10.1); Potassium 4.4 mmol/L (3.5-5.1)
== END | disposition home or self-care (01) ==
LOC: LAB 07:25
PROVIDERS: ATTEND Nurse Practitioner
DX: E11.22 Type 2 diabetes mellitus with diabetic chronic kidney disease (principal); N18.4 Chronic kidney disease, stage 4 (severe); N39.0 Urinary tract infection, site not specified; N20.0 Calculus of kidney
CPT/HCPCS: 36415; 80048; 85025; 87086

== ENCOUNTER → 2020-05-06 | Outpatient (CLI) | payer BC ==
[2020-05-06 07:41] LABS: Basophils # (auto) 0 10 ^3/uL (0-0.2); Basophils % (auto) 0.7 % (0.0-2.0); Eosinophils # (auto) 0.2 10 ^3/uL (0-0.8); Eosinophils % (auto) 2.7 % (0.0-7.0); Monocytes # (auto) 0.5 10 ^3/uL (0-1.3); Neutrophils % (auto) 76.3 % (37.0-80.0); White Blood Cell 6.2 10^3/uL (4.4-10.8)
[2020-05-06 07:44] LABS: Hematocrit 22.4 % (41.0-53.0); Hemoglobin 7.4 g/dL (13.5-17.5); Lymphocytes # (auto) 0.7 10 ^3/uL (0.4-5.4); Lymphocytes % (auto) 11.8 % (10.0-50.0); Mean Corpuscular Hemoglobin 31.1 pg (28.0-32.0); Mean Corpuscular Hgb Conc. 33.1 g/dL (32.0-36.0); Mean Corpuscular Volume 93.8 fL (80.0-100.0); Monocytes % (auto) 8.5 % (0.0-12.0); Neutrophils # (auto) 4.7 10 ^3/uL (1.6-8.6); Platelet Count (auto) 216 10^3/uL (140-450); Red Blood Cells 2.39 10^6/uL (4.5-5.90); Red Cell Distribution Width 18.7 % (11.8-14.3)
[2020-05-06 08:13] LABS: Albumin 2.1 g/dL (3.4-5.0); Calcium 7.5 mg/dL (8.5-10.1); Uric Acid 7.3 mg/dL (3.5-7.2)
[2020-05-06 08:16] LABS: BUN/Creatinine Ratio 16.7; Bilirubin, Total 0.2 mg/dL (0.2-1.0); Phosphorus 3.2 mg/dL (2.5-4.90); Total Protein 5.4 g/dL (6.4-8.2)
== END | disposition home or self-care (01) ==
LOC: LAB 07:04
PROVIDERS: ATTEND Nurse Practitioner
DX: E11.22 Type 2 diabetes mellitus with diabetic chronic kidney disease (principal); N18.30 Chronic kidney disease, stage 3 unspecified; E83.39 Other disorders of phosphorus metabolism; E78.5 Hyperlipidemia, unspecified; R80.9 Proteinuria, unspecified; M10.9 Gout, unspecified; D64.9 Anemia, unspecified
CPT/HCPCS: 36415; 80053; 82043; 83036; 83970; 84100; 84550; 85025

== ENCOUNTER → 2020-05-14 | Outpatient (CLI) | payer BC ==
[2020-05-14 13:11] LABS: Albumin 2.3 g/dL (3.4-5.0)
[2020-05-14 13:14] LABS: BUN/Creatinine Ratio 15.1; Bilirubin, Total 0.2 mg/dL (0.2-1.0); Total Protein 5.9 g/dL (6.4-8.2)
== END | disposition home or self-care (01) ==
LOC: LAB 12:35
PROVIDERS: ATTEND Nurse Practitioner
DX: D64.9 Anemia, unspecified (principal)
CPT/HCPCS: 36415; 80053

== ENCOUNTER 2020-05-19 11:46 | Emergency (ER) | payer BC ==
[~2020-05-19] VITALS: Ht 180.3 cm; Wt 74.8 kg
[2020-05-19 12:45] LABS: Basophils # (auto) 0 10 ^3/uL (0-0.2); Eosinophils # (auto) 0.1 10 ^3/uL (0-0.8); Hemoglobin 7.8 g/dL (13.5-17.5); Mean Corpuscular Volume 93.2 fL (80.0-100.0); Monocytes # (auto) 0.5 10 ^3/uL (0-1.3)
[2020-05-19 12:47] LABS: Basophils % (auto) 0.5 % (0.0-2.0); Eosinophils % (auto) 1.4 % (0.0-7.0); Hematocrit 22.6 % (41.0-53.0); Lymphocytes # (auto) 0.7 10 ^3/uL (0.4-5.4); Lymphocytes % (auto) 8.5 % (10.0-50.0); Mean Corpuscular Hemoglobin 32.1 pg (28.0-32.0); Mean Corpuscular Hgb Conc. 34.5 g/dL (32.0-36.0); Monocytes % (auto) 6.1 % (0.0-12.0); Neutrophils # (auto) 6.6 10 ^3/uL (1.6-8.6); Neutrophils % (auto) 83.5 % (37.0-80.0); Platelet Count (auto) 261 10^3/uL (140-450); Red Blood Cells 2.42 10^6/uL (4.5-5.90); Red Cell Distribution Width 18.9 % (11.8-14.3); White Blood Cell 7.9 10^3/uL (4.4-10.8)
[2020-05-19 13:01] LABS: INR 1.04 (0.9-1.15)
[2020-05-19 13:02] LABS: Albumin 2.4 g/dL (3.4-5.0); Calcium 7.6 mg/dL (8.5-10.1); Potassium 3.7 mmol/L (3.5-5.1)
[2020-05-19 13:07] LABS: BUN/Creatinine Ratio 24.2; Bilirubin, Total 0.2 mg/dL (0.2-1.0); Total Protein 6.2 g/dL (6.4-8.2)
[2020-05-19 14:39] VITALS: BP 154/60
== END 2020-05-19 16:01 | disposition left against medical advice (07) ==
LOC: EDBD 11:46 → ER 11:46
DX: S01.01XA Laceration without foreign body of scalp, initial encounter (principal); R55 Syncope and collapse; I13.0 Hypertensive heart and chronic kidney disease with heart failure and stage 1 through stage 4 chronic kidney disease, or unspecified chronic kidney disease; E11.22 Type 2 diabetes mellitus with diabetic chronic kidney disease; N18.30 Chronic kidney disease, stage 3 unspecified; D63.1 Anemia in chronic kidney disease; W22.8XXA Striking against or struck by other objects, initial encounter; Y93.89 Activity, other specified; Y92.89 Other specified places as the place of occurrence of the external cause; Y99.8 Other external cause status
CPT/HCPCS: 12002; 36415; 70450; 71045; 80053; 83735; 84484; 85025; 85610; 93005

== ENCOUNTER → 2020-05-31 | Outpatient (CLI) | payer BC ==
[2020-05-31 11:27] LABS: Basophils # (auto) 0 10 ^3/uL (0-0.2); Eosinophils # (auto) 0.1 10 ^3/uL (0-0.8); Lymphocytes # (auto) 0.7 10 ^3/uL (0.4-5.4); Monocytes # (auto) 0.4 10 ^3/uL (0-1.3); Neutrophils # (auto) 4.8 10 ^3/uL (1.6-8.6)
[2020-05-31 11:30] LABS: Basophils % (auto) 0.3 % (0.0-2.0); Eosinophils % (auto) 1.3 % (0.0-7.0); Hematocrit 23.8 % (41.0-53.0); Hemoglobin 7.8 g/dL (13.5-17.5); Lymphocytes % (auto) 11.7 % (10.0-50.0); Mean Corpuscular Hemoglobin 31.5 pg (28.0-32.0); Mean Corpuscular Hgb Conc. 32.6 g/dL (32.0-36.0); Mean Corpuscular Volume 96.7 fL (80.0-100.0); Monocytes % (auto) 6.7 % (0.0-12.0); Platelet Count (auto) 234 10^3/uL (140-450); Red Blood Cells 2.46 10^6/uL (4.5-5.90); Red Cell Distribution Width 18.8 % (11.8-14.3)
[2020-05-31 11:43] LABS: Potassium 3.9 mmol/L (3.5-5.1)
[2020-05-31 11:48] LABS: Ferritin 341.5 ng/mL (10-322)
[2020-05-31 11:55] LABS: Albumin 2.5 g/dL (3.4-5.0); BUN/Creatinine Ratio 18.9; Bilirubin, Total 0.3 mg/dL (0.2-1.0); Calcium 7.8 mg/dL (8.5-10.1); Total Protein 6.2 g/dL (6.4-8.2)
[2020-05-31 11:57] LABS: % Iron Saturation 21.1 % (20-55)
[2020-05-31 16:28] LABS: Folate (Folic Acid) 2.84 ng/mL (5.38-24)
[2020-05-31 16:49] LABS: Urine Bacteria NONE SEEN /hpf (None Seen); Urine Blood TRACE /uL (Negative); Urine Hyaline Cast FEW /lpf (0 - 2); Urine Mucus FEW (None Seen); Urine Specific Gravity 1.023 (1.001-1.035); Urine Sperm PRESENT /hpf (None Seen); Urine WBC 109 /hpf (0 - 3)
[2020-06-01 08:07] LABS: Immunoglobulin G, Serum 989 mg/dL (603-1613)
[2020-06-01 16:05] LABS: Protein, Urine 258.8 mg/dL (0.0-11.9)
[2020-06-01 16:14] LABS: 24 Hr. Total Protein, Urine 3493.8 mg/24 Hr (<149.1)
== END | disposition home or self-care (01) ==
LOC: LAB 10:30
PROVIDERS: ATTEND Internal Medicine
DX: D64.9 Anemia, unspecified (principal); J32.1 Chronic frontal sinusitis; J32.0 Chronic maxillary sinusitis; J32.2 Chronic ethmoidal sinusitis; J32.3 Chronic sphenoidal sinusitis; H04.552 Acquired stenosis of left nasolacrimal duct; H53.2 Diplopia
CPT/HCPCS: 36415; 80053; 81001; 82164; 82232; 82607; 82728; 82746; 82784; 82785; 83540; 83550; 83615; 83883; 84155; 84156; 84165; 84166; 85025; 86256; 86334; 86335

== ENCOUNTER → 2020-06-16 | Outpatient (CLI) | payer BC ==
[2020-06-16 12:22] LABS: Basophils # (auto) 0 10 ^3/uL (0-0.2); Basophils % (auto) 0.4 % (0.0-2.0); Eosinophils # (auto) 0.1 10 ^3/uL (0-0.8); Eosinophils % (auto) 1.6 % (0.0-7.0); Hematocrit 26.3 % (41.0-53.0); Hemoglobin 8.6 g/dL (13.5-17.5); Lymphocytes # (auto) 0.9 10 ^3/uL (0.4-5.4); Lymphocytes % (auto) 12.3 % (10.0-50.0); Mean Corpuscular Hemoglobin 31.6 pg (28.0-32.0); Mean Corpuscular Hgb Conc. 32.6 g/dL (32.0-36.0); Mean Corpuscular Volume 96.8 fL (80.0-100.0); Monocytes # (auto) 0.5 10 ^3/uL (0-1.3); Monocytes % (auto) 7.5 % (0.0-12.0); Neutrophils # (auto) 5.5 10 ^3/uL (1.6-8.6); Neutrophils % (auto) 78.2 % (37.0-80.0); Nucleated Red Blood Cells % 0.1 %; Platelet Count (auto) 306 10^3/uL (140-450); Red Blood Cells 2.72 10^6/uL (4.5-5.90); Red Cell Distribution Width 18.2 % (11.8-14.3); White Blood Cell 7.1 10^3/uL (4.4-10.8)
[2020-06-16 13:16] LABS: Albumin 2.5 g/dL (3.4-5.0); BUN/Creatinine Ratio 16.3; Calcium 7.6 mg/dL (8.5-10.1); Potassium 4.1 mmol/L (3.5-5.1)
[2020-06-16 13:19] LABS: Bilirubin, Total 0.2 mg/dL (0.2-1.0); Total Protein 6.4 g/dL (6.4-8.2)
== END | disposition home or self-care (01) ==
LOC: LAB 12:01
PROVIDERS: ATTEND Nurse Practitioner
DX: D64.9 Anemia, unspecified (principal)
CPT/HCPCS: 36415; 80053; 85025

== ENCOUNTER → 2020-07-14 | Outpatient (CLI) | payer BC ==
[2020-07-14 10:54] LABS: Basophils # (auto) 0.1 10 ^3/uL (0-0.2); Basophils % (auto) 0.7 % (0.0-2.0); Eosinophils # (auto) 0.2 10 ^3/uL (0-0.8); Eosinophils % (auto) 2.3 % (0.0-7.0); Hematocrit 28.9 % (41.0-53.0); Hemoglobin 9.4 g/dL (13.5-17.5); Lymphocytes # (auto) 1.3 10 ^3/uL (0.4-5.4); Mean Corpuscular Hemoglobin 31.9 pg (28.0-32.0); Mean Corpuscular Hgb Conc. 32.6 g/dL (32.0-36.0); Mean Corpuscular Volume 97.9 fL (80.0-100.0); Monocytes # (auto) 0.5 10 ^3/uL (0-1.3); Monocytes % (auto) 5.2 % (0.0-12.0); Neutrophils # (auto) 7.4 10 ^3/uL (1.6-8.6); Neutrophils % (auto) 77.8 % (37.0-80.0); Platelet Count (auto) 444 10^3/uL (140-450); Red Blood Cells 2.95 10^6/uL (4.5-5.90); Red Cell Distribution Width 16.7 % (11.8-14.3); White Blood Cell 9.6 10^3/uL (4.4-10.8)
[2020-07-14 11:15] LABS: Albumin 2.7 g/dL (3.4-5.0); Calcium 8.7 mg/dL (8.5-10.1); Potassium 4.1 mmol/L (3.5-5.1)
[2020-07-14 11:20] LABS: Bilirubin, Total 0.2 mg/dL (0.2-1.0); Total Protein 7.6 g/dL (6.4-8.2)
== END | disposition home or self-care (01) ==
LOC: LAB 10:38
PROVIDERS: ATTEND Nurse Practitioner
DX: D64.9 Anemia, unspecified (principal)
CPT/HCPCS: 36415; 80053; 85025

== ENCOUNTER → 2020-08-03 | Outpatient (CLI) | payer BC ==
[2020-08-03 14:09] LABS: Basophils # (auto) 0 10 ^3/uL (0-0.2); Basophils % (auto) 0.4 % (0.0-2.0); Eosinophils # (auto) 0.1 10 ^3/uL (0-0.8); Eosinophils % (auto) 1.3 % (0.0-7.0); Hematocrit 27.7 % (41.0-53.0); Hemoglobin 9.1 g/dL (13.5-17.5); Lymphocytes # (auto) 1.1 10 ^3/uL (0.4-5.4); Lymphocytes % (auto) 11.9 % (10.0-50.0); Mean Corpuscular Hemoglobin 32.9 pg (28.0-32.0); Mean Corpuscular Volume 99.6 fL (80.0-100.0); Monocytes # (auto) 0.6 10 ^3/uL (0-1.3); Monocytes % (auto) 6.3 % (0.0-12.0); Neutrophils # (auto) 7.1 10 ^3/uL (1.6-8.6); Neutrophils % (auto) 80.1 % (37.0-80.0); Platelet Count (auto) 254 10^3/uL (140-450); Red Blood Cells 2.78 10^6/uL (4.5-5.90); Red Cell Distribution Width 16.8 % (11.8-14.3); White Blood Cell 8.9 10^3/uL (4.4-10.8)
[2020-08-03 15:04] LABS: Albumin 2.8 g/dL (3.4-5.0); Potassium 4.4 mmol/L (3.5-5.1)
[2020-08-03 15:07] LABS: BUN/Creatinine Ratio 20.2; Bilirubin, Total 0.2 mg/dL (0.2-1.0)
[2020-08-03 15:13] LABS: % Iron Saturation 27.4 % (20-55)
[2020-08-04 23:12] LABS: Ferritin 719.1 ng/mL (10-322)
[2020-08-04 23:13] LABS: Folate (Folic Acid) 2.91 ng/mL (5.38-24)
== END | disposition home or self-care (01) ==
LOC: LAB 13:56
PROVIDERS: ATTEND Internal Medicine
DX: D64.9 Anemia, unspecified (principal)
CPT/HCPCS: 36415; 80053; 82607; 82728; 82746; 83540; 83550; 83615; 85025

== ENCOUNTER → 2020-08-17 | Outpatient (CLI) | payer BC ==
[~2020-08-17] MED LIST changes: +ACET-1304 PO; +BACIOIN15 LEFTEYE; +CYAN25005 PO; +ERY05OO LEFTEYE; +HYDR25TA4 PO; -LISI-646 PO; +LISI20TA28 PO; +SIMV-8 PO; +SUCR1TAB22 PO; +TERA5CAP42 PO
== END | disposition home or self-care (01) ==
LOC: LAB 15:29
PROVIDERS: ATTEND Nurse Practitioner
DX: L03.311 Cellulitis of abdominal wall (principal)
CPT/HCPCS: 87077; 87186; 87205

== ENCOUNTER 2020-09-09 15:51 | Inpatient (IN) | payer BC ==
[~2020-09-09] VITALS: Ht 165.1 cm; Wt 78.4 kg
[~2020-09-09 15:51] MED LIST changes: -ACET-1304 PO; -BACIOIN15 LEFTEYE; -CYAN25005 PO; -ERY05OO LEFTEYE; -HYDR25TA4 PO; +LISI-646 PO; -LISI20TA28 PO; -SIMV-8 PO; -SUCR1TAB22 PO; -TERA5CAP42 PO
[2020-09-09] MEDS ORDERED: SODIUM CHLORIDE 0.9% 500 ML IV ONE ×2 (16:15→18:30)
[2020-09-09 17:30] LABS: Hemoglobin 8.7 g/dL (13.5-17.5)
[2020-09-09 17:31] LABS: Hematocrit 27.6 % (41.0-53.0); Mean Corpuscular Hemoglobin 33.1 pg (28.0-32.0); Mean Corpuscular Hgb Conc. 31.4 g/dL (32.0-36.0); Mean Corpuscular Volume 105.5 fL (80.0-100.0); Platelet Count (auto) 504 10^3/uL (140-450); Red Blood Cells 2.62 10^6/uL (4.5-5.90); White Blood Cell 18.5 10^3/uL (4.4-10.8)
[2020-09-09 17:34] LABS: Basophils % (manual) 0 (0.0-2.0); Blast Cells 0; Eosinophils % (manual) 0 (0-7); Metamyelocytes % 0; Myelocytes % 0; Promyelocytes % 0; Reactive Lymphocytes 0
[2020-09-09 17:46] LABS: Albumin 2.5 g/dL (3.4-5.0); Calcium 8.1 mg/dL (8.5-10.1)
[2020-09-09 17:54] LABS: BUN/Creatinine Ratio 19.9; Bilirubin, Total 0.2 mg/dL (0.2-1.0); CRP High Sensitivity 1.45 mg/dL (< 0.3)
[2020-09-09 18:00] LABS: Potassium 5.6 mmol/L (3.5-5.1)
[2020-09-09] MEDS ORDERED: SODIUM BICARBONATE 8.4 % INJ 50ML VIAL IV ONE (18:30)
[2020-09-09] MEDS ORDERED: CALCIUM GLUC 4.65meq/50ml D5AE 50 ML IV ONE (18:30)
[2020-09-09 18:36] LABS: Band Neutrophils % (manual) 2; Lymphocytes % (manual) 6 (10.0-50.0); Monocytes % (manual) 3 (0-12)
[2020-09-09] MEDS ORDERED: DOCUSATE CALCIUM 240 MG CAP PO PRN (19:00)
[2020-09-09] MEDS ORDERED: ONDANSETRON HCL 4 MG/2 ML VIAL IV PRN (19:00)
[2020-09-09] MEDS ORDERED: NITROGLYCERIN 0.4 MG SL TAB SL PRN (19:00)
[2020-09-09] MEDS ORDERED: LORazepam 0.5 MG TAB PO PRN (19:00)
[2020-09-09] MEDS ORDERED: ALBUTEROL SULF 2.5 MG/0.5ML(0.5%) NEB SOLN NEB PRN (19:00)
[2020-09-09] MEDS ORDERED: MORPHINE SULF INJ 2 MG/ML SYRINGE 1ML IV PRN ×2 (19:00)
[2020-09-09] MEDS ORDERED: hydrALAZINE HCL 20 MG/ML VL IV PRN (19:00)
[2020-09-09] MEDS ORDERED: SODIUM ZIRCONIUM CYCL 10 GM PAK PO ONE (20:00)
[2020-09-09] MEDS: SODIUM CHLORIDE 0.9% 1,000 ML IV SCH (20:15)
[2020-09-09] MEDS: INSULIN LANTUS (GLARGINE) 1 /0.01ml (100units/ml) SC SCH (22:18)
[2020-09-09] MEDS: PIPERACILLIN-TAZOB 2.25GM 50 ML IV SCH (22:18)
[2020-09-09 22:22] VITALS: BP 133/54
[2020-09-09 23:28] LABS: Potassium 4.2 mmol/L (3.5-5.1)
[2020-09-10 01:55] LABS: Hemoglobin 7.5 g/dL (13.5-17.5)
[2020-09-10 02:05] LABS: Urine Bacteria NONE SEEN /hpf (None Seen); Urine Blood TRACE /uL (Negative); Urine Hyaline Cast FEW /lpf (0 - 2); Urine WBC 158 /hpf (0 - 3); Urine WBC Clumps PRESENT /hpf (None Seen)
[2020-09-10] MEDS: SODIUM CHLORIDE 0.9% 1,000 ML IV SCH ×2 (02:06→08:20)
[2020-09-10 05:00] VITALS: BP 137/60
[2020-09-10] MEDS ORDERED: DEXTROSE (50%) 50ML SYRG IV PRN (05:30)
[2020-09-10] MEDS: PIPERACILLIN-TAZOB 2.25GM 50 ML IV SCH (06:11)
[2020-09-10] MEDS ORDERED: PNEUMOCOCCAL VACC POLYS 25 MCG/0.5 ML VIAL IM ONE (06:30)
[2020-09-10] MEDS: InsuLIN REG 1unit/0.01ml Soln (100units/ml) SC SCH ×4 (07:00→21:46)
[2020-09-10] MEDS: ACCU-CHEK COMFORT CURVE STRIP VI SCH ×4 (07:00→21:47)
[2020-09-10 09:00] VITALS: BP 155/70
[2020-09-10 10:03] LABS: Basophils % (auto) 0.5 % (0.0-2.0); Eosinophils # (auto) 0.2 10 ^3/uL (0-0.8); Lymphocytes # (auto) 0.8 10 ^3/uL (0.4-5.4); Monocytes # (auto) 0.5 10 ^3/uL (0-1.3); Neutrophils # (auto) 8.2 10 ^3/uL (1.6-8.6); Red Cell Distribution Width 14.7 % (11.8-14.3)
[2020-09-10 10:04] LABS: Basophils # (auto) 0 10 ^3/uL (0-0.2); Eosinophils % (auto) 1.6 % (0.0-7.0); Hemoglobin 7.9 g/dL (13.5-17.5); Lymphocytes % (auto) 8.2 % (10.0-50.0); Mean Corpuscular Hemoglobin 33.8 pg (28.0-32.0); Mean Corpuscular Hgb Conc. 32.8 g/dL (32.0-36.0); Monocytes % (auto) 4.9 % (0.0-12.0); Neutrophils % (auto) 84.8 % (37.0-80.0); Platelet Count (auto) 342 10^3/uL (140-450); Red Blood Cells 2.33 10^6/uL (4.5-5.90); White Blood Cell 9.7 10^3/uL (4.4-10.8)
[2020-09-10 10:12] LABS: Potassium 3.9 mmol/L (3.5-5.1)
[2020-09-10 10:20] LABS: Albumin 2.2 g/dL (3.4-5.0); BUN/Creatinine Ratio 23.2; Bilirubin, Total 0.2 mg/dL (0.2-1.0)
[2020-09-10] MEDS: PANTOPRAZOLE 40 MG TAB PO SCH (10:44)
[2020-09-10] MEDS: CITALOPRAM HYDROBR 20 MG TAB PO SCH (10:44)
[2020-09-10 12:00] VITALS: BP 143/72
[2020-09-10 12:00] LABS: Hematocrit 23.9 % (41.0-53.0); Hemoglobin 7.7 g/dL (13.5-17.5)
[2020-09-10] MEDS ORDERED: SUCR1TAB22 PO (13:57)
[2020-09-10] MEDS ORDERED: ACET-1304 PO (13:58)
[2020-09-10] MEDS ORDERED: BACIOIN15 LEFTEYE (14:10)
[2020-09-10] MEDS ORDERED: ERY05OO LEFTEYE (14:10)
[2020-09-10] MEDS ORDERED: CYAN25005 PO (14:12)
[2020-09-10] MEDS ORDERED: TERA5CAP42 PO (14:16)
[2020-09-10] MEDS ORDERED: SIMV-8 PO (14:17)
[2020-09-10] MEDS ORDERED: HYDR25TA4 PO (14:18)
[2020-09-10 16:00] VITALS: BP 131/74
[2020-09-10] MEDS: D5W/SOD CHLO 0.9% 1,000 ML IV SCH ×2 (17:45→21:05)
[2020-09-10] MEDS: ACETAMINOPHEN 500 MG TAB PO PRN (17:47)
[2020-09-10 18:04] LABS: Hematocrit 22.8 % (41.0-53.0); Hemoglobin 7.4 g/dL (13.5-17.5)
[2020-09-10] MEDS: MEROPENEM 500MG IVPB 50 ML IV SCH (21:05)
[2020-09-10] MEDS: INSULIN LANTUS (GLARGINE) 1 /0.01ml (100units/ml) SC SCH (21:46)
[2020-09-10 22:00] VITALS: BP 137/69
[2020-09-10] MEDS: BACITRACIN LEFTEYE SCH (22:00)
[2020-09-11 05:00] VITALS: BP 147/73
[2020-09-11 05:52] LABS: Hematocrit 23.6 % (41.0-53.0); Hemoglobin 7.8 g/dL (13.5-17.5); Mean Corpuscular Hemoglobin 33.9 pg (28.0-32.0); Mean Corpuscular Hgb Conc. 33.2 g/dL (32.0-36.0); Platelet Count (auto) 346 10^3/uL (140-450); Red Blood Cells 2.31 10^6/uL (4.5-5.90); Red Cell Distribution Width 14.5 % (11.8-14.3); White Blood Cell 9.1 10^3/uL (4.4-10.8)
[2020-09-11] MEDS: BACITRACIN LEFTEYE SCH (05:56)
[2020-09-11 06:04] LABS: Band Neutrophils % (manual) 0; Blast Cells 0; Myelocytes % 0; Promyelocytes % 0; Reactive Lymphocytes 0
[2020-09-11] MEDS: InsuLIN REG 1unit/0.01ml Soln (100units/ml) SC SCH ×4 (06:19→21:08)
[2020-09-11] MEDS: ACCU-CHEK COMFORT CURVE STRIP VI SCH ×4 (06:20→21:08)
[2020-09-11 06:25] LABS: Potassium 3.9 mmol/L (3.5-5.1)
[2020-09-11 06:32] LABS: BUN/Creatinine Ratio 21.2; Calcium 8.3 mg/dL (8.5-10.1)
[2020-09-11 08:00] VITALS: BP 144/64
[2020-09-11 08:26] LABS: Basophils % (manual) 1 (0.0-2.0); Eosinophils % (manual) 4 (0-7); Lymphocytes % (manual) 4 (10.0-50.0); Metamyelocytes % 2; Monocytes % (manual) 6 (0-12)
[2020-09-11 09:26] VITALS: BP 144/64
[2020-09-11] MEDS: MEROPENEM 500MG IVPB 50 ML IV SCH ×2 (09:33→21:07)
[2020-09-11] MEDS: CITALOPRAM HYDROBR 20 MG TAB PO SCH (09:33)
[2020-09-11] MEDS: PANTOPRAZOLE 40 MG TAB PO SCH (09:34)
[2020-09-11] MEDS: ACETAMINOPHEN 500 MG TAB PO PRN ×2 (09:34→17:23)
[2020-09-11 12:42] VITALS: BP 137/70
[2020-09-11] MEDS: BACITRACIN-POLYMYXIN B OPTH(EYE) OINT 3.5GM OP SCH ×2 (14:00→21:07)
[2020-09-11] MEDS: D5W/SOD CHLO 0.9% 1,000 ML IV SCH (14:03)
[2020-09-11 17:10] VITALS: BP 137/71
[2020-09-11] MEDS: Glucerna Carbsteady SHAKE Vanilla 8oz PO SCH (17:22)
[2020-09-11 18:31] LABS: Hemoglobin 7.4 g/dL (13.5-17.5)
[2020-09-11 18:33] LABS: Hematocrit 22.5 % (41.0-53.0)
[2020-09-11] MEDS: GENTAMICIN SULF 0.3% OPTH(EYE) OINT 3.5GM LEFTEYE SCH (21:07)
[2020-09-11] MEDS: INSULIN LANTUS (GLARGINE) 1 /0.01ml (100units/ml) SC SCH (21:08)
[2020-09-11 22:00] VITALS: BP 142/66
[2020-09-12] VITALS (7 sets, daily range): BP systolic 131–144; BP diastolic 64–72
[2020-09-12] MEDS: D5W/SOD CHLO 0.9% 1,000 ML IV SCH ×2 (03:45→18:41)
[2020-09-12] MEDS: BACITRACIN-POLYMYXIN B OPTH(EYE) OINT 3.5GM OP SCH (06:00)
[2020-09-12] MEDS: InsuLIN REG 1unit/0.01ml Soln (100units/ml) SC SCH ×3 (06:01→18:43)
[2020-09-12] MEDS: ACCU-CHEK COMFORT CURVE STRIP VI SCH ×3 (06:02→18:41)
[2020-09-12 06:44] LABS: Hemoglobin 7.2 g/dL (13.5-17.5)
[2020-09-12 06:46] LABS: Hematocrit 22.5 % (41.0-53.0); Mean Corpuscular Hemoglobin 33.1 pg (28.0-32.0); Mean Corpuscular Volume 103.7 fL (80.0-100.0); Platelet Count (auto) 342 10^3/uL (140-450); Red Blood Cells 2.17 10^6/uL (4.5-5.90); Red Cell Distribution Width 15.2 % (11.8-14.3); White Blood Cell 8.9 10^3/uL (4.4-10.8)
[2020-09-12 07:00] LABS: BUN/Creatinine Ratio 23.5; Calcium 8.4 mg/dL (8.5-10.1); Potassium 4.5 mmol/L (3.5-5.1)
[2020-09-12 07:02] LABS: Basophils % (manual) 0 (0.0-2.0); Blast Cells 0; Myelocytes % 0; Promyelocytes % 0; Reactive Lymphocytes 0
[2020-09-12] MEDS: Glucerna Carbsteady SHAKE Vanilla 8oz PO SCH ×3 (08:00→18:41)
[2020-09-12 08:03] LABS: Band Neutrophils % (manual) 2; Eosinophils % (manual) 1 (0-7); Lymphocytes % (manual) 13 (10.0-50.0); Metamyelocytes % 1; Monocytes % (manual) 4 (0-12)
[2020-09-12] MEDS: MEROPENEM 500MG IVPB 50 ML IV SCH (09:52)
[2020-09-12] MEDS: PANTOPRAZOLE 40 MG TAB PO SCH (09:53)
[2020-09-12] MEDS: GENTAMICIN SULF 0.3% OPTH(EYE) OINT 3.5GM LEFTEYE SCH (09:53)
[2020-09-12] MEDS: CITALOPRAM HYDROBR 20 MG TAB PO SCH (09:53)
[2020-09-12 12:41] LABS: % Iron Saturation 13.4 % (20-55)
[2020-09-12] MEDS: FERROUS SULFATE 325 MG TAB PO SCH (18:41)
[2020-09-12] MEDS: SUCRALFATE 1 GM/10 ML ORAL SUSP PO SCH (18:41)
[2020-09-12] MEDS: ACETAMINOPHEN 500 MG TAB PO PRN (18:42)
[2020-09-12 18:49] LABS: Hematocrit 20.6 % (41.0-53.0)
[2020-09-13] MEDS: MEROPENEM 1GM IVPB 100 ML IV SCH ×3 (00:09→22:28)
[2020-09-13] MEDS: GENTAMICIN SULF 0.3% OPTH(EYE) OINT 3.5GM LEFTEYE SCH ×3 (00:09→22:32)
[2020-09-13] MEDS: SUCRALFATE 1 GM/10 ML ORAL SUSP PO SCH ×5 (00:10→22:28)
[2020-09-13] MEDS: ACCU-CHEK COMFORT CURVE STRIP VI SCH ×5 (00:10→22:00)
[2020-09-13] MEDS: INSULIN LANTUS (GLARGINE) 1 /0.01ml (100units/ml) SC SCH ×2 (00:12→22:29)
[2020-09-13] MEDS: InsuLIN REG 1unit/0.01ml Soln (100units/ml) SC SCH ×5 (00:12→22:31)
[2020-09-13] MEDS: ACETAMINOPHEN 500 MG TAB PO PRN ×2 (04:42→18:38)
[2020-09-13 05:00] VITALS: BP 141/64
[2020-09-13] MEDS: D5W/SOD CHLO 0.9% 1,000 ML IV SCH ×2 (06:29→19:30)
[2020-09-13 07:01] LABS: Hematocrit 21.3 % (41.0-53.0)
[2020-09-13 07:04] LABS: Hemoglobin 7.1 g/dL (13.5-17.5); Mean Corpuscular Hemoglobin 34.1 pg (28.0-32.0); Mean Corpuscular Hgb Conc. 33.1 g/dL (32.0-36.0); Mean Corpuscular Volume 102.9 fL (80.0-100.0); Platelet Count (auto) 304 10^3/uL (140-450); Red Blood Cells 2.07 10^6/uL (4.5-5.90); Red Cell Distribution Width 14.8 % (11.8-14.3); White Blood Cell 7.2 10^3/uL (4.4-10.8)
[2020-09-13 07:08] LABS: Band Neutrophils % (manual) 0; Blast Cells 0; Eosinophils % (manual) 0 (0-7); Metamyelocytes % 0; Promyelocytes % 0; Reactive Lymphocytes 0
[2020-09-13 07:40] LABS: BUN/Creatinine Ratio 24.3; Bilirubin, Total 0.4 mg/dL (0.2-1.0); Phosphorus 2.4 mg/dL (2.5-4.90); Total Protein 5.5 g/dL (6.4-8.2); Uric Acid 7.6 mg/dL (3.5-7.2)
[2020-09-13 07:54] LABS: Basophils % (manual) 1 (0.0-2.0); Lymphocytes % (manual) 14 (10.0-50.0); Monocytes % (manual) 3 (0-12); Myelocytes % 1
[2020-09-13 08:52] VITALS: BP 157/67
[2020-09-13] MEDS: FERROUS SULFATE 325 MG TAB PO SCH ×2 (08:56→16:26)
[2020-09-13] MEDS: CITALOPRAM HYDROBR 20 MG TAB PO SCH (08:57)
[2020-09-13] MEDS: Glucerna Carbsteady SHAKE Vanilla 8oz PO SCH ×3 (08:57→16:26)
[2020-09-13] MEDS: PANTOPRAZOLE 40 MG TAB PO SCH (08:58)
[2020-09-13 13:00] VITALS: BP 146/67
[2020-09-13 16:41] VITALS: BP 136/66
[2020-09-13 20:00] VITALS: BP 145/62
[2020-09-13] MEDS: LINEZOLID 600MG/300ML 300 ML IV SCH (20:47)
[2020-09-13 22:00] VITALS: BP 145/62
[2020-09-14] VITALS (11 sets, daily range): BP systolic 122–153; BP diastolic 58–76
[2020-09-14] MEDS: InsuLIN REG 1unit/0.01ml Soln (100units/ml) SC SCH ×4 (06:13→22:56)
[2020-09-14] MEDS: ACCU-CHEK COMFORT CURVE STRIP VI SCH ×4 (06:13→22:00)
[2020-09-14] MEDS: ACETAMINOPHEN 500 MG TAB PO PRN (06:29)
[2020-09-14] MEDS: SUCRALFATE 1 GM/10 ML ORAL SUSP PO SCH ×4 (06:29→22:28)
[2020-09-14] MEDS: Glucerna Carbsteady SHAKE Vanilla 8oz PO SCH ×3 (08:00→18:21)
[2020-09-14 08:44] LABS: Hematocrit 25.3 % (41.0-53.0); Hemoglobin 8.5 g/dL (13.5-17.5); Mean Corpuscular Hemoglobin 33.5 pg (28.0-32.0); Mean Corpuscular Hgb Conc. 33.7 g/dL (32.0-36.0); Mean Corpuscular Volume 99.6 fL (80.0-100.0); Platelet Count (auto) 312 10^3/uL (140-450); Red Blood Cells 2.54 10^6/uL (4.5-5.90); Red Cell Distribution Width 15.8 % (11.8-14.3); White Blood Cell 9.3 10^3/uL (4.4-10.8)
[2020-09-14 08:56] LABS: Band Neutrophils % (manual) 0; Basophils % (manual) 0 (0.0-2.0); Blast Cells 0; Promyelocytes % 0; Reactive Lymphocytes 0
[2020-09-14 09:06] LABS: Eosinophils % (manual) 3 (0-7); Lymphocytes % (manual) 10 (10.0-50.0); Metamyelocytes % 1; Monocytes % (manual) 3 (0-12); Myelocytes % 2
[2020-09-14 09:07] LABS: Calcium 7.9 mg/dL (8.5-10.1); Potassium 4.1 mmol/L (3.5-5.1)
[2020-09-14 09:12] LABS: BUN/Creatinine Ratio 24.7; Bilirubin, Total 0.8 mg/dL (0.2-1.0); Total Protein 5.4 g/dL (6.4-8.2)
[2020-09-14] MEDS: LINEZOLID 600MG/300ML 300 ML IV SCH ×2 (09:34→20:50)
[2020-09-14] MEDS: PANTOPRAZOLE 40 MG TAB PO SCH (09:37)
[2020-09-14] MEDS: FERROUS SULFATE 325 MG TAB PO SCH ×2 (09:37→18:13)
[2020-09-14] MEDS: CITALOPRAM HYDROBR 20 MG TAB PO SCH (09:39)
[2020-09-14] MEDS: D5W/SOD CHLO 0.9% 1,000 ML IV SCH (11:07)
[2020-09-14] MEDS: GENTAMICIN SULF 0.3% OPTH(EYE) OINT 3.5GM LEFTEYE SCH ×2 (11:08→22:28)
[2020-09-14] MEDS ORDERED: SODIUM BICARBONATE 50ML VIAL 75 ML in D5W 5% 1,000 ML IV SCH (11:45)
[2020-09-14] MEDS: MEROPENEM 1GM IVPB 100 ML IV SCH ×2 (12:04→22:27)
[2020-09-14] MEDS: SODIUM BICARBONATE 50ML VIAL 100 ML in D5W 5% 1,000 ML IV SCH ×2 (13:45→21:10)
[2020-09-14] MEDS: INSULIN LANTUS (GLARGINE) 1 /0.01ml (100units/ml) SC SCH (22:54)
[2020-09-15] MEDS: ACETAMINOPHEN 500 MG TAB PO PRN ×2 (01:18→15:29)
[2020-09-15 04:40] VITALS: BP 144/71
[2020-09-15 05:36] LABS: Hemoglobin 8.2 g/dL (13.5-17.5); Red Cell Distribution Width 15.6 % (11.8-14.3); White Blood Cell 7.9 10^3/uL (4.4-10.8)
[2020-09-15 05:38] LABS: Hematocrit 24.4 % (41.0-53.0); Mean Corpuscular Hemoglobin 33.5 pg (28.0-32.0); Mean Corpuscular Hgb Conc. 33.6 g/dL (32.0-36.0); Mean Corpuscular Volume 99.5 fL (80.0-100.0); Platelet Count (auto) 267 10^3/uL (140-450); Red Blood Cells 2.46 10^6/uL (4.5-5.90)
[2020-09-15 05:48] LABS: Basophils % (manual) 0 (0.0-2.0); Blast Cells 0; Promyelocytes % 0; Reactive Lymphocytes 0
[2020-09-15 05:50] LABS: Calcium 7.3 mg/dL (8.5-10.1); Magnesium 1.6 mg/dL (1.6-2.6); Potassium 3.7 mmol/L (3.5-5.1)
[2020-09-15 05:53] LABS: BUN/Creatinine Ratio 23.8; Phosphorus 1.7 mg/dL (2.5-4.90)
[2020-09-15] MEDS: ACCU-CHEK COMFORT CURVE STRIP VI SCH ×3 (06:21→17:22)
[2020-09-15] MEDS: SUCRALFATE 1 GM/10 ML ORAL SUSP PO SCH ×3 (06:21→17:22)
[2020-09-15] MEDS: InsuLIN REG 1unit/0.01ml Soln (100units/ml) SC SCH ×3 (06:39→17:23)
[2020-09-15 06:52] LABS: Band Neutrophils % (manual) 17; Eosinophils % (manual) 2 (0-7); Lymphocytes % (manual) 10 (10.0-50.0); Metamyelocytes % 1; Monocytes % (manual) 2 (0-12); Myelocytes % 1
[2020-09-15] MEDS: SODIUM BICARBONATE 50ML VIAL 100 ML in D5W 5% 1,000 ML IV SCH (07:29)
[2020-09-15] MEDS: Glucerna Carbsteady SHAKE Vanilla 8oz PO SCH ×3 (08:00→18:00)
[2020-09-15 09:00] VITALS: BP 148/62
[2020-09-15] MEDS: FERROUS SULFATE 325 MG TAB PO SCH ×2 (09:00→19:52)
[2020-09-15] MEDS: LINEZOLID 600MG/300ML 300 ML IV SCH (09:00)
[2020-09-15] MEDS ORDERED: POTASSIUM PHOSPHATE 44 MEQ in D5W 5% 250 ML IV ONE ×2 (09:30→10:30)
[2020-09-15] MEDS ORDERED: SODIUM BICARBONATE 50ML VIAL 100 ML in D5W 5% 1,000 ML IV SCH (09:45)
[2020-09-15] MEDS: GENTAMICIN SULF 0.3% OPTH(EYE) OINT 3.5GM LEFTEYE SCH (10:00)
[2020-09-15] MEDS ORDERED: MAGNESIUM OXIDE 400 MG TAB PO ONE (10:30)
[2020-09-15] MEDS ORDERED: FOLIC ACID 1 MG TAB PO ONE (10:30)
[2020-09-15] MEDS: PANTOPRAZOLE 40 MG TAB PO SCH (11:47)
[2020-09-15] MEDS: CITALOPRAM HYDROBR 20 MG TAB PO SCH (11:48)
[2020-09-15 13:00] VITALS: BP 153/69
[2020-09-15 16:45] VITALS: BP 140/70
[2020-09-15] MEDS: MEROPENEM 1GM IVPB 100 ML IV SCH (17:00)
[2020-09-15 20:16] VITALS: BP 140/70
[2020-09-16] MEDS ORDERED: FOLIC ACID 1 MG TAB PO SCH (10:00)
== END 2020-09-15 21:37 | disposition home or self-care (01) | DRG 682 ==
LOC: ER 15:51 → TELE 15:52 → TELE-CENTR 09-10 03:50
PROVIDERS: ADMIT Family Medicine; ATTEND Internal Medicine
PROC: 30233N1 Transfusion of Nonautologous Red Blood Cells into Peripheral Vein, Percutaneous Approach (ICD-10-PCS; principal; 2020-09-14)
DX: N17.0 Acute kidney failure with tubular necrosis (principal); E43 Unspecified severe protein-calorie malnutrition; L03.311 Cellulitis of abdominal wall; S21.109A Unspecified open wound of unspecified front wall of thorax without penetration into thoracic cavity, initial encounter; L03.90 Cellulitis, unspecified; N30.00 Acute cystitis without hematuria; I10 Essential (primary) hypertension; E87.5 Hyperkalemia; R06.03 Acute respiratory distress; Z20.822 Contact with and (suspected) exposure to COVID-19; E86.0 Dehydration; E83.51 Hypocalcemia; S31.109A Unspecified open wound of abdominal wall, unspecified quadrant without penetration into peritoneal cavity, initial encounter; N18.30 Chronic kidney disease, stage 3 unspecified; E88.09 Other disorders of plasma-protein metabolism, not elsewhere classified; E78.5 Hyperlipidemia, unspecified; D53.9 Nutritional anemia, unspecified; D63.1 Anemia in chronic kidney disease; D75.89 Other specified diseases of blood and blood-forming organs; E11.22 Type 2 diabetes mellitus with diabetic chronic kidney disease; E11.65 Type 2 diabetes mellitus with hyperglycemia; I12.9 Hypertensive chronic kidney disease with stage 1 through stage 4 chronic kidney disease, or unspecified chronic kidney disease; K21.9 Gastro-esophageal reflux disease without esophagitis; Z82.5 Family history of asthma and other chronic lower respiratory diseases; Z83.3 Family history of diabetes mellitus; Z80.1 Family history of malignant neoplasm of trachea, bronchus and lung; Z87.442 Personal history of urinary calculi; Z87.11 Personal history of peptic ulcer disease; Y93.89 Activity, other specified; Y92.89 Other specified places as the place of occurrence of the external cause; Y99.8 Other external cause status
CPT/HCPCS: 36415; 71045; 76775; 80048; 80051; 80053; 81001; 82306; 82607; 82728; 82962; 83036; 83540; 83550; 83615; 83735; 83880; 84100; 84443; 84484; 84550; 85007; 85014; 85018; 85025; 85027; 85379; 86141; 86850; 86900; 86901; 86920; 87040; 87077; 87086; 87147; 87186; 87205; 87426; 93005; 99291; G0378; J0610; J1815; J2185; J2543; J7042; J7060

== ENCOUNTER → 2020-09-27 | Outpatient (CLI) | payer BC ==
[~2020-09-27] MED LIST changes: +ACET-1304 PO; -AMPI500C8 PO; +BACIOIN15 LEFTEYE; -CANA100T PO; -CYAN100T7 PO; +CYAN25005 PO; +ERY05OO LEFTEYE; -FERR-7 PO; +HYDR25TA4 PO; -LEVO750T8 PO; -LISI-646 PO; +SIMV-8 PO; +SUCR1TAB22 PO; +TERA5CAP42 PO
[2020-09-27 11:51] LABS: Basophils # (auto) 0 10 ^3/uL (0-0.2); Basophils % (auto) 0.4 % (0.0-2.0); Eosinophils # (auto) 0.1 10 ^3/uL (0-0.8); Eosinophils % (auto) 1.3 % (0.0-7.0); Hematocrit 27.1 % (41.0-53.0); Lymphocytes # (auto) 0.9 10 ^3/uL (0.4-5.4); Lymphocytes % (auto) 10.4 % (10.0-50.0); Mean Corpuscular Hemoglobin 33.5 pg (28.0-32.0); Mean Corpuscular Hgb Conc. 33.1 g/dL (32.0-36.0); Mean Corpuscular Volume 101.2 fL (80.0-100.0); Monocytes # (auto) 0.3 10 ^3/uL (0-1.3); Monocytes % (auto) 3.1 % (0.0-12.0); Neutrophils # (auto) 7.2 10 ^3/uL (1.6-8.6); Neutrophils % (auto) 84.8 % (37.0-80.0); Platelet Count (auto) 184 10^3/uL (140-450); Red Blood Cells 2.68 10^6/uL (4.5-5.90); White Blood Cell 8.5 10^3/uL (4.4-10.8)
[2020-09-27 12:30] LABS: BUN/Creatinine Ratio 22.9; Calcium 8.4 mg/dL (8.5-10.1); Potassium 4.4 mmol/L (3.5-5.1)
== END | disposition home or self-care (01) ==
LOC: LAB 11:28
PROVIDERS: ATTEND Internal Medicine
DX: E11.22 Type 2 diabetes mellitus with diabetic chronic kidney disease (principal); N18.30 Chronic kidney disease, stage 3 unspecified
CPT/HCPCS: 36415; 80048; 85025

== ENCOUNTER 2020-09-28 12:06 | Emergency (ER) | payer BC ==
[~2020-09-28] VITALS: Ht 165.1 cm; Wt 64.0 kg
[2020-09-28 13:27] LABS: Basophils # (auto) 0 10 ^3/uL (0-0.2); Basophils % (auto) 0.4 % (0.0-2.0); Eosinophils # (auto) 0.1 10 ^3/uL (0-0.8); Monocytes # (auto) 0.4 10 ^3/uL (0-1.3); Neutrophils # (auto) 7.3 10 ^3/uL (1.6-8.6); White Blood Cell 8.7 10^3/uL (4.4-10.8)
[2020-09-28 13:30] LABS: Eosinophils % (auto) 1.1 % (0.0-7.0); Hematocrit 27.1 % (41.0-53.0); Lymphocytes # (auto) 0.8 10 ^3/uL (0.4-5.4); Lymphocytes % (auto) 9.7 % (10.0-50.0); Mean Corpuscular Hemoglobin 33.7 pg (28.0-32.0); Mean Corpuscular Hgb Conc. 33.1 g/dL (32.0-36.0); Mean Corpuscular Volume 101.6 fL (80.0-100.0); Monocytes % (auto) 4.4 % (0.0-12.0); Neutrophils % (auto) 84.4 % (37.0-80.0); Nucleated Red Blood Cells % 0.1 %; Platelet Count (auto) 156 10^3/uL (140-450); Red Blood Cells 2.67 10^6/uL (4.5-5.90); Red Cell Distribution Width 13.8 % (11.8-14.3)
[2020-09-28 16:02] VITALS: BP 134/52
[2020-09-28 16:13] VITALS: BP 127/47
[2020-09-28 16:33] VITALS: BP 132/52
== END 2020-09-28 18:08 | disposition home or self-care (01) ==
LOC: ER 12:06
DX: D64.9 Anemia, unspecified (principal); R53.83 Other fatigue; I12.9 Hypertensive chronic kidney disease with stage 1 through stage 4 chronic kidney disease, or unspecified chronic kidney disease; E11.22 Type 2 diabetes mellitus with diabetic chronic kidney disease; E78.5 Hyperlipidemia, unspecified; Z79.899 Other long term (current) drug therapy
CPT/HCPCS: 36415; 36430; 85025; 86850; 86900; 86901; 86920; 99285; P9016

== ENCOUNTER → 2020-10-12 | Outpatient (CLI) | payer BC | END | disposition home or self-care (01) | LOC: LAB 15:34 | PROVIDERS: ATTEND Nurse Practitioner | DX: L03.311 Cellulitis of abdominal wall (principal) | CPT/HCPCS: 87205 ==

== ENCOUNTER 2020-10-19 10:33 | Inpatient (IN) | payer BC ==
[2020-10-18 23:30] VITALS: BP 167/81
[~2020-10-19] VITALS: Ht 165.1 cm; Wt 66.3 kg
[2020-10-19] MEDS ORDERED: SODIUM CHLORIDE 0.9% 500 ML IV ONE (10:45)
[2020-10-19] MEDS ORDERED: SULFAMETH-TRIMETH 80/16MG-ML 10 ML in D5W 5% 250 ML IV ONE (11:15)
[2020-10-19 11:48] LABS: Basophils # (auto) 0 10 ^3/uL (0-0.2); Basophils % (auto) 0.4 % (0.0-2.0); Eosinophils # (auto) 0.2 10 ^3/uL (0-0.8); Hematocrit 29.2 % (41.0-53.0); Hemoglobin 9.7 g/dL (13.5-17.5); Lymphocytes # (auto) 0.9 10 ^3/uL (0.4-5.4); Lymphocytes % (auto) 8.7 % (10.0-50.0); Mean Corpuscular Hemoglobin 33.7 pg (28.0-32.0); Mean Corpuscular Hgb Conc. 33.3 g/dL (32.0-36.0); Mean Corpuscular Volume 101.3 fL (80.0-100.0); Monocytes # (auto) 0.6 10 ^3/uL (0-1.3); Monocytes % (auto) 5.4 % (0.0-12.0); Neutrophils # (auto) 8.9 10 ^3/uL (1.6-8.6); Neutrophils % (auto) 83.5 % (37.0-80.0); Platelet Count (auto) 315 10^3/uL (140-450); Red Blood Cells 2.89 10^6/uL (4.5-5.90); Red Cell Distribution Width 14.6 % (11.8-14.3); White Blood Cell 10.7 10^3/uL (4.4-10.8)
[2020-10-19 11:56] LABS: Albumin 2.5 g/dL (3.4-5.0); BUN/Creatinine Ratio 19.9; Calcium 7.8 mg/dL (8.5-10.1); Potassium 4.3 mmol/L (3.5-5.1)
[2020-10-19 11:59] LABS: Bilirubin, Total 0.2 mg/dL (0.2-1.0); Total Protein 6.5 g/dL (6.4-8.2)
[2020-10-19] MEDS ORDERED: MORPHINE SULF INJ 2 MG/ML SYRINGE 1ML IV PRN (14:00)
[2020-10-19] MEDS ORDERED: DEXTROSE (50%) 50ML SYRG IV PRN (14:00)
[2020-10-19] MEDS ORDERED: NITROGLYCERIN 0.4 MG SL TAB SL PRN (14:00)
[2020-10-19] MEDS ORDERED: SODIUM CHLORIDE 0.9% 1,000 ML IV ONE (14:00)
[2020-10-19] MEDS ORDERED: TOBRAMYCIN PER PHARMACY 0 ML IV SCH (14:00)
[2020-10-19] MEDS ORDERED: cefTAZidime 1 GM in SODIUM CHL 0.9% 50 ML IV ONE (14:45)
[2020-10-19 15:22] LABS: INR 1.05 (0.9-1.15); Partial Thromboplastin Time 30.1 sec (23.0-31.2)
[2020-10-19] MEDS: ACCU-CHEK COMFORT CURVE STRIP VI SCH ×2 (16:48→22:25)
[2020-10-19] MEDS: InsuLIN REG 1unit/0.01ml Soln (100units/ml) SC SCH ×2 (16:55→22:24)
[2020-10-19] MEDS: ATORVASTATIN 20 MG TAB PO SCH (18:42)
[2020-10-19] MEDS: PANTOPRAZOLE 40 MG TAB PO SCH (22:25)
[2020-10-19] MEDS: LINEZOLID 600MG/300ML 300 ML IV SCH (22:32)
[2020-10-20 01:27] VITALS: BP 167/81
[2020-10-20] MEDS ORDERED: INFLUENZA QUAD 2020-2021 0.5 ML SYRG IM ONE (01:30)
[2020-10-20 04:52] VITALS: BP 156/74
[2020-10-20] MEDS: ACCU-CHEK COMFORT CURVE STRIP VI SCH ×3 (06:51→16:59)
[2020-10-20] MEDS: InsuLIN REG 1unit/0.01ml Soln (100units/ml) SC SCH ×3 (06:51→17:00)
[2020-10-20 08:30] VITALS: BP 163/74
[2020-10-20] MEDS ORDERED: CITALOPRAM HYDROBR 20 MG TAB PO SCH (10:00)
[2020-10-20] MEDS: MULTIPLE VITAMINS W/ MINERALS TAB PO SCH (10:21)
[2020-10-20] MEDS: PANTOPRAZOLE 40 MG TAB PO SCH ×2 (10:21→23:00)
[2020-10-20] MEDS: LINEZOLID 600MG/300ML 300 ML IV SCH ×2 (10:22→23:00)
[2020-10-20] MEDS: ACETAMINOPHEN 500 MG TAB PO SCH (10:32)
[2020-10-20 12:30] VITALS: BP 140/81
[2020-10-20] MEDS: cefTAZidime 1 GM in SODIUM CHL 0.9% 50 ML IV SCH (12:35)
[2020-10-20 16:41] VITALS: BP 140/73
[2020-10-20 22:00] VITALS: BP 144/70
[2020-10-20] MEDS: ATORVASTATIN 20 MG TAB PO SCH (22:59)
[2020-10-21] MEDS: ACETAMINOPHEN 500 MG TAB PO SCH (00:46)
[2020-10-21 05:00] VITALS: BP 152/68
[2020-10-21] MEDS: InsuLIN REG 1unit/0.01ml Soln (100units/ml) SC SCH ×3 (06:33→12:12)
[2020-10-21 09:00] VITALS: BP 144/67
[2020-10-21] MEDS: LINEZOLID 600MG/300ML 300 ML IV SCH (09:09)
[2020-10-21] MEDS: MULTIPLE VITAMINS W/ MINERALS TAB PO SCH (09:09)
[2020-10-21] MEDS: PANTOPRAZOLE 40 MG TAB PO SCH (09:09)
[2020-10-21] MEDS: cefTAZidime 1 GM in SODIUM CHL 0.9% 50 ML IV SCH (09:19)
[2020-10-21] MEDS: ACCU-CHEK COMFORT CURVE STRIP VI SCH ×2 (12:12)
[2020-10-21 13:00] VITALS: BP 139/70
[2020-10-21] MEDS ORDERED: MUPIROCIN 2% OINT 15gm or 22gm EACHNOSTRI SCH (22:00)
== END 2020-10-21 16:38 | disposition home health service (06) | DRG 603 ==
LOC: ER 10:33 → TELE 13:54 → TELE-CENTR 23:10
PROVIDERS: ADMIT Nurse Practitioner Acute Care; ATTEND Internal Medicine
DX: L03.311 Cellulitis of abdominal wall (principal); N17.9 Acute kidney failure, unspecified; D53.9 Nutritional anemia, unspecified; E11.22 Type 2 diabetes mellitus with diabetic chronic kidney disease; E78.5 Hyperlipidemia, unspecified; I12.9 Hypertensive chronic kidney disease with stage 1 through stage 4 chronic kidney disease, or unspecified chronic kidney disease; B96.5 Pseudomonas (aeruginosa) (mallei) (pseudomallei) as the cause of diseases classified elsewhere; B95.62 Methicillin resistant Staphylococcus aureus infection as the cause of diseases classified elsewhere; Z20.822 Contact with and (suspected) exposure to COVID-19; K27.9 Peptic ulcer, site unspecified, unspecified as acute or chronic, without hemorrhage or perforation; N18.30 Chronic kidney disease, stage 3 unspecified; Z79.84 Long term (current) use of oral hypoglycemic drugs; Z79.899 Other long term (current) drug therapy; Z80.1 Family history of malignant neoplasm of trachea, bronchus and lung; Z82.5 Family history of asthma and other chronic lower respiratory diseases; Z83.3 Family history of diabetes mellitus; Z86.14 Personal history of Methicillin resistant Staphylococcus aureus infection; Z88.8 Allergy status to other drugs, medicaments and biological substances
CPT/HCPCS: 36415; 80053; 82962; 83605; 85025; 85610; 85652; 85730; 87040; 87081; 87426; 96365; 96367; 96372; G0378; J1815; J3490; J7060

== ENCOUNTER 2020-11-02 14:05 | Emergency (ER) | payer BC ==
[~2020-11-02] VITALS: Ht 165.1 cm; Wt 64.9 kg
[2020-11-02] VITALS (8 sets, daily range): BP systolic 125–160; BP diastolic 48–105
[~2020-11-02 14:05] MED LIST changes: -CITA10TA70 PO; -SIMV-8 PO; -TERA5CAP42 PO
[2020-11-02] MEDS ORDERED: DEXTROSE (50%) 50ML SYRG IV ONE (20:45)
[2020-11-03 00:15] VITALS: BP 154/71
== END 2020-11-03 00:35 | disposition home or self-care (01) ==
LOC: ER 14:05
DX: I12.9 Hypertensive chronic kidney disease with stage 1 through stage 4 chronic kidney disease, or unspecified chronic kidney disease (principal); E11.22 Type 2 diabetes mellitus with diabetic chronic kidney disease; N18.9 Chronic kidney disease, unspecified; D63.1 Anemia in chronic kidney disease; Z79.899 Other long term (current) drug therapy
CPT/HCPCS: 36430; 82962; 86850; 86900; 86901; 86920; 96374; 99285; J7040; J7042; P9016

== ENCOUNTER → 2020-11-09 | Outpatient (CLI) | payer BC | END | disposition home or self-care (01) | LOC: LAB 16:03 | PROVIDERS: ATTEND Nurse Practitioner | DX: L03.311 Cellulitis of abdominal wall (principal) | CPT/HCPCS: 87205 ==

== ENCOUNTER → 2020-11-30 | Outpatient (CLI) | payer BC | END | disposition home or self-care (01) | LOC: LAB 14:57 | PROVIDERS: ATTEND Internal Medicine | DX: L03.311 Cellulitis of abdominal wall (principal) | CPT/HCPCS: 87205 ==

== ENCOUNTER 2020-12-07 13:57 | Emergency (ER) | payer BC ==
[~2020-12-07] VITALS: Ht 165.1 cm; Wt 62.1 kg
[2020-12-07 14:21] LABS: Basophils # (auto) 0 10 ^3/uL (0-0.2); Basophils % (auto) 0.3 % (0.0-2.0); Eosinophils # (auto) 0 10 ^3/uL (0-0.8); Eosinophils % (auto) 0.2 % (0.0-7.0); Hematocrit 36.1 % (41.0-53.0); Hemoglobin 11.8 g/dL (13.5-17.5); Lymphocytes # (auto) 1.7 10 ^3/uL (0.4-5.4); Lymphocytes % (auto) 15.4 % (10.0-50.0); Mean Corpuscular Hemoglobin 31.9 pg (28.0-32.0); Mean Corpuscular Hgb Conc. 32.7 g/dL (32.0-36.0); Mean Corpuscular Volume 97.7 fL (80.0-100.0); Monocytes # (auto) 0.9 10 ^3/uL (0-1.3); Neutrophils # (auto) 8.2 10 ^3/uL (1.6-8.6); Neutrophils % (auto) 76.1 % (37.0-80.0); Platelet Count (auto) 478 10^3/uL (140-450); Red Blood Cells 3.69 10^6/uL (4.5-5.90); Red Cell Distribution Width 20.1 % (11.8-14.3); White Blood Cell 10.7 10^3/uL (4.4-10.8)
[2020-12-07 14:41] LABS: Albumin 2.3 g/dL (3.4-5.0); Anion Gap 10 (5-15); Blood Urea Nitrogen 73 mg/dL (7-18); Calcium 8.1 mg/dL (8.5-10.1); Carbon Dioxide 15 mmol/L (21-32); Chloride 114 mmol/L (98-107); Glucose 204 mg/dL (74-106); Potassium 4.4 mmol/L (3.5-5.1); Sodium 139 mmol/L (136-145)
[2020-12-07 14:47] LABS: Alanine Aminotransferase 23 U/L (16-61); Alkaline Phosphatase 154 U/L (45-117); Aspartate Aminotransferase 11 U/L (15-37); Bilirubin, Total 0.4 mg/dL (0.2-1.0); GFR African American 30 mL/min; GFR Non-African American 25 mL/min; Total Protein 6.6 g/dL (6.4-8.2)
[2020-12-07] MEDS ORDERED: SODIUM CHLORIDE 0.9% 500 ML IV ONE (15:45)
[2020-12-07 21:41] VITALS: BP 172/75
== END 2020-12-07 22:21 | disposition home or self-care (01) ==
LOC: ER 13:57
DX: R53.1 Weakness (principal); D64.9 Anemia, unspecified; A49.02 Methicillin resistant Staphylococcus aureus infection, unspecified site; E11.22 Type 2 diabetes mellitus with diabetic chronic kidney disease; I12.9 Hypertensive chronic kidney disease with stage 1 through stage 4 chronic kidney disease, or unspecified chronic kidney disease; N18.9 Chronic kidney disease, unspecified; E78.5 Hyperlipidemia, unspecified; Z90.89 Acquired absence of other organs; Z79.899 Other long term (current) drug therapy; Z79.2 Long term (current) use of antibiotics; Z91.018 Allergy to other foods; Z20.822 Contact with and (suspected) exposure to COVID-19
CPT/HCPCS: 36415; 80053; 84484; 85025; 87426; 93005; 96360; 99284; J7040

== ENCOUNTER 2020-12-14 18:08 | Emergency (ER) | payer BC ==
[~2020-12-14] VITALS: Ht 182.9 cm; Wt 68.0 kg
[2020-12-14] MEDS ORDERED: SODIUM BICARBONATE 8.4% INJ 50ML SYRINGE IV ONE (18:09)
[2020-12-14] MEDS ORDERED: AMIODARONE HCL (50 MG/ ML) 3 ML VIAL IV ONE (18:09)
[2020-12-14] MEDS ORDERED: EPINEPHrine HCL 1 MG/10 ML SYRG IV ONE (18:09)
[2020-12-14 18:34] VITALS: BP 0/0
== END 2020-12-15 00:15 ==
LOC: ER 18:08
DX: I46.9 Cardiac arrest, cause unspecified (principal); J96.01 Acute respiratory failure with hypoxia; K92.2 Gastrointestinal hemorrhage, unspecified; E11.9 Type 2 diabetes mellitus without complications; I10 Essential (primary) hypertension; E78.5 Hyperlipidemia, unspecified; Z79.899 Other long term (current) drug therapy
CPT/HCPCS: 31500; 36556; 92950; 99285; J0171; J0282